=== PATIENT | male | born 1945 | race Caucasian/White ===

== ENCOUNTER 2023-12-24 13:12 | Outpatient (OUT) | payer MEDICARE, OTHER, SELFPAY ==
--- NOTE | 2023-12-24 | XR_ITS ---
The [address] [address] Patient Name: ELIZABETH BOOTH MRN: [id number] date: 1945 Sex: M Assigned Patient Location: [facility] Current Patient Location: Accession/Order Number: [id number] Exam Date: 12/24/2023 13:15 Report Date: 12/26/2023 07:52 At the request of: SUNI GAMBOA Procedure: XR lumbar spine min 4V EXAMINATION: XR lumbar spine min 4V HISTORY: LUMBAR SPINE PAIN COMPARISON: No relevant comparison available. FINDINGS: BONES: Grade 1 retrolisthesis of L3 on 4 and L4 on 5; no change in alignment during flexion and extension. No fracture or bone lesion. Prominent anterior degenerative endplate osteophytes. Moderate marked degenerative facet arthropathy L3-L4 through L5-S1 resulting in bone encroachment on the neural foramen. DISC SPACES: Moderate narrowing L3-L4, L4-L5, L5-S1. Mild narrowing at other levels. PARASPINOUS: Atherosclerotic disease of aorta without appreciable aneurysm. OTHER: Negative. XR/XR lumbar spine min 4V IMPRESSION: 1. Multilevel moderate degenerative disc disease and moderate to marked facet arthropathy with narrowing of the neural foramen at L3-L4 through L5-S1, and likely central canal narrowing. Consider MRI for further evaluation. Electronically authenticated by: BRENDON IRELAND Date: 12/26/2023 07:52
== END 2023-12-24 13:13 | disposition home or self-care (01) ==
LOC: RAD 13:13
PROVIDERS: Visit Provider Orthopaedic Surgery Orthopaedic Surgery of the Spine
DX: M54.50 Low back pain, unspecified (principal); M51.36 Other intervertebral disc degeneration, lumbar region
CPT/HCPCS: 72110

== ENCOUNTER 2024-02-26 09:49 | Outpatient (OUT) | payer MEDICARE, OTHER, SELFPAY ==
--- NOTE | 2024-02-26 | XR_ITS ---
The [address] [address] Patient Name: ELIZABETH BOOTH MRN: [id number] date: 1945 Sex: M Assigned Patient Location: Current Patient Location: Accession/Order Number: [id number] Exam Date: 02/26/2024 09:50 Report Date: 03/01/2024 09:09 At the request of: SUNI GAMBOA Procedure: XR lumbar spine 2-3V EXAMINATION: XR lumbar spine 2-3V HISTORY: LUMBAR SPINE PAIN COMPARISON: XR lumbar spine 12/24/2023 FINDINGS: BONES: Posterior mechanical fusion of L3-4-5 (L3-4-5 on the left via pedicle screws and rods; L4-5 on the right via pedicle screws and rods). Posterior decompression of L3, L4, and L5. Slight left convex curvature lumbar spine. Stable grade 1 retrolisthesis of L3 on 4 and L4 on 5. Multilevel moderate degenerative facet arthropathy. DISC SPACES: Mild/moderate disc space narrowing L3-4 and L4-5. Mild narrowing L5-S1. PARASPINOUS: Negative. No paraspinous abnormality is seen. OTHER: Negative. XR/XR lumbar spine 2-3V IMPRESSION: 1. Posterior mechanical fusion and decompression of lower lumbar spine with grossly stable degenerative changes. Electronically authenticated by: BRENDON IRELAND Date: 03/01/2024 09:09
== END 2024-02-26 09:50 | disposition home or self-care (01) ==
LOC: EC 09:49
PROVIDERS: Visit Provider Orthopaedic Surgery Orthopaedic Surgery of the Spine
DX: M54.50 Low back pain, unspecified (principal); Z98.1 Arthrodesis status
CPT/HCPCS: 72100

== ENCOUNTER 2024-06-17 11:23 | Outpatient (OUT) | payer MEDICARE, OTHER, SELFPAY ==
--- NOTE | 2024-06-17 | XR_ITS ---
[address] [address] Patient Name: ELIZABETH BOOTH MRN: [id number] date: 1945 Sex: M Assigned Patient Location: Current Patient Location: Accession/Order Number: [id number] Exam Date: 06/17/2024 22:07 Report Date: 06/17/2024 22:13 At the request of: SUNI GAMBOA MD Procedure: XR lumbar spine 2-3V 2 views Lumbar Spine HISTORY: Lumbar spine pain. Follow-up lumbar fusion COMPARISON: 02/26/2024 POSTSURGICAL CHANGES: Stable hardware. BONY ALIGNMENT: Stable HYPERMOBILITY:No bending imaging. LISTHESIS:Similar mild degenerative listhesis FRACTURE: None DEGENERATIVE CHANGES: Similar degenerative change SOFT TISSUES: Atherosclerosis of the aorta BONY MINERALIZATION:Adequate XR/XR lumbar spine 2-3V IMPRESSION: Stable degenerative and postsurgical change. Impression dictated by: Jhon Epstein M.D.06/17/2024 10:13 PM Dictation Location: [facility] Electronically authenticated by: [id number] Y Date: 06/17/2024 22:13
--- OUTSIDE RECORDS SUMMARY | 2024-06-17 11:28 | XMS_ITS | CCD ---
Author Organization [facility] Care Team Providers Care Laboratory Inspector Name Role Phone Dario Smith Unavailable Unavailable Dario Smith Unavailable Unavailable Tereso Orozco Primary Care Provider Tereso Orozco Primary Care Provider CHRISTINE, RONNIE H. Referring Unavailable TEREOS OROZCO Primary Care Unavailable CHRISTINE, RONNIE H. Admitting Unavailable CHRISTINE, RONNIE H. Attending Unavailable TERESO OROZCO Primary Care Unavailable CHRISTINE, RONNIE H. Attending Unavailable CHRISTINE, RONNIE H. Referring Unavailable TERESO OROZCO Primary Care Unavailable Tereso Orozco Primary Care Provider [phone] [place] EMERGENCY MEDICINE - PHYSICAL EDUCATION AIDE, Tereso Doll Primary Care Provider Ernesto EMERGENCY MEDICINE - PHYSICAL EDUCATION AIDE, Tereso Doll Primary Care Provider Ernesto EMERGENCY MEDICINE - PHYSICAL EDUCATION AIDE, Tereso Doll Primary Care Provider Unavailable Primary Care Provider Unavailabl e [place] EMERGENCY MEDICINE - PHYSICAL EDUCATION AIDE, Tereso Doll Primary Care Provider Ernesto EMERGENCY MEDICINE - PHYSICAL EDUCATION AIDE, Tereso Doll Primary Care Provider [place] PHYSICAL EDUCATION AIDE, Tereso Doll Primary Care Provider Ernesto MARTE, Tereso Doll Primary Care Provider [phone] CLEOPATRA SOTELO Attending Unavailable CLEOPATRA SOTELO Admitting Unavailable TERESO OROZCO Primary Care Unavailable TERESO OROZCO Primary Care Unavailable TERESO OROZCO Referring Unavailable VIOLET PIÑA Attending Unavailable VIOLET PIÑA Referring Unavailable TERESO OROZCO Primary Care Unavailable TERESO OROZCO Primary Care Unavailable ALANNA BEATTY Referring Unavailable HARLEEN BARBA Referring Unavailable TERESO OROZCO Primary Care Unavailable TERESO OROZCO Referring Unavailable TERESO OROZCO Primary Care Unavailable OYLA, SELVON F Referring Unavailable TERESO OROZCO Primary Care Unavailable TERESO OROZCO Referring Unavailable ERNESTO, TERESO Doll Primary Care Unavailable ERNESTO, TERESO Doll Primary Care Unavailable TERESO OROZCO Referring Unavailable ERNESTO, TERESO Doll Primary Care Unavailable TERESO OROZCO Referring Unavailable AYANA, VIOLET Attending Unavailable AYANA, VIOLET Referring Unavailable ERNESTO, TERESO Doll Primary Care Unavailable ERNESTO, TERESO Doll Primary Care Unavailable ERNESTOTERESO Referring Unavailable YOLA, SELVON F Referring Unavailable ERNESTO, TERESO Doll Primary Care Unavailable YOLA, SELVON F Referring Unavailable ERNESTO, TERESO Doll Primary Care Unavailable YOLA, SELVON F Referring Unavailable ERNESTO, TERESO Doll Primary Care Unavailable ERNESTO, TERESO Doll Primary Care Unavailable ERNESTO, TERESO Doll Referring Unavailable ERNESTO, TERESO Doll Primary Care Unavailable ERNESTO, TERESO Doll Referring Unavailable AYANA, VIOLET Referring Unavailable ERNESTO, TERESO Doll Primary Care Unavailable TERESO OROZCO Primary Care Unavailable TERESO OROZCO Referring Unavailable YOLA, SELVON F Referring Unavailable TERESO OROZCO Primary Care Unavailable SOBIA DIANA Attending Unavailable YOLA, SELVON Referring Unavailable YOLA, SELVON Admitting Unavailable ERNESTO, TERESO Doll Primary Care Unavailable LILLY HAM Attending Unavailable YOLA, SELVON Referring Unavailable TERESO OROZCO Primary Care Unavailable YOLA, SELVON Admitting Unavailable SOBIA DIANA Attending Unavailable YOLA, SELVON Referring Unavailable TERESO OROZCO Primary Care Unavailable YOLA, SELVON Admitting Unavailable SOBIA DIANA Attending Unavailable YOLA, SELVON Referring Unavailable TERESO OROZCO Primary Care Unavailable YOLA, SELVON Admitting Unavailable LISSY JACQUES Attending Unavailable YOLA, SELVON Referring Unavailable TERESO OROZCO Primary Care Unavailable YOLA, SELVON Admitting Unavailable LISSY JACQUES Attending Unavailable YOLA, SELVON Referring Unavailable TERESO OROZCO Primary Care Unavailable YOLA, SELVON Admitting Unavailable ERNESTO, TERESO Doll Primary Care Unavailable DA GASPAR Attending Unavailable YOLA, SELVON Referring Unavailable YOLA, SELVON Admitting Unavailable LISSY JACQUES Attending Unavailable YOLA, SELVON Referring Unavailable YOLA, SELVON Admitting Unavailable TERESO OROZCO Primary Care Unavailable NEWHEBRONSONDRA Attending Unavailable YOLA, SELVON Referring Unavailable YOLA, SELVON Admitting Unavailable TERESO OROZCO Primary Care Unavailable [facility] Attending Unavailable YOLA, SELVON Referring Unavailable YOLA, SELVON Admitting Unavailable TERESO OROZCO Primary Care Unavailable TERESO OROZCO Primary Care Unavailable LISSY JACQUES Attending Unavailable YOLA, SELVON Referring Unavailable YOLA, SELVON Admitting Unavailable GOMPFDA Attending Unavailable YOLA, SELVON Referring Unavailable TERESO OROZCO Primary Care Unavailable YOLA, SELVON Admitting Unavailable GOMPFDA Attending Unavailable YOLA, SELVON Referring Unavailable TERESO OROZCO Primary Care Unavailable YOLA, SELVON Admitting Unavailable DK ANAYA Attending Unavailable YOLA, SELVON Referring Unavailable TERESO OROZCO Primary Care Unavailable YOLA, SELVON Admitting Unavailable GOMPFDA Attending Unavailable YOLA, SELVON Referring Unavailable TERESO OROZCO Primary Care Unavailable YOLA, SELVON Admitting Unavailable DK ANAYA Attending Unavailable YOLA, SELVON Referring Unavailable TERESO OROZCO Primary Care Unavailable YOLA, SELVON Admitting Unavailable LISSY JACQUES Attending Unavailable YOLA, SELVON Referring Unavailable TERESO OROZCO Primary Care Unavailable YOLA, SELVON Admitting Unavailable LISSY JACQUES Attending Unavailable YOLA, SELVON Referring Unavailable TERESO OROZCO Primary Care Unavailable YOLA, SELVON Admitting Unavailable SOBIA DIANA Attending Unavailable YOLA, SELVON Referring Unavailable TERESO OROZCO Primary Care Unavailable YOLA, SELVON Admitting Unavailable SOBIA DIANA Attending Unavailable YOLA, SELVON Referring Unavailable TERESO OROZCO Primary Care Unavailable YOLA, SELVON Admitting Unavailable SOBIA DIANA Attending Unavailable YOLA, SELVON Referring Unavailable YOLA, SELVON Admitting Unavailable TERESO OROZCO Primary Care Unavailable GOADINFDA Attending Unavailable YOLA, SELVON Referring Unavailable TERESO OROZCO Primary Care Unavailable YOLA, SELVON Admitting Unavailable LILLY HAM Attending Unavailable YOLA, SELVON Referring Unavailable TERESO OROZCO Primary Care Unavailable HARLEEN BARBA Admitting Unavailable Unallocated Shai GOFF Provider Primary Care Josafati andreia Violet Piña DO Unavailable CAITIE DEL CID Attending Unavailable Medications Current Medications Medication Drug Class(es) Dates Sig (Normalized) Sig (Original) acetaminophen 325 mg / oxyCODONE hydrochloride 7.5 mg oral tablet (2 sources) Opioid Agonist Start: 12-22-2019 End: 01-05-2020 oxyCODONE-acetaminop hen (PERCOCET) 7.5-325 MG per tablet Indications: Postoperative pain Take 1 tablet by mouth 2 times daily for 14 days. Intended supply: 30 days 40 tablet 0 12/22/2019 01/05/2020 Active albuterol 0.83 mg/ml inhalation solution (17 sources) beta2-Adrenergic Agonist Start: 12-28-2023 albuterol (PROVENTIL) (2.5 MG/3ML) 0.083% nebulizer solution Indications: Centrilobular emphysema (HCC) Take 3 mLs by nebulization every 6 hours as needed for Wheezing 360 mL 1 12/28/2023 Active Start: 06-26-2022 albuterol (PRO VENTIL) (2.5 MG/3ML) 0.083% nebulizer solution Indications: Centrilobular emphysema (HCC) USE 1 VIAL VIA NEBULIZER EVERY 4 HOURS NEEDED FOR WHEEZING or SHORTNESS OF BREATH 360 mL 1 06/26/2022 Active Start: 10-22-2021 albuterol (PRO VENTIL) (2.5 MG/3ML) 0.083% nebulizer solution Indications: Centrilobular emphysema (HCC) Take 3 mLs by nebulization every 4 hours as needed for Wheezing or Shortness of Breath 120 each 1 10/22/2021 Active amLODIPine 5 mg oral tablet (20 sources) Dihydropyridine Calcium Channel Amaris Start: 10-12-2023 take 1 tablet by mouth once daily for hypertension amLODIPine (NORVASC) 5 MG tablet Indications: Essential hypertension TAKE 1 TABLET BY MOUTH DAILY FOR HYPERTENSION AND SINUS TACHYCARDIA 90 tablet 3 10/12/2023 Active Start: 05-17-2023 take 1 tablet by mouth once da ernesto amLODIPine (NORVASC) 5 MG tablet Indications: Essential hypertension Take 1 tablet by mouth daily Hypertension, and sinus tachycardia 90 tablet 1 05/17/2023 Active Start: 10-27-2021 take 1 tablet by norm th in the morning for hypertension amLODIPine (NORVASC) 2.5 MG tablet Indications: Essential hypertension Take 1 tablet by mouth in the morning. For high blood pressure. 90 tablet 2 10/27/2021 Active Start: 09-05-2021 amLODIPine (NO RVASC) 2.5 MG tablet Indications: Essential hypertension TAKE 1 TABLET EVERY DAY 90 tablet 1 09/05/2021 Active Start: 02-19-2021 take 1 tablet by mouth once da ernesto amLODIPine (NORVASC) 2.5 MG tablet Indications: Essential hypertension Take 1 tablet by mouth daily 90 tablet 1 02/19/2021 Active Start: 09-17-2020 amLODIPine (NO RVASC) 2.5 MG tablet Indications: Essential hypertension TAKE 1 TABLET EVERY DAY 90 tablet 1 09/17/2020 Active Start: 06-30-2019 take 1 tablet by mouth once da ernesto amLODIPine (NORVASC) 2.5 MG tablet Indications: Essential hypertension Take 1 tablet by mouth daily 90 tablet 1 02/17/2020 Active Start: 11-10-2018 End: 02-08-2019 take 1 tablet by mouth once daily amLODIPine (NORVASC) 2.5 MG tablet Indications: Essential hypertension Take 1 tablet by mouth daily 90 tablet 1 11/10/2018 02/08/2019 Active 12 hr buPROPion hydrochloride 150 mg extended release oral tablet (1 source) Aminoketone Start: 02-19-2021 take 1 tablet by mouth twice daily buPROPion (WELLBUTRIN SR) 150 MG extended release tablet Take 1 tablet by mouth 2 times daily Smoking cessation 60 tablet 2 02/19/2021 Active calcium chloride 0.0014 meq/ml / potassium chloride 0.004 meq/ml / sodium chloride 0.103 meq/ml / sodium lactate 0.028 meq/ml injectable solution (3 sources) Start: 06-16-2023 lactated ringe rs IV soln infusion Start: 12-22-2019 lactated ringe rs infusion cephalexin 500 mg oral capsule (2 sources) Cephalosporin Antibacterial Start: 12-22-2019 End: 12-29-2019 take 1 capsule by mouth three times daily cephALEXin (KEFLEX) 500 MG capsule Take 1 capsule by mouth 3 times daily for 7 days 21 capsule 0 12/22/2019 12/29/2019 Active clindamycin 300 mg oral capsule (1 source) Lincosamide Antibacterial Start: 03-01-2021 End: 03-08-2021 take 1 capsule by mouth three times daily clindamycin (CLEOCIN) 300 MG capsule Take 1 capsule by mouth 3 times daily for 7 days 21 capsule 0 03/01/2021 03/08/2021 Active CPAP Machine MISC (20 sources) CPAP Machine MIS C by Does not apply route daily Active CPAP Machine MIS C by Does not apply route daily 0 Active diazePAM 5 mg oral tablet (2 sources) Benzodiazepine Start: 12-22-2019 End: 01-05-2020 take 1 tablet by mouth every eight hours as needed for anxiety diazePAM (VALIUM) 5 MG tablet Indications: Postoperative pain Take 1 tablet by mouth every 8 hours as needed for Anxiety or Sleep for up to 14 days. 40 tablet 0 12/22/2019 01/05/2020 Active 1 ml diphenhydrAMINE hydrochloride 50 mg/ml cartridge (1 source) Histamine-1 Receptor Antagonist Start: 12-22-2019 End: 12-22-2019 diphenhydrAMINE (BENADRYL) injection 12.5 mg 2 ml fentaNYL 0.05 mg/ml injection (1 source) Opioid Agonist Start: 12-22-2019 fentaNYL (SUBLIMAZE) injection 25 mcg 30 actuat fluticasone furoate 0.1 mg/actuat / umeclidinium 0.0625 mg/actuat / vilanterol 0.025 mg/actuat dry powder inhaler (2 sources) Anticholinergic, Corticosteroid, beta2-Adrenergic Agonist Start: 10-25-2019 take 1 puff(s) by inhalation once daily fluticasone-umeclid in-vilant (TRELEGY ELLIPTA) 100-62.5-25 MCG/INH AEPB Inhale 1 puff into the lungs daily 1 each 0 10/25/2019 Active gabapentin 300 mg oral capsule (2 sources) Anti-epileptic Agent Start: 03-18-2024 take 1 capsule by mouth three times daily gabapentin (Neurontin) 300 MG capsule 1 cap(s) orally 3 times a day for 30 day(s) 03/18/2024 Active hydrocortisone 25 mg/ml topical cream (1 source) Corticosteroid Start: 12-20-2018 End: 01-04-2019 hydrocortisone (ANUSOL-HC) 2.5 % rectal cream Insert into the rectum 2 (two) times a day Then as needed for hemorrhoid flare up for 15 days . 1 g 1 12/20/2018 01/04/2019 Active ipratropium bromide 0.2 mg/ml inhalation solution (17 sources) Anticholinergic Start: 12-28-2023 ipratropium (ATROVENT) 0.02 % nebulizer solution Indications: Centrilobular emphysema (HCC) Take 2.5 mLs by nebulization 3 times daily 250 mL 1 12/28/2023 Active Start: 10-24-2022 ipratropium (A TROVENT) 0.02 % nebulizer solution Indications: Centrilobular emphysema (HCC) Take 2.5 mLs by nebulization 4 times daily 202 mL 1 10/24/2022 Active Start: 10-22-2021 ipratropium (A TROVENT) 0.02 % nebulizer solution Indications: Centrilobular emphysema (HCC) Take 2.5 mLs by nebulization 4 times daily 67.5 mL 1 10/22/2021 Active 10 ml lidocaine hydrochloride 10 mg/ml injection (1 source) Antiarrhythmic, Amide Local Anesthetic Start: 12-22-2019 End: 12-22-2019 lidocaine PF 1 % injection 1 mL meloxicam 7.5 mg oral tablet (9 sources) Nonsteroidal Anti-inflammatory Drug Start: 11-10-2023 take 1 tablet by mouth once daily as needed for pain meloxicam (MOBIC) 7.5 MG tablet Take 1 tablet by mouth daily as needed for Pain (for right hip pain/osteoarthritis take with food) Use sparingly 30 tablet 11/10/2023 Active 1 ml meperidine hydrochloride 25 mg/ml cartridge (1 source) Opioid Agonist Start: 12-22-2019 meperidine (DEMEROL) injection 12.5 mg 2 ml metoclopramide 5 mg/ml prefilled syringe (1 source) Dopamine-2 Receptor Antagonist Start: 12-22-2019 End: 12-22-2019 metoclopramide (REGLAN) injection 10 mg montelukast 10 mg oral tablet (20 sources) Leukotriene Receptor Antagonist Start: 02-25-2023 take 1 tablet by mouth once daily montelukast (SINGULAIR) 10 MG tablet Indications: Centrilobular emphysema (HCC) Take 1 tablet by mouth nightly 90 tablet 1 02/25/2023 Active Start: 10-27-2021 take 1 tablet by norm th once daily montelukast (SINGULAIR) 10 MG tablet Take 1 tablet by mouth nightly 90 tablet 2 10/27/2021 Active Start: 02-19-2021 take 1 tablet by norm th once daily montelukast (SINGULAIR) 10 MG tablet Take 1 tablet by mouth nightly 90 tablet 2 02/19/2021 Active Start: 08-27-2020 montelukast (S INGULAIR) 10 MG tablet TAKE 1 TABLET EVERY NIGHT 90 tablet 1 08/27/2020 Active Start: 02-17-2020 take 1 tablet by norm th once daily montelukast (SINGULAIR) 10 MG tablet Take 1 tablet by mouth nightly 90 tablet 1 02/17/2020 Active Start: 10-11-2019 End: 12-22-2019 montelukast (SINGULAIR) 10 M G tablet TAKE 1 TABLET EVERY DAY 90 tablet 1 10/11/2019 12/22/2019 Discontinued (Stop Taking at Discharge) Start: 08-27-2018 take 1 tablet by norm th once daily montelukast (SINGULAIR) 10 MG tablet Take 1 tablet by mouth daily 90 tablet 1 08/27/2018 Active omeprazole 20 mg delayed release oral capsule (20 sources) Proton Pump Inhibitor Start: 04-20-2023 omeprazole (PRILOSEC ) 20 MG delayed release capsule Indications: Gastroesophageal reflux disease without esophagitis TAKE 1 CAPSULE EVERY DAY FOR GASTRIC REFLUX 90 capsule 3 09/17/2023 Active Start: 10-27-2021 take 1 capsule by mo uth in the morning for gastroesophageal reflux disease omeprazole (PRILOSEC) 20 MG delayed release capsule Indications: Gastroesophageal reflux disease without esophagitis Take 1 capsule by mouth in the morning. For gastric reflux. 90 capsule 1 10/27/2021 Active Start: 09-05-2021 omeprazole (MD ILOSEC) 20 MG delayed release capsule Indications: Gastroesophageal reflux disease without esophagitis TAKE 1 CAPSULE EVERY DAY 90 capsule 1 09/05/2021 Active Start: 02-19-2021 take 1 capsule by mouth once d aily omeprazole (PRILOSEC) 20 MG delayed release capsule Indications: Gastroesophageal reflux disease without esophagitis Take 1 capsule by mouth Daily 90 capsule 1 02/19/2021 Active Start: 08-27-2020 omeprazole (MD ILOSEC) 20 MG delayed release capsule Indications: Gastroesophageal reflux disease without esophagitis TAKE 1 CAPSULE EVERY DAY 90 capsule 1 08/27/2020 Active Start: 06-30-2019 take 1 capsule by mouth once d aily omeprazole (PRILOSEC) 20 MG delayed release capsule Indications: Gastroesophageal reflux disease without esophagitis Take 1 capsule by mouth Daily 90 capsule 1 02/17/2020 Active Start: 11-10-2018 End: 02-08-2019 take 1 capsule by mouth once daily omeprazole (PRILOSE C) 20 MG delayed release capsule Indications: Gastroesophageal reflux disease without esophagitis Take 1 capsule by mouth Daily 90 capsule 1 11/10/2018 02/08/2019 Active 2 ml ondansetron 2 mg/ml injection (1 source) Serotonin-3 Receptor Antagonist Start: 12-22-2019 End: 12-22-2019 ondansetron (ZOFRAN) injection 4 mg pramipexole dihydrochloride 0.125 mg oral tablet (9 sources) Nonergot Dopamine Agonist Start: 12-04-2023 take 1 tablet by mouth once daily pramipexole (MIRAPEX) 0.125 MG tablet Take 1 tablet by mouth nightly 3 hours before bed for restless leg 90 tablet 1 12/04/2023 Active Start: 11-10-2023 take 1 tablet by norm th once daily pramipexole (MIRAPEX) 0.125 MG tablet Take 1 tablet by mouth nightly 3 hours before bed for restless leg 30 tablet 0 11/10/2023 Active pravastatin sodium 80 mg oral tablet (20 sources) HMG-CoA Reductase Inhibitor Start: 12-01-2022 pravastatin (PRAVACH OL) 80 MG tablet TAKE 1 TABLET EVERY DAY FOR HYPERCHOLESTEROLEMIA 90 tablet 3 09/17/2023 Active Start: 10-11-2021 pravastatin (P RAVACHOL) 80 MG tablet TAKE 1 TABLET EVERY DAY 90 tablet 1 10/11/2021 Active Start: 02-19-2021 take 1 tablet by norm th once daily pravastatin (PRAVACHOL) 80 MG tablet Take 1 tablet by mouth daily 90 tablet 1 02/19/2021 Active Start: 08-27-2020 pravastatin (P RAVACHOL) 80 MG tablet TAKE 1 TABLET EVERY DAY 90 tablet 1 08/27/2020 Active Start: 10-11-2019 take 1 tablet by norm th once daily pravastatin (PRAVACHOL) 80 MG tablet Take 1 tablet by mouth daily 90 tablet 1 02/17/2020 Active Start: 08-27-2018 End: 08-27-2019 take 1 tablet by mouth once daily in the evening pravastatin (PRAVACHOL) 80 MG tablet Take 1 tablet by mouth every evening 90 tablet 1 08/27/2018 08/27/2019 Active predniSONE 20 mg oral tablet (1 source) Start: 11-16-2019 End: 11-26-2019 take 1 tablet by mouth once daily at mealtime predniSONE (DELTASONE) 20 MG tablet Indications: Lumbosacral radiculopathy at L5 , Foot drop, right Take 1 tablet by mouth daily for 10 days Take with food For lumbar radiculopathy and right foot drop 10 tablet 0 11/16/2019 11/26/2019 Active psyllium 3400 mg powder for oral suspension (1 source) Start: 12-20-2018 End: 03-20-2019 take 1 dose by mouth once daily psyllium husk, with sugar, (METAMUCIL, KONSYL) 3.4 gram packet Take 1 packet by mouth daily Mix in a glass of water daily . 90 packet 5 12/20/2018 03/20/2019 Active Respiratory Therapy Supplies (NEBULIZER/TUBING/MOUT HPIECE) KIT (17 sources) Start: 10-22-2021 Respiratory Th erapy Supplies (NEBULIZER/TUBING/MOUTHP IECE) KIT Indications: Centrilobular emphysema (HCC) 1 kit by Does not apply route daily as needed (shortness of breath/copd) 1 kit 10/22/2021 Active Start: 10-22-2021 Respiratory Th erapy Supplies (NEBULIZER/TUBING/MOUTHPIECE) KIT Indications: Centrilobular emphysema (HCC) 1 kit by Does not apply route daily as needed (shortness of breath/copd) 1 kit 0 10/22/2021 Active sennosides, care home 8.6 mg oral tablet (2 sources) Start: 12-22-2019 End: 12-21-2020 take 2 tablets by mouth twice daily senna (SENOKOT) 8.6 MG tablet Take 2 tablets by mouth 2 times daily 60 tablet 11 12/22/2019 12/21/2020 Active 3 ml sodium chloride 9 mg/ml injection (3 sources) Start: 12-22-2019 sodium chlorid e flush 0.9 % injection 10 mL Start: 12-20-2018 End: 12-20-2018 sodium chloride 0.9% (NS) thiamine 50 mg oral tablet (1 source) Start: 02-17-2020 take 1 capsule by mouth once daily Thiamine HCl 50 MG CAPS Take 50 mg by mouth daily Mild alcohol use 14 capsule 0 02/17/2020 Active Completed/Discontinued Medications Medication Drug Class(es) Dates Sig (Normalized) Sig (Original) gadobenate dimeglumine (MULTIHANCE) injection 20 mL (1 source) Start: 06-10-2023 End: 06-10-2023 gadobenate dimeglumine (MULTIHANCE) injection 20 mL technetium sestamibi (CARDIOLITE) injection 10 millicurie (1 source) Start: 02-03-2022 End: 02-03-2022 technetium sestamibi (CARDIOLITE) injection 10 millicurie technetium sestamibi (CARDIOLITE) injection 30 millicurie (1 source) Start: 02-03-2022 End: 02-03-2022 technetium sestamibi (CARDIOLITE) injection 30 millicurie Problems Active Problems Problem Classification Problem Date Documented Date Episodic/Chronic Acquired foot deformities (1 source) Right foot drop; Translations: [Foot drop, right] Alcohol-related disorders (20 sources) Alcohol abuse; Translations: [Alcohol abuse, uncomplicated] Onset: 09-28-2017 09-28-2017 Chronic Chronic obstructive pulmonary disease and bronchiectasis (20 sources) Centriacinar emphysema; Translations: [Centrilobular emphysema] Onset: 10-22-2021 Chronic Coronary atherosclerosis and other heart disease (1 source) Calcification of coronary artery; Translations: [Atherosclerotic heart disease of [place] coronary artery without angina pectoris] Chronic Disorders of lipid metabolism (20 sources) Hyperlipidemia; Translations: [Mixed hyperlipidemia] Onset: 04-20-2023 11-11-2011 Chronic Esophageal disorders (20 sources) Gastroesophageal reflux disease without esophagitis; Translations: [Gastro-esophageal reflux disease without esophagitis] Onset: 10-27-2019 10-27-2019 Chronic Essential hypertension (20 sources) Hypertensive disorder; Translations: [Essential hypertension] 11-11-2011 Chronic Malaise and fatigue (3 sources) Asthenia; Translations: [Weakness] Onset: 03-04-2024 03-04-2024 Episodic Osteoarthritis (4 sources) Osteoarthritis of right hip joint; Translations: [Unilateral primary osteoarthritis, right hip] Onset: 11-11-2023 11-11-2023 Chronic Other aftercare (20 sources) Surgical follow-up; Translations: [Encounter for other orthopedic aftercare] Onset: 02-09-2024 01-25-2024 Episodic Other aftercare (3 sources) Follow-up orthopedic assessment; Translations: [Encounter for other orthopedic aftercare] Onset: 04-18-2024 03-04-2024 Episodic Other aftercare (2 sources) Encounter for other orthopedic aftercare; Translations: [Encounter for other orthopedic aftercare] Onset: 02-09-2024 Episodic Other and unspecified benign neoplasm (4 sources) Melanocytic nevus of trunk; Translations: [Melanocytic nevi of trunk] 05-22-2023 Episodic Other connective tissue disease (1 source) Bursitis of olecranon of left elbow; Translations: [Olecranon bursitis, left elbow] Episodic Other lower respiratory disease (1 source) Dyspnea; Translations: [Shortness of breath] Episodic Other nervous system disorders (1 source) Postoperative pain ; Translations: [Postoperative pain] Episodic Other nervous system disorders (1 source) Impairment of balance; Translations: [Other abnormalities of gait and mobility] 06-10-2023 Episodic Other nervous system disorders (1 source) Abnormal gait; Translations: [Unsteadiness on feet] 06-10-2023 Episodic Other non-epithelial cancer of skin (4 sources) History of squamous cell carcinoma of skin; Translations: [Personal history of other malignant neoplasm of skin] 05-22-2023 Episodic Other non-traumatic joint disorders (1 source) Hip pain; Translations: [Pain in right hip] 11-11-2023 Episodic Other screening for suspected conditions (not mental disorders or infectious disease) (8 sources) Patient encounter status; Translations: [Encounter for screening for other suspected endocrine disorder] Onset: 04-20-2023 Episodic Other skin disorders (4 sources) Actinic keratosis; Translations: [Actinic keratosis] 05-22-2023 Episodic Other skin disorders (4 sources) Seborrheic keratosis; Translations: [Other seborrheic keratosis] 05-22-2023 Episodic Other skin disorders (2 sources) Lentiginosis; Translations: [Other melanin hyperpigmentation] 05-23-2024 Episodic Residual codes; unclassified (2 sources) Preoperative state; Translations: [Pre-operative clearance] Episodic Residual codes; unclassified (1 source) Pain; Translations: [Pain] Episodic Screening and history of mental health and substance abuse codes (1 source) Tobacco use and exposure - finding; Translations: [Personal history of tobacco use] Chronic Screening and history of mental health and substance abuse codes (6 sources) H/O: drug dependency; Translations: [Personal history of nicotine dependence] Onset: 01-06-2024 Episodic Substance-related disorders (20 sources) Nicotine dependence; Translations: [Smoker] Onset: 10-27-2019 10-27-2019 Chronic Unclassified (2 sources) Patient encounter status; Translations: [Preop testing] Unclassified (1 source) Low back pain, unspecified; Translations: [Low back pain, unspecified] Onset: 12-24-2023 Past or Other Problems Problem Classification Problem Date Documented Da te Episodic/Chronic Blindness and vision defects (1 source) Diplopia; Translations: [Diplopia] Onset: 04-20-2023 Episodic Cardiac dysrhythmias (1 source) Tachycardia, unspecified; Translations: [Tachycardia, unspecified] Onset: 04-20-2023 Episodic Conditions associated with dizziness or vertigo (1 source) Dizziness and giddiness; Translations: [Dizziness and giddiness] Onset: 05-06-2023 Episodic Diabetes mellitus without complication (20 sources) Impaired fasting glycaemia; Translations: [Impaired fasting glucose] Resolved: 09-28-2017 09-28-2017 Episodic Other aftercare (2 sources) Other skilled nursing (current) drug therapy; Translations: [Other long term care social worker (current) drug therapy] Onset: 06-02-2023 Episodic Other and unspecified benign neoplasm (20 sources) Adenomatous polyp of colon ; Translations: [Benign neoplasm of colon, unspecified] Onset: 09-28-2017 09-28-2017 Episodic Other gastrointestinal disorders (20 sources) Occult blood in stools; Translations: [Other fecal abnormalities] Onset: 12-26-2015 Resolved: 09-28-2017 09-28-2017 Episodic Other nervous system disorders (1 source) Unsteadiness on feet; Translations: [Unsteadiness on feet] Onset: 06-10-2023 Episodic Other nervous system disorders (3 sources) Other abnormalities of gait and mobility; Translations: [Other abnormalities of gait and mobility] Onset: 04-20-2023 Episodic Other non-traumatic joint disorders (3 sources) Pain in right hip; Translations: [Pain in right hip] Onset: 11-11-2023 Episodic Spondylosis; intervertebral disc disorders; other back problems (20 sources) Lumbosacral radiculopathy; Translations: [Spinal stenosis of lumbar region] Onset: 12-15-2019 12-15-2019 Episodic Unclassified (20 sources) Onset: 04-25-2022 Resolved: 04-25-2022 04-25-2022 Unclassified (1 source) Low back pain, unspecified; Translations: [Low back pain, unspecified] Onset: 12-24-2023 Results Test Name Value Interpretation Reference Range Facility No Panel Informationon 05-23 [facility] CT LUMBAR SPINE WO CONTRASTo n 03-08-2024 CT LUMBAR SPINE WO CONTRAST EXAM: CT LUMBAR SPINE WO CONTRAST CLINICAL INDICATION: Encounter for other orthopedic aftercare COMPARISON: Lumbar spine radiographs 02/26/2024. MRI lumbar spine 03/04/2024. TECHNIQUE: Multiple axial images were obtained of the lumbar spine. Soft tissue and bone windows in coronal and sagittal planes were obtained and reviewed. Dose reduction techniques were achieved by using automated exposure control and/or adjustment of mA and/or kV according to patient size and/or use of iterative reconstruction technique. FINDINGS: Osseous Mineralization: Mild osseous demineralization limits evaluation of fine osseous detail. Trauma: No fracture, traumatic malalignment, facet dislocation, or discrete epidural hemorrhage. Alignment: Mild posterior subluxation of L3 on L4. Vertebral Body Heights: Maintained. Soft Tissues: Normal. Spondylotic Changes: Multilevel spondylotic changes include varying degrees of intervertebral disc height loss, endplate sclerosis, osteophytic ridging, and facet/ligamentum flavum hypertrophy. Postoperative Changes: Intact posterior instrumented fusion from L3 to L5. Screws are well seated. No surrounding lucency. Solid osseous fusion along the posterior elements. Other: No scattered vascular calcifications. IMPRESSION: 1. No acute osseous abnormalities in the lumbar spine. 2. Multilevel spondylotic changes. 3. Intact posterior instrumented fusion from L3 to L5. Screws are well seated. No evidence of hardware complication. Interpreted by: Taina Fang DO Signed by: Taina Fang DO 03/08/24 Final result Normal [facility] MRI LUMBAR SPINE WO CONTRAST on 03-08-2024 MRI LUMBAR SPINE WO CONTRAST EXAM: MRI LUMBAR SPINE WO CONTRAST HISTORY: Encounter for other orthopedic aftercare COMPARISON: MR lumbar spine 11/17/2019. CT lumbar spine 11/16/2022 TECHNIQUE: Multiplanar multisequence MR imaging of the lumbar spine was performed without intravenous contrast. FINDINGS: Alignment: Similar straightening of the normal lumbar lordosis. Unchanged 7 mm retrolisthesis of L3 on L4. Vertebrae: Susceptibility artifact related to posterior spinal fusion hardware at L3-L5. Associated posterior decompressive change spanning L2-L5. Vertebral body heights are maintained. No marrow signal abnormalities to suggest neoplasm. Conus medullaris: Conus terminates in normal position at L2. Normal signal and contour. Degenerative changes: T12-L1: No substantial canal or foraminal stenosis. L1-L2: Moderate facet arthropathy. Disc desiccation with minimal disc height loss. No substantial canal or foraminal stenosis. L2-L3: Disc desiccation with mild disc height loss. Minimal disc bulge. Moderate left and right facet arthropathy. No substantial canal stenosis. Moderate left foraminal stenosis. L3-L4: Moderate disc height loss with uncovering of the disc secondary to retrolisthesis. Small superimposed left central protrusion. Posterior decompressive changes. No substantial canal stenosis. Moderate to advanced right and moderate left foraminal stenosis. L4-L5: Mild disc height loss. Residual marginal osteophytic spurring with small left central protrusion. Posterior decompressive change. No substantial canal stenosis. Advanced right greater than left foraminal stenosis. L5-S1: Moderate left facet arthropathy. Posterior decompressive change. No substantial canal stenosis. Advanced left and moderate right foraminal stenosis. Upper Sacrum: No focal lesion identified. Additional comments: Atrophy of the posterior paraspinal musculature. Bilateral renal cysts are present suboptimally evaluated on the current study, subcentimeter in size predominantly. Slightly larger superior pole left renal cyst measuring 2.5 cm without suspicious features seen on recent noncontrast lumbar spine CT. IMPRESSION: 1. Postsurgical changes of lumbar spine posterior decompression from L2 through L5 with posterior fixation hardware at L3-L5. 2. Improved patency of the spinal canal compared to prior MRI lumbar spine from 2020. 3. Persistent multilevel moderate and more advanced foraminal stenosis as described above. Interpreted by: Lili Raymond DO Signed by: Lili Raymond DO 03/08/24 Final result Normal [facility] CT LUNG SCREENING (INITIAL/A NNUAL)on 01-14-2024 CT LUNG SCREENING (INITIAL/ANNUAL) EXAM: CT LUNG SCREENING (INITIAL/ANNUAL) INDICATION: History of smoking greater than 50 pack years. 53 pack-year smoking history, current smoker. COMPARISON: 12/05/2022. 11/28/2021. 11/27/2020. 11/14/2019. TECHNIQUE: Low-dose axial CT imaging obtained through the chest for the purposes of lung cancer screening. Axial images and multiplanar reformatted images reviewed. Individualized dose optimization technique was used in order to meet ALARA standards for radiation dose reduction. In addition to vendor specific dose reduction algorithms, the dose reduction techniques vary based on the specific scanner utilized but frequently include automated exposure control, adjustment of the mA and/or kV according to patient size, and use of iterative reconstruction technique. FINDINGS: Mild centrilobular emphysema. Calcified mediastinal and left hilar lymph nodes. Pulmonary granulomatous calcifications. Interval development of peripheral peribronchial pulmonary opacities within the right lung base. Stable 3 mm right middle lobe juxta fissural pulmonary nodule. Within the included upper abdomen note is made of hepatic cysts. CORONARY ARTERIES: Coronary calcifications are heavy. FINDINGS: Solid nodule(s): <6 mm or new <4 mm; part solid nodule(s) <6 mm total diameter on baseline screening; nonsolid nodule(s) (GGN): <20 mm or greater than/equal to 20 mm and unchanged or slowly growing; category 3 or 4 nodules unchanged for greater than/equal to 3 months. MANAGEMENT: Continue annual screening with LDCT in 12 months. Lung-RADs S FINDINGS: Peripheral peribronchial pulmonary opacification right lower lobe. MANAGEMENT: Recommend correlation for signs and symptoms of underlying pneumonitis. IMPRESSION: 1. Interval development of peripheral mild peribronchial pulmonary opacities within the right lung base which may be secondary to an underlying infectious or inflammatory pneumonitis. 2. No new or enlarging pulmonary nodules. 3. Severe coronary arterial calcifications. 4. Mild emphysema. 5. Hepatic cysts. Lung-RADS 2 Interpreted by: Ricardo Whitten MD Signed by: Ricardo Whitten MD 01/14/24 Final result Normal [facility] Lipid Panelon 12-30-2023 Cholesterol [Mass/Vol] 130 mg/dL 0 - 1 99 mg/dL [facility] Comment on above: Cholesterol Guidelines: <200 Desirable 200-240 Borderline >240 Undesirable Cholesterol in HDL [Mass/Vol] 56 mg/dL 40 - PINF mg/dL [facility] Comment on above: HDL Guidelines: <40 Undesirable 40-59 Borderline >59 Desirable Cholesterol in LDL [Mass/Vol] 58 mg/dL 0 - 100 mg/dL [facility] Comment on above: LDL Guidelines: <100 Desirable 100-129 Near to/above Desirable 130-159 Borderline >159 Undesirable Direct (measured) LDL and calculated LDL are not interchangeable tests. Cholesterol in VLDL [Mass/Vol] 16 mg/dL [facility] Cholesterol.total/Chol esterol in HDL [Mass ratio] 2.0 {ratio} [facility] Triglyceride [Mass/Vol] 82 mg/dL NINF - 150 mg/dL [facility] Comment on above: Triglyceride Guidelines: <150 Desirable 150-199 Borderline 200-499 High >499 Very high Based on AHA Guidelines for fasting triglyceride, January 2012. [facility] Lipid Profileon 12-30-2023 Cholesterol [Mass/Vol] 130 mg/dL Normal 0-199 [facility] Comment on above: Result Comment: Cholesterol Guidelines: <200 Desirable 200-240 Borderline >240 Undesirable Performed By: #### L CLAUDETTE PSAS ####[address] [place] [address] lab Director: Bryan Rincon MD Cholesterol in HDL [Mass/Vol] 56 mg/dL Normal >40 [facility] Comment on above: Result Comment: HDL Guidelines: <40 Undesirable 40-59 Borderline >59 Desirable Performed By: #### L IPR, PSAS ####[facility] [address] [place] [address] Lab Director: Bryan Rincon MD Cholesterol in LDL [Mass/Vol] 58 mg/dL Normal 0-100 [facility] Comment on above: Result Comment: LDL Guidelines: <100 Desirable 100-129 Near to/above Desirable 130-159 Borderline >159 Undesirable Direct (measured) LDL and calculated LDL are not interchangeable tests. Performed By: #### L IPR, PSAS ####[facility] [address] [place], [place] [phone] Director: Bryan Rincon MD Cholesterol in VLDL [Mass/Vol] 16 mg/dL Normal [facility] Comment on above: Performed By: #### L IPR, PSAS ####[facility] [address] [place] [address] Lab Director: Bryan Rincon MD Cholesterol.total/Chol esterol in HDL [Mass ratio] 2.0 {ratio} Normal [facility] Comment on above: Performed By: #### L IPR, PSAS ####[facility] [address] [place], [place] [phone] Director: Bryan Rincon MD Triglyceride [Mass/Vol] 82 mg/dL Normal <150 [facility] Comment on above: Result Comment: Triglyceride Guidelines: <150 Desirable 150-199 Borderline 200-499 High >499 Very high Based on AHA Guidelines for fasting triglyceride, January 2012. Performed By: #### L IPR, PSAS ####[facility] [address] [place], [place] [phone] Director: Bryan Rincon MD PSA Screeningon 12-30-2023 Prostate specific Ag [Mass/Vol] 0.60 ng/mL 0.00 - 4.00 ng/mL [facility] Comment on above: The David ECLIA as say is used. Results obtained with different assay methods cannot be used interchangeably. [facility] PSA, Screeningon 12-30-2023 Prostatic Spec. Ag 0.60 ng/mL Normal 0.00-4.00 [facility] Comment on above: Result Comment: The David ECLIA assay is used. Results obtained with different assay methods cannot be used interchangeably. Performed By: #### L IPR, PSAS ####[facility] [place] [address] lab Director: Bryan Rincon MD FL ARTHR/ASP/INJ MAJOR JT/BU RSA RT WO USon 12-29-2023 FL ARTHR/ASP/INJ MAJOR JT/BURSA RT WO US EXAM: FL ARTHROGRAM RIGHT HIP S AND I, FL GUIDED NEEDLE PLACEMENT, FL ARTHR/ASP/INJ MAJOR JT/BURSA RT WO US HISTORY: Primary osteoarthritis of right hip. COMPARISON: None. TECHNIQUE: Right hip pain injection. FINDINGS: 10 mL 1% lidocaine local anesthesia through a 25-gauge needle. Through a 22-gauge 3.5 needle a combination of 4 mL 0.5% bupivacaine and 1 mL (80 mg) methylprednisolone instilled after verification of intra-articular needle placement with 2 mL Isovue-300. IMPRESSION: Pain injection right hip. I gave the home-going instructions. Patient tolerated the procedure well. Interpreted by: Tony Awad Jr., MD Signed by: Tony Awad Jr., MD 12/29/23 Final result Normal [facility] FL ARTHROGRAM RIGHT HIP S AN D Ion 12-29-2023 FL ARTHROGRAM RIGHT HIP S AND I EXAM: FL ARTHROGRAM RIGHT HIP S AND I, FL GUIDED NEEDLE PLACEMENT, FL ARTHR/ASP/INJ MAJOR JT/BURSA RT WO US HISTORY: Primary osteoarthritis of right hip. COMPARISON: None. TECHNIQUE: Right hip pain injection. FINDINGS: 10 mL 1% lidocaine local anesthesia through a 25-gauge needle. Through a 22-gauge 3.5 needle a combination of 4 mL 0.5% bupivacaine and 1 mL (80 mg) methylprednisolone instilled after verification of intra-articular needle placement with 2 mL Isovue-300. IMPRESSION: Pain injection right hip. I gave the home-going instructions. Patient tolerated the procedure well. Interpreted by: Tony Awad Jr., MD Signed by: Tony Awad Jr., MD 12/29/23 Final result Normal [facility] FL GUIDED NEEDLE PLACEMENTon 12-29-2023 FL GUIDED NEEDLE PLACEMENT EXAM: FL ARTHROGRAM RIGHT HIP S AND I, FL GUIDED NEEDLE PLACEMENT, FL ARTHR/ASP/INJ MAJOR JT/BURSA RT WO US HISTORY: Primary osteoarthritis of right hip. COMPARISON: None. TECHNIQUE: Right hip pain injection. FINDINGS: 10 mL 1% lidocaine local anesthesia through a 25-gauge needle. Through a 22-gauge 3.5 needle a combination of 4 mL 0.5% bupivacaine and 1 mL (80 mg) methylprednisolone instilled after verification of intra-articular needle placement with 2 mL Isovue-300. IMPRESSION: Pain injection right hip. I gave the home-going instructions. Patient tolerated the procedure well. Interpreted by: Tony Awad Jr., MD Signed by: Tony Awad Jr., MD 12/29/23 Final result Normal [facility] MRSA, DNA, Nasalon MRSA, DNA, Nasal Negative Normal [facility] Comment on above: Result Comment: NEGA TIVE: MRSA DNA not detected by nucleic acid amplification. Results should be used as an adjunct to nosocomial control efforts to identify patients needing enhanced precautions. The test is not intended to identify patients with staphylococcal infections. Results should not be used to guide or monitor treatment for MRSA infections. Performed By: #### P TT, PT, BMP, CDP ####[facility] [address] [place] [address] Lab Director: Declan Jacome MD#### MRSANO ####[id number] Lab Director: Bryan Rincon [facility] [address] [place] [address] lab Director: Declan Jacome MD XR CHEST (2 VW)on 12-25-2023 XR CHEST (2 VW) EXAM: XR CHEST (2 VW ) HISTORY: Pre-op chest exam COMPARISON: None. IMPRESSION: FINDINGS/IMPRESSION: 1. Heart size normal. 2. Likely emphysematous overaeration, moderate. 3. No failure or pneumonia. 4. Benign calcified granulomas left lung hilum. Interpreted by: Tony Awad Jr., MD Signed by: Tony Awad Jr., MD 12/25/23 Final result Normal [facility] XR Chest 2 Viewson FINDINGS/IMPRESSION: 1. Heart size normal. 2. Likely emphysematous overaeration, moderate. 3. No failure or pneumonia. 4. Benign calcified granulomas left lung hilum. [facility]PN RIS CONSOLIDATED EXAM: XR CHEST (2 VW ) HISTORY: Pre-op chest exam COMPARISON: None. [facility] RIS CONSOLIDATED Tony Awad Jr., MD - 12/25/2023 EXAM: XR CHEST (2 VW) HISTORY: Pre-op chest exam COMPARISON: None. IMPRESSION: FINDINGS/IMPRESSION: 1. Heart size normal. 2. Likely emphysematous overaeration, moderate. 3. No failure or pneumonia. 4. Benign calcified granulomas left lung hilum. [facility] XR Chest 2 ViewsOrdered By: Tony Awad on 12-25-2023 [facility] Work Phone: APTTon 12-24-2023 aPTT Coag (Bld) [Time] 31.9 s Normal 23.9-33.8 [facility] Comment on above: Result Comment: IV Heparin Therapy Range: 62.0-94.0 Performed By: #### P TT, PT, BMP, CDP ####[facility] [address] [place] [address] Lab Director: Declan Jacome MD#### MRSANO ####[facility] [place] [address] Lab Director: Bryan Rincon [facility] [address] [place], [place] [id number] lab Director: Declan Jacome MD Basic Metabolic Profon 12-23 Anion gap [Moles/Vol] 12 mmol/L Normal 9-17 [facility] Comment on above: Performed By: #### P TT, PT, BMP, CDP ####[facility] [address] [place] [address] Lab Director: Declan Jacome MD#### MRSANO ####[facility] [place] [address] Lab Director: [facility] [address]0436 [place] [address] Lab Director: Declan Jacome MD BUN/CRE Ratio 15 Normal 9-20 [facility] Comment on above: Performed By: #### P TT, PT, BMP, CDP ####[facility] [address] [place] [address] Lab Director: Declan Jacome MD#### MRSANO ####[address] [place] [address] Lab Director: [facility] [address] [place] [address] Lab Director: Declan Jacome MD Calcium [Mass/Vol] 9.8 mg/dL Normal 8.6-10.4 [facility] Comment on above: Performed By: #### P TT, PT, BMP, CDP ####[facility] [address] [place] [address] Lab Director: Declan Jacome MD#### MRSANO ####[facility] [place] [address] Lab Director: Bryan Rincon, [facility] [address] [place] [address] Lab Director: Declan Jacome MD Chloride [Moles/Vol] 102 mmol/L Normal 98-107 [facility] Comment on above: Performed By: #### P TT, PT, BMP, CDP ####[facility] [address] [place] [phone] Director: Declan Jacome MD#### MRSANO ####[facility] [address] [place] [address] Lab Director: Bryan Rincon, [facility] [address] [place], [place] [phone] Director: Declan Jacome MD CO2 [Moles/Vol] 24 mmol/L Normal 20-31 [facility] Comment on above: Performed By: #### P TT, PT, BMP, CDP ####[facility] [address] [place] [address] Lab Director: Declan Jacome MD#### MRSANO ####[facility] [place] [address] Lab Director: [facility] [address] [place], [place] [phone])[phone] Director: Declan Jacome MD Creatinine [Mass/Vol] 1.1 mg/dL Normal 0.7-1.2 [facility] Comment on above: Performed By: #### P TT, PT, BMP, CDP ####[facility] [address] [place] [address] Lab Director: Declan Jacome MD#### MRSANO ####[facility] [place] [address] Lab Director: Bryan Rincon, [facility] [address] [place], [place] [phone] Director: Declan Jacome MD GFR/1.73 sq M.predicted among non-blacks MDRD (S/P/Bld) [Vol rate/Area] 70 mL/min/{1.73_m2} Normal >60 [facility] Comment on above: Result Comment: These results are not intended for use in patients <18 years of age. eGFR results are calculated without a race factor using the 2020 CKD-EPI equation. Careful clinical correlation is recommended, particularly when comparing to results calculated using previous equations. The CKD-EPI equation is less accurate in patients with extremes of muscle mass, extra-renal metabolism of creatine, excessive creatine ingestion, or following therapy that affects renal tubular secretion. Performed By: #### P TT, PT, BMP, CDP ####[facility] [address] [place] [address] Lab Director: Declan Jacome MD#### MRSANO ####[facility] [address] [place] [address] Lab Director: [facility] [address] [place] [address] Lab Director: Declan Jacome MD Glucose [Mass/Vol] 97 mg/dL Normal 70-99 [facility] Comment on above: Performed By: #### P TT, PT, BMP, CDP ####[facility] [address] [place] [address] Lab Director: Declan Jacome MD#### MRSANO ####[facility] [place] [address] Lab Director: Bryan Rincon, [facility] [address] [place] [address] Lab Director: Declan Jacome MD Potassium [Moles/Vol] 4.5 mmol/L Normal 3.7-5.3 [facility] Comment on above: Performed By: #### P TT, PT, BMP, CDP ####[facility] [address] [place] [address] Lab Director: Declan Jacome MD#### MRSANO ####[facility] [place] [address] Lab Director: [facility] [address] [place] [address] Lab Director: Declan Jacome MD Sodium [Moles/Vol] 138 mmol/L Normal 135-144 [facility] Comment on above: Performed By: #### P TT, PT, BMP, CDP ####[facility] [address] [place] [address] Lab Director: Declan Jacome MD#### MRSANO ####[facility] [address] [place] [address] Lab Director: [facility] [address]ps3615 [place] [address] Lab Director: Declan Jacome MD Urea nitrogen [Mass/Vol] 16 mg/dL Normal 8-23 [facility] Comment on above: Performed By: #### P TT, PT, BMP, CDP ####[facility] [address] [place] [address] Lab Director: Declan Jacome MD#### MRSANO ####[facility] [address] [place] [address] Lab Director: [facility] [address]6020 [place] [address] Lab Director: Declan Jacome MD CBC with Diffon 12-24-2023 Abs. Basophil 0.04 k/uL Normal 0.00-0.20 [facility] Comment on above: Performed By: #### P TT, PT, BMP, CDP ####[facility] [address] [place] [address] Lab Director: Declan Jacome MD#### MRSANO ####[facility] [address] [place], [place] [phone] Director: [facility]conMcC[facility] [address] [place], [place] [phone] Director: Declan Jacome MD Abs.Imm.Granulocyte 0.04 k/uL Normal 0.00-0.30 [facility] Comment on above: Performed By: #### P TT, PT, BMP, CDP ####[facility] [address] [place], [place] [phone])[phone] Director: Declan Jacome MD#### MRSANO ####[address] [phone])[phone] Director: [facility]conMcC[facility] [address] [place], [place] [phone])[phone] Director: Declan Jacome MD Abs.Neutrophil (Seg) 8.29 k/uL High 2.1-6.5 [facility] Comment on above: Performed By: #### P TT, PT, BMP, CDP ####[facility] [address] [place] [address] Lab Director: Declan Jacome MD#### MRSANO ####[address] [id number])[phone] Director: Bryan [facility]conMcC[facility] [address] [place], [place] [address])[phone] Director: Declan Jacome MD Basophils/100 WBC (Bld) 0 % Normal 0-2 [facility] Comment on above: Performed By: #### P TT, PT, BMP, CDP ####[facility] [address] [place], [place] [phone] Director: Declan Jacome MD#### MRSANO ####[address] [place], [place] [phone])[phone] Director: Bryan Rincon, [facility] [address] [place], [place] [phone] Director: Declan Jacome MD Eosinophils (Bld) [#/Vol] 0.06 10*3/uL Normal 0.00-0.40 [facility] Comment on above: Performed By: #### P TT, PT, BMP, CDP ####[facility] Bjy2663 [place] [address] Lab Director: Declan Jacome MD#### MRSANO ####[facility] [place] [address] Lab Director: Bryan [facility] Vwh3200 [place] [address] Lab Director: Declan Jacome MD Eosinophils/100 WBC (Bld) 1 % Normal 0-5 [facility] Comment on above: Performed By: #### P TT, PT, BMP, CDP ####[facility] Dnj7475 [place] [address] Lab Director: Declan Jacome MD#### MRSANO ####[address] [place] [address] Lab Director: Bryan [facility] Exu4230 [place] [address] Lab Director: Declan Jacome MD Erythrocyte distribution width (RBC) [Ratio] 12.8 % Normal 12.1-15.2 [facility] Comment on above: Performed By: #### P TT, PT, BMP, CDP ####[facility] Pzl1877 [place], [place] [id number])[phone] Director: Declan Jacome MD#### MRSANO ####[facility] [place] [address] Lab Director: Bryan Rincon, [facility] Zou0709 [place], [place] [id number])[phone] Director: Declan Jacome MD Hematocrit (Bld) [Volume fraction] 43.1 % Normal 41.0-53.0 [facility] Comment on above: Performed By: #### P TT, PT, BMP, CDP ####[facility] Sfy5808 [place], [place] [id number])[phone] Director: Declan Jacome MD#### MRSANO ####[address] [place], [place] [id number])[phone] Director: Bryan [facility] [address] [place], [place] [address])[phone] Director: Declan Jacome MD Hemoglobin (Bld) [Mass/Vol] 14.9 g/dL Normal 13.5-17.5 [facility] Comment on above: Performed By: #### P TT, PT, BMP, CDP ####[facility] [address] [place], [place] [address])[phone] Director: Declan Jacome MD#### MRSANO ####[address] [place], [place] [id number])[phone] Director: Bryan [facility] Qvo5331 [place], [place] [address])[phone] Director: Declan Jacome MD Immature granulocytes/100 WBC (Bld) 0 % Normal 0-5 [facility] Comment on above: Performed By: #### P TT, PT, BMP, CDP ####[facility] Uck0757 [place], [place] [id number])[phone] Director: Declan Jacome MD#### MRSANO ####[facility] [place], [place] [id number])[phone] Director: Bryan Rincon, [facility] [address] [place], [place] [address])[phone] Director: Declan Jacome MD Lymphocytes (Bld) [#/Vol] 1.70 10*3/uL Normal 1.00-4.80 [facility] Comment on above: Performed By: #### P TT, PT, BMP, CDP ####[facility] Pcj4003 [place], [place] [id number])[phone] Director: Declan Jacome MD#### MRSANO ####[address] [place] [address] Lab Director: Bryan [facility] Mvi5358 [place], [place] [address])[phone] Director: Declan Jacome MD Lymphocytes/100 WBC (Bld) 15 % Normal 13-44 [facility] Comment on above: Performed By: #### P TT, PT, BMP, CDP ####[facility] Kcs6214 [place], [place] [id number])[phone] Director: Declan Jacome MD#### MRSANO ####[address] [place] [address] Lab Director: Bryan [facility] Mot1363 [place], [place] [address])[phone] Director: Declan Jacome MD MCH (RBC) [Entitic mass] 33.3 pg Normal 26.0-34.0 [facility] Comment on above: Performed By: #### P TT, PT, BMP, CDP ####[facility] Ere8629 [place], [place] [id number])[phone] Director: Declan Jacome MD#### MRSANO ####[facility] [place] [address] Lab Director: Bryan Rincon, [facility] Fms4968 [place], [place] [phone] Director: Declan Jacome MD MCHC (RBC) [Mass/Vol] 34.6 g/dL Normal 31.0-37.0 [facility] Comment on above: Performed By: #### P TT, PT, BMP, CDP ####[facility] Oyo1627 [place] [address] Lab Director: Declan Jacome MD#### MRSANO ####[address] [place] [address] Lab Director: Bryan [facility] Xwx1371 [place], [place] [id number])[phone] Director: Declan Jacome MD MCV (RBC) [Entitic vol] 96.4 fL Normal 80.0-100.0 [facility] Comment on above: Performed By: #### P TT, PT, BMP, CDP ####[facility] Zmi9827 [place] [address] Lab Director: Declan Jacome MD#### MRSANO ####[address] [place] [address] Lab Director: Bryan [facility] Cxt6366 [place], [place] [id number])[phone] Director: Declan Jacome MD Monocytes (Bld) [#/Vol] 0.96 10*3/uL Normal 0.00-1.00 [facility] Comment on above: Performed By: #### P TT, PT, BMP, CDP ####[facility] Bap2916 [place], [place] [id number])[phone] Director: Declan Jacome MD#### MRSANO ####[facility] F[address]axqvxofay8304 [place] [address] Lab Director: Bryan [facility] Crk0602 [place], [place] [id number])[phone] Director: Declan Jacome MD Monocytes/100 WBC (Bld) 9 % Normal 5-9 [facility] Comment on above: Performed By: #### P TT, PT, BMP, CDP ####[facility] Fza2047 [facility], [place] [id number])[phone] Director: Declan Jacome MD#### MRSANO ####[facility] [place], [place] 32790419)[phone] Director: Bryan [facility]ce[facility] Vqs6343 [place], [place] [id number])[phone] Director: Declan Jacome MD Neutrophil (Seg) 75 % Normal 39-75 [facility] Comment on above: Performed By: #### P TT, PT, BMP, CDP ####[facility] Zan7144 [facility], [place] 87547419)[phone] Director: Declan Jacome MD#### MRSANO ####[address] [place], [place] [id number])[phone] Director: Bryan Rincon, [facility] Aav1720 [facility], [place] [id number])[phone] Director: Declan Jacome MD Platelet mean volume (Bld) [Entitic vol] 8.6 fL Normal 6.0-12.0 [facility] Comment on above: Performed By: #### P TT, PT, BMP, CDP ####[facility] Zur[address]247 [place], [place] [phone] Director: Declan Jacome MD#### MRSANO ####[facility] [address]pj17[address] [place], [place] 84471419)[phone] Director: Bryan [facility] Vta6029 [place], [place] 57856419)[phone] Director: Declan Jacome MD Platelets (Bld) [#/Vol] 243 10*3/uL Normal 140-450 [facility] Comment on above: Performed By: #### P TT, PT, BMP, CDP ####[facility] Nfb[address]33 [address] [place], [place] [phone] Director: Declan Jacome MD#### MRSANO ####[facility] Zrej[address]pyfm9110 [place] [address] Lab Director: Bryan [facility] [address], [place] [phone] Director: Declan Jacome MD RBC (Bld) [#/Vol] 4.47 10*6/uL Low 4.50-5.90 [facility] Comment on above: Performed By: #### P TT, PT, BMP, CDP ####[facility] Kmz9225 [place] [address] Lab Director: Declan Jacome MD#### MRSANO ####[facility] Rpm[address]ueacrnq4685 [place], [place] 77843419)[phone] Director: Bryan Rincon, [facility] Wyu0872 [facility] [place] [phone] Director: Declan Jacome MD WBC (Bld) [#/Vol] 11.1 10*3/uL High 3.5-11.0 [facility] Comment on above: Performed By: #### P TT, PT, BMP, CDP ####[facility] Ybf3725 [place] [address] Lab Director: Declan Jacome MD#### MRSANO ####[facility] H[address]idcas3698 [place], [place] 19006419)[phone] Director: Bryan Rincon, [facility] Rwh2917 [place] [address] Lab Director: Declan Jacome MD MRSA, DNA, Nasalon 4 Specimen Description .NASAL SWAB Normal [facility] Comment on above: Performed By: #### P TT, PT, BMP, CDP ####[facility] Tla[address] [place] [address] Lab Director: Declan Jacome MD#### MRSANO ####[address] [place] [address] Lab Director: Bryan Rincon, [facility] Ilv3899 [place] [address] Lab Director: Declan Jacome MD PTon 12-24-2023 INR Coag (PPP) [Relative time] 1.0 {INR} Normal [facility] Comment on above: Result Comment: Therapeutic Range: Moderate Anticoagulant Intensity: INR = 2.0-3.0 High Anticoagulant Intensity: INR = 2.5-3.5 Performed By: #### P TT, PT, BMP, CDP ####[facility] Vpz4381 [place] [address] Lab Director: Declan Jacome MD#### MRSANO ####[address] [place] [address] Lab Director: Bryan [facility] [address]ow[address] [place] [place], [place] [phone])[phone] Director: Declan Jacome MD PT Coag (PPP) [Time] 12.8 s Normal 11.5-14.2 [facility] Comment on above: Performed By: #### P TT, PT, BMP, CDP ####[facility] Hhv5[address] [place], [place] [id number])[phone] Director: Declan Jacome MD#### MRSANO ####[address] [place] [address] Lab Director: Bryan Rincon, [facility] Zqx1293 [place] [address] Lab Director: Declan Jacome MD XR Chest 2 Viewson Radiology Study observation (narrative) [facility] XR HIP RIGHT (2-3 VIEWS)on 0 11-11-2023 XR HIP RIGHT (2-3 VIEWS) EXAM: XR HIP RIGHT (2-3 VIEWS) HISTORY: Acute right hip pain COMPARISON: None. IMPRESSION: FINDINGS/IMPRESSION: 1. Mild osteoarthritic change of both hips. 2. Femoral heads remain rounded. 3. No acute change or fracture. Interpreted by: Tony Awad Jr., MD Signed by: Tony Awad Jr., MD 11/11/23 Final result Normal [facility] XR Hip - right 2 Viewson FINDINGS/IMPRESSION: 1. Mild osteoarthritic change of both hips. 2. Femoral heads remain rounded. 3. No acute change or fracture. [facility] RIS CONSOLIDATED EXAM: XR HIP RIGHT (2-3 VIEWS) HISTORY: Acute right hip pain COMPARISON: None. [facility] RIS CONSOLIDATED Tony Awad Jr., MD - 11/11/2023 EXAM: XR HIP RIGHT (2-3 VIEWS) HISTORY: Acute right hip pain COMPARISON: None. IMPRESSION: FINDINGS/IMPRESSION: 1. Mild osteoarthritic change of both hips. 2. Femoral heads remain rounded. 3. No acute change or fracture. [facility] Radiology Study observation (narrative) [facility] XR Hip - right 2 ViewsOrdere d By: Tony Awad on 11-11-2023 [facility] Work Phone: Surgical Pathology Reporton 06-16-2023 Surgical Pathology Report (NOTE) Path Number: [id number] -- Diagnosis -- A. Colon, ascending, colonoscopic polypectomy: Fragments of adenomatous polyp. B. Colon, hepatic flexure, colonoscopic polypectomy: Fragments of adenomatous polyp. C. Colon, transverse, colonoscopic polypectomy: Fragments of adenomatous polyp. D. Colon, sigmoid, colonoscopic polypectomy: Fragments of adenomatous polyp. Elisha Angel. Electronically Signed Out 06/17/2023 Clinical Information Pre-op Diagnosis: COLON CANCER SCREENING Operative Findings: ASCENDING COLON POLYP; HEPATIC FLEXURE POLYP; TRANSVERSE COLON POLYP; SIGMOID POLYP Operation Performed: COLONOSCOPY tm Source of Specimen A: ASCENDING COLON POLYP 1 B: HEPATIC FLEXURE POLYP 1 C: TRANSVERSE COLON POLYP 1 D: SIGMOID POLYP 1 Gross Description A. ELIZABETH REIS ASCENDING COLON POLYP Received in formalin are multiple valentino-white tissue fragments, 1.8 x 1.5 x 0.3 cm in aggregate. Entirely 1cs. B. ELIZABETH REIS HEPATIC FLEXURE POLYP Received in formalin are two valentino-white tissue fragments from 0.2 to 0.3 cm and are 0.5 x 0.2 x 0.1 cm in aggregate. Entirely 1cs. C. ELIZABETH REIS TRANSVERSE COLON POLYP Received in formalin are multiple valentino-white tissue fragments, 2.5 x 2.0 x 0.4 cm in aggregate. Entirely 1cs. D. ELIZABETH REIS SIGMOID POLYP Received in formalin are two valentino-white tissue fragments each 0.6 cm and are 1.2 x 0.4 x 0.3 cm in aggregate. Entirely 1cs. ds tm Mg Archibald M.D./tb1:06/17/2023 Microscopic Description A-D. 2 ALEXY reviewed for each. Microscopic examination performed. Processing Lab: [address] [address] Interpretation Performed at [address] [id number] SURGICAL PATHOLOGY CONSULTATION Patient Name: ELIZABETH REIS [facility] Rec: [id number] [facility] ANATOMIC PATHOLOGY [address] [place] [address]. [place] [address] Normal [facility] BUN & Creatinineon 4 Creatinine [Mass/Vol] 1.1 mg/dL 0.7 - 1.2 mg/dL [facility] KTM Advance GFR/1.73 sq M.predicted MDRD (S/P/Bld) [Vol rate/Area] - PINF [facility] Comment on above: These results are not intended for use in patients <18 years of age. eGFR results are calculated without a race factor using the 2020 CKD-EPI equation. Careful clinical correlation is recommended, particularly when comparing to results calculated using previous equations. The CKD-EPI equation is less accurate in patients with extremes of muscle mass, extra-renal metabolism of creatine, excessive creatine ingestion, or following therapy that affects renal tubular secretion. Urea nitrogen [Mass/Vol] 16 mg/dL 8 - 23 mg/dL [facility] BUN + Creatinineon Creatinine [Mass/Vol] 1.1 mg/dL Normal 0.7-1.2 [facility] Comment on above: Performed By: #### B UNCRT ####[facility] Dat[address] [place] [address] lab Director: Declan Jacome MD GFR/1.73 sq M.predicted among non-blacks MDRD (S/P/Bld) [Vol rate/Area] mL/min/{1.73_m2} Normal >60 [facility] Comment on above: Result Comment: These results are not intended for use in patients <18 years of age. eGFR results are calculated without a race factor using the 2020 CKD-EPI equation. Careful clinical correlation is recommended, particularly when comparing to results calculated using previous equations. The CKD-EPI equation is less accurate in patients with extremes of muscle mass, extra-renal metabolism of creatine, excessive creatine ingestion, or following therapy that affects renal tubular secretion. Performed By: #### B UNCRT ####[facility] Yat0895 [place] [address] lab Director: Declan Jacome MD Urea nitrogen [Mass/Vol] 16 mg/dL Normal 8-23 [facility] Comment on above: Performed By: #### B UNCRT ####[facility] Etk0595 [place] [address] lab Director: Declan Jacome MD MR Lumbar spine WO and W con trast Gwendolyn 06-10-2023 1. Interval improvement in previously noted spinal canal stenosis at L4-L5. 2. Moderate spinal canal stenosis at L1-L2 and L2-L3. 3. Moderate foraminal stenosis at L3-L4 and L5-S1 with moderate left and severe right foraminal stenosis at L4-L5. 4. Mild spinal canal stenosis with severe left subarticular recess stenosis at L3-L4. [facility] RIS CONSOLIDATED EXAM: MRI LUMBAR SPINE W WO CONTRAST HISTORY: Balance disorder COMPARISON: MRI of the lumbar spine from 11/17/2019 TECHNIQUE: Multiplanar multisequence MRI was obtained through the lumbar spine without and following administration of IV contrast FINDINGS: For discussion purposes the cephalad most axial T2 weighted image defines the T12 vertebral level. Osseous: The vertebral body heights are maintained. No fracture. Previous laminectomy at L4. Conus medullaris/cauda equina: The conus medullaris terminates at the L1-L2 disc level. No abnormal signal is demonstrated within the distal aspect of the spinal cord. No abnormal enhancement. Soft tissues: The abdominal aorta is normal in caliber. No retroperitoneal lymphadenopathy. Several renal cysts largest at the left upper pole measuring 2.5 cm. Disc levels: T12-L1: No disc protrusion, spinal canal stenosis, or neural foraminal stenosis. Mild facet arthrosis. L1-L2: Moderate bilateral facet arthrosis with ligamentous thickening. Mild circumferential disc bulge. Moderate spinal canal stenosis. Neural foramina are patent. L2-L3: Moderate bilateral facet arthrosis. Ligamentous thickening. Circumferential disc bulge. Moderate spinal canal stenosis. Mild left greater than right foraminal stenosis inferiorly. L3-L4: Severe left and moderate right facet arthrosis. Ligamentous thickening. Circumferential disc bulge. Left facet arthrosis contributes to mild overall spinal canal stenosis and severe left subarticular recess stenosis. Moderate right and moderate left foraminal stenosis. L4-L5: Circumferential disc bulge. Moderate bilateral facet arthrosis. Moderate left and severe right foraminal stenosis. Dorsal decompression of the spinal canal. L5-S1: Severe left and moderate right facet arthrosis. Moderate bilateral foraminal stenosis. [facility] RIS CONSOLIDATED Dewey Ervin MD - 06/10/2023 EXAM: MRI LUMBAR SPINE W WO CONTRAST HISTORY: Balance disorder COMPARISON: MRI of the lumbar spine from 11/17/2019 TECHNIQUE: Multiplanar multisequence MRI was obtained through the lumbar spine without and following administration of IV contrast FINDINGS: For discussion purposes the cephalad most axial T2 weighted image defines the T12 vertebral level. Osseous: The vertebral body heights are maintained. No fracture. Previous laminectomy at L4. Conus medullaris/cauda equina: The conus medullaris terminates at the L1-L2 disc level. No abnormal signal is demonstrated within the distal aspect of the spinal cord. No abnormal enhancement. Soft tissues: The abdominal aorta is normal in caliber. No retroperitoneal lymphadenopathy. Several renal cysts largest at the left upper pole measuring 2.5 cm. Disc levels: T12-L1: No disc protrusion, spinal canal stenosis, or neural foraminal stenosis. Mild facet arthrosis. L1-L2: Moderate bilateral facet arthrosis with ligamentous thickening. Mild circumferential disc bulge. Moderate spinal canal stenosis. Neural foramina are patent. L2-L3: Moderate bilateral facet arthrosis. Ligamentous thickening. Circumferential disc bulge. Moderate spinal canal stenosis. Mild left greater than right foraminal stenosis inferiorly. L3-L4: Severe left and moderate right facet arthrosis. Ligamentous thickening. Circumferential disc bulge. Left facet arthrosis contributes to mild overall spinal canal stenosis and severe left subarticular recess stenosis. Moderate right and moderate left foraminal stenosis. L4-L5: Circumferential disc bulge. Moderate bilateral facet arthrosis. Moderate left and severe right foraminal stenosis. Dorsal decompression of the spinal canal. L5-S1: Severe left and moderate right facet arthrosis. Moderate bilateral foraminal stenosis. IMPRESSION: 1. Interval improvement in previously noted spinal canal stenosis at L4-L5. 2. Moderate spinal canal stenosis at L1-L2 and L2-L3. 3. Moderate foraminal stenosis at L3-L4 and L5-S1 with moderate left and severe right foraminal stenosis at L4-L5. 4. Mild spinal canal stenosis with severe left subarticular recess stenosis at L3-L4. [facility] Radiology Study observation (narrative) [facility] MR Lumbar spine WO and W con trast IVOrdered By: Dewey Ervin on 06-10-2023 [facility] Work Phone: [facility] MRI CERVICAL SPINE W WO CONTRAST EXAM: MRI CERVICAL SPINE W WO CONTRAST HISTORY: Balance disorder COMPARISON: CT cervical spine from 11/20/2013. MRI of the cervical spine from 11/21/2013 TECHNIQUE: Multiplanar multisequence MRI was obtained through the cervical spine without contrast. FINDINGS: Examination is degraded by motion artifact. Osseous: The vertebral body heights are maintained. No fracture. No bone marrow edema. Degenerative changes about the dens and C1. Large osteophytes throughout the cervical spine. Cervical spinal cord: There is increased signal within the substance of the cervical spinal cord at the C4-C5 level without associated enhancement. This correlates to the site of abnormal increased signal within the spinal cord on the comparison 2014 MRI. Soft tissues/ligaments: The ligaments appear intact. The prevertebral soft tissues and posterior paraspinal musculature are normal in signal intensity. 0.8 cm nodule at the left thyroid lobe. Disc levels: C2-C3: Broad-based posterior disc bulge with associated annular fissure. Mild spinal canal stenosis. Neural foramina are patent. C3-C4: Broad-based posterior disc bulge/osteophyte complex. Mild spinal canal stenosis. Mild bilateral foraminal stenosis. C4-C5: Broad-based posterior disc bulge/osteophyte complex. There is contact and contouring of the ventral aspect of spinal cord. Moderate spinal canal stenosis. Increased signal within the substance of the spinal cord at this level. Moderate right and mild left neural foraminal stenosis. Left facet arthrosis. C5-C6: Broad-based posterior disc bulge. Mild spinal canal stenosis. Right facet arthrosis. Moderate bilateral foraminal stenosis. C6-C7: Disc height loss. Broad-based posterior disc bulge. Mild spinal canal stenosis. Mild bilateral foraminal stenosis. C7-T1: No disc protrusion, spinal canal stenosis, or neural foraminal stenosis. IMPRESSION: 1. 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 2. Degenerative changes of the cervical spine most notably at C4-C5 there is moderate spinal canal and foraminal stenosis. 3. Mild spinal canal stenosis and moderate foraminal stenosis C5-C6. Interpreted by: Dewey Ervin MD Signed by: Dewey Ervin MD 06/10/23 Final result Normal [facility] MRI LUMBAR SPINE W WO CONTRA STon 06-10-2023 MRI LUMBAR SPINE W WO CONTRAST EXAM: MRI LUMBAR SPINE W WO CONTRAST HISTORY: Balance disorder COMPARISON: MRI of the lumbar spine from 11/17/2019 TECHNIQUE: Multiplanar multisequence MRI was obtained through the lumbar spine without and following administration of IV contrast FINDINGS: For discussion purposes the cephalad most axial T2 weighted image defines the T12 vertebral level. Osseous: The vertebral body heights are maintained. No fracture. Previous laminectomy at L4. Conus medullaris/cauda equina: The conus medullaris terminates at the L1-L2 disc level. No abnormal signal is demonstrated within the distal aspect of the spinal cord. No abnormal enhancement. Soft tissues: The abdominal aorta is normal in caliber. No retroperitoneal lymphadenopathy. Several renal cysts largest at the left upper pole measuring 2.5 cm. Disc levels: T12-L1: No disc protrusion, spinal canal stenosis, or neural foraminal stenosis. Mild facet arthrosis. L1-L2: Moderate bilateral facet arthrosis with ligamentous thickening. Mild circumferential disc bulge. Moderate spinal canal stenosis. Neural foramina are patent. L2-L3: Moderate bilateral facet arthrosis. Ligamentous thickening. Circumferential disc bulge. Moderate spinal canal stenosis. Mild left greater than right foraminal stenosis inferiorly. L3-L4: Severe left and moderate right facet arthrosis. Ligamentous thickening. Circumferential disc bulge. Left facet arthrosis contributes to mild overall spinal canal stenosis and severe left subarticular recess stenosis. Moderate right and moderate left foraminal stenosis. L4-L5: Circumferential disc bulge. Moderate bilateral facet arthrosis. Moderate left and severe right foraminal stenosis. Dorsal decompression of the spinal canal. L5-S1: Severe left and moderate right facet arthrosis. Moderate bilateral foraminal stenosis. IMPRESSION: 1. Interval improvement in previously noted spinal canal stenosis at L4-L5. 2. Moderate spinal canal stenosis at L1-L2 and L2-L3. 3. Moderate foraminal stenosis at L3-L4 and L5-S1 with moderate left and severe right foraminal stenosis at L4-L5. 4. Mild spinal canal stenosis with severe left subarticular recess stenosis at L3-L4. Interpreted by: Dewey Ervin MD Signed by: Dewey Ervin MD 06/10/23 Final result Normal [facility] Prot. Electroph, Blon 2023 Pathologist Review: Reviewed by pathologist: Lynda Spears M.D. Normal [facility] Comment on above: Performed By: #### T SH, CK #### [facility] [address] [place] [address] Estate Manager: Declan Jacome MD #### [id number], PE #### [facility] [place] [address] Estate Manager: Bryan Rincon MD Prot. Elect-Interp NORMAL ELECTROPHORETIC PATTERN Normal [facility] Comment on above: Performed By: #### T SH, CK #### [facility] [address] [place], [place] [phone] Estate Manager: Declan Jacome MD #### B12FOL, PE #### [facility] [address] [place], [place] [phone] Estate Manager: Bryan Rincon MD B12/Folate Panelon Cobalamin (Vitamin B12) [Mass/Vol] 736 pg/mL Normal 232-1245 [facility] Comment on above: Performed By: #### T SH, CK #### [facility] [address] [place], [place] [phone] Estate Manager: Declan Jacome MD #### B12FOL, PE #### [address] [phone] Estate Manager: Bryan Rincon MD Folic Acid 13.8 ng/mL Normal 4.8-24.2 [facility] Comment on above: Performed By: #### T SH, CK #### [facility] [address] [place] [address] Estate Manager: Declan Jacome MD #### B12FOL, PE #### [address] [phone] Estate Manager: Bryan Rincon MD Prot. Electroph, Blon 1549 Albumin [Mass/Vol] 4.6 g/dL Normal 3.2-5.2 [facility] Comment on above: Performed By: #### T SH, CK #### [facility] [address] [place] [address] Estate Manager: Declan Jacome MD #### B12FOL, PE #### [place] [address] [place], [place] [phone] Estate Manager: Bryan Rincon MD Albumin, % 69 % High 45-65 [facility] Comment on above: Performed By: #### T SH, CK #### [facility] [address] [place], [place] [phone] Estate Manager: Declan Jacome MD #### B12FOL, PE #### [facility] [address] [place], [place] [phone] Estate Manager: Bryan Rincon MD Obeyl-3-fbwxxqbtr 0.2 g/dL Normal 0.1-0.4 [facility] Comment on above: Performed By: #### T SH, CK #### [facility] [address] [place], [place] [phone] Estate Manager: Declan Jacome MD #### B12FOL, PE #### [address] [phone] Estate Manager: Bryan Rincon MD Ipoel-1-ofjqtezme,% 2 % Low 3-6 [facility] Comment on above: Performed By: #### T SH, CK #### [facility] [address] [place], [place] [phone] Estate Manager: Declan Jacome MD #### B12FOL, PE #### [facility] [address] [place] [address] Estate Manager: Bryan Rincon MD Vucvm-9-boayigjzu 0.7 g/dL Normal 0.5-0.9 [facility] Comment on above: Performed By: #### T SH, CK #### [facility] [address] [place], [place] [phone] Estate Manager: Declan Jacome MD #### B12FOL, PE #### [facility] [address] [place] [address] Estate Manager: Bryan Rincon MD Pzvav-2-lqsecydlx,% 11 % Normal 6-13 [facility] Comment on above: Performed By: #### T SH, CK #### [facility] [address] [place], [place] [phone] Estate Manager: Declan Jacome MD #### B12FOL, PE #### [facility] [address] [place] [address] Estate Manager: Bryan Rincon MD Beta-globulins 0.6 g/dL Normal 0.5-1.1 [facility] Comment on above: Performed By: #### T SH, CK #### [facility] [address] [place], [place] [phone] Estate Manager: Declan Jacome MD #### B12FOL, PE #### [facility] [address] [place] [phone] Estate Manager: Bryan Rincon MD Beta-globulins,% 10 % Low 11-19 [facility] Comment on above: Performed By: #### T SH, CK #### [facility] [address] [place] [address] Estate Manager: Declan Jacome MD #### B12FOL, PE #### [facility] [address] [place] [address] Estate Manager: Bryan Rincon MD Gamma-globulins 0.6 g/dL Normal 0.5-1.5 [facility] Comment on above: Performed By: #### T SH, CK #### [facility] [address] [place] [address] Estate Manager: Declan Jacome MD #### B12FOL, PE #### [facility] [address] [place] [address] Estate Manager: Bryan Rincon MD Gamma-globulins,% 8 % Low 9-20 [facility] Comment on above: Performed By: #### T SH, CK #### [facility] [address] [place], [place] [phone] Estate Manager: Declan Jacome MD #### B12FOL, PE #### [place] [address] [place], [place] [phone] Estate Manager: Bryan Rincon MD Total Prot. Sum 6.7 g/dL Normal 6.3-8.2 [facility] Comment on above: Performed By: #### T SH, CK #### [facility] [address] [place], [place] [phone] Estate Manager: Declan Jacome MD #### B12FOL, PE #### [address] [phone] Estate Manager: Bryan Rincon MD Total Prot. Sum,% 100 % Normal 98-102 [facility] Comment on above: Performed By: #### T SH, CK #### [facility] [address] [place], [place] [phone] Estate Manager: Declan Jacome MD #### B12FOL, PE #### [address] [phone] Estate Manager: Bryan Rincon MD Protein [Mass/Vol] 6.6 g/dL Normal 6.6-8.7 [facility] Comment on above: Performed By: #### T SH, CK #### [facility] [address] [place], [place] [phone] Estate Manager: Declan Jacome MD #### B12FOL, PE #### [address] [address] Estate Manager: Bryan Rincon MD Creatine Kinaseon 06-02-2023 CK [Catalytic activity/Vol] 80 U/L Normal 39-308 [facility] Comment on above: Performed By: #### T SH, CK #### [facility] [address] [place] [address] Estate Manager: Declan Jacome MD #### B12YEHUDA, PE #### [facility] [employer] [address] [place], [place] [phone] Estate Manager: Bryan Rincon MD Thyroid Stim. Horm.on 2023 Thyroid Stim. Horm. 1.20 uIU/mL Normal 0.30-5.00 [facility] Comment on above: Performed By: #### T MARCELLA CK #### [facility] [address] [place] [address] Estate Manager: Declan Jacome MD #### B12FOTia, PE #### [facility] [employer] [address] [place] [address] Estate Manager: Bryan Rincon MD No Panel Informationon 05-22 [facility] MRI BRAIN WO CONTRASTon 04-13 MRI BRAIN WO CONTRAST EXAM: MRI BRAIN WO CONTRAST HISTORY: Balance problem COMPARISON: None. TECHNIQUE: Multiplanar, multisequence imaging of the brain without contrast FINDINGS: No acute ischemia. No acute intracranial hemorrhage. Midline structures and the craniocervical junction is within limits of normal. The ventricles and sulci are of normal size, shape and position. There is an arachnoid cyst within the right middle cranial fossa measuring 4.1 x 2 cm. There is underlying age-related change/small vessel ischemic disease. IMPRESSION: No acute intracranial abnormality. Indeterminate Interpreted by: Renee Lomeli DO Signed by: Renee Lomeli DO 04/28/23 Final result Normal [facility] CBC with Diffon 04-20-2023 Abs. Basophil 0.05 k/uL Normal 0.00-0.20 [facility] Comment on above: Performed By: #### T ZOË LINDSEY, CP ####[facility] [address] [place] [address] Lab Director: Declan Jacome MD Abs.Imm.Granulocyte 0.02 k/uL Normal 0.00-0.30 [facility] Comment on above: Performed By: #### T ZOË LINDSEY, CP ####[facility] [address] [place] [address] Lab Director: Declan Jacome MD Abs.Neutrophil (Seg) 6.62 k/uL High 2.1-6.5 [facility] Comment on above: Performed By: #### ZOË ELIZALDE, CP ####[facility] Tcq[address] [facility], [place] [address] Lab Director: Declan Jacome MD Basophils/100 WBC (Bld) 1 % Normal 0-2 [facility] Comment on above: Performed By: #### ZOË ELIZALDE, CP ####[facility] Spv8428 [place] [address] Lab Director: Declan Jacome MD Eosinophils (Bld) [#/Vol] 0.05 10*3/uL Normal 0.00-0.40 [facility] Comment on above: Performed By: #### ZOË ELIZALDE, CP ####[facility] Tlu26[address] [facility], [facility] Lab Director: Declan Jacome MD Eosinophils/100 WBC (Bld) 1 % Normal 0-5 [facility] Comment on above: Performed By: #### ZOË ELIZALDE, CP ####[facility] Det[address] [place], [place] [address])[phone] Director: Declan Jacome MD Erythrocyte distribution width (RBC) [Ratio] 12.3 % Normal 12.1-15.2 [facility] Comment on above: Performed By: #### ZOË ELIZALDE, CP ####[facility] Wji9811 [place] [address] Lab Director: Declan Jacome MD Hematocrit (Bld) [Volume fraction] 45.3 % Normal 41.0-53.0 [facility] Comment on above: Performed By: #### ZOË ELIZALDE, CP ####[facility] [address] [place] [address] Lab Director: Declan Jacome MD Hemoglobin (Bld) [Mass/Vol] 15.6 g/dL Normal 13.5-17.5 [facility] Comment on above: Performed By: #### ZOË ELIZALDE, CP ####[facility] [address] [place] [address] Lab Director: Declan Jacome MD Immature granulocytes/100 WBC (Bld) 0 % Normal 0-5 [facility] Comment on above: Performed By: #### ZOË ELIZALDE, CP ####[facility] Sqf1220 [facility] [place] [address] Lab Director: Declan Jacome MD Lymphocytes (Bld) [#/Vol] 1.57 10*3/uL Normal 1.00-4.80 [facility] Comment on above: Performed By: #### ZOË ELIZALDE, CP ####[facility] Bcy[address] [place] [address] Lab Director: Declan Jacome MD Lymphocytes/100 WBC (Bld) 17 % Normal 13-44 [facility] Comment on above: Performed By: #### ZOË ELIZALDE, CP ####[facility] [address] [place] [address] Lab Director: Declan Jacome MD MCH (RBC) [Entitic mass] 32.2 pg Normal 26.0-34.0 [facility] Comment on above: Performed By: #### ZOË ELIZALDE, CP ####[facility] [address] [place] [address] Lab Director: Declan Jacome MD MCHC (RBC) [Mass/Vol] 34.4 g/dL Normal 31.0-37.0 [facility] Comment on above: Performed By: #### T ZOË LINDSEY, CP ####[facility] Cvf[address] [place] [address] Lab Director: Declan Jacome MD MCV (RBC) [Entitic vol] 93.6 fL Normal 80.0-100.0 [facility] Comment on above: Performed By: #### T ZOË LINDSEY, CP ####[facility] P[address] [place] [address] Lab Director: Declan Jacome MD Monocytes (Bld) [#/Vol] 0.88 10*3/uL Normal 0.00-1.00 [facility] Comment on above: Performed By: #### ZOË ELIZALDE, CP ####[facility] Qsf1970 [facility] [place] [address] Lab Director: Declan Jacome MD Monocytes/100 WBC (Bld) 10 % High 5-9 [facility] Comment on above: Performed By: #### T ZOË LINDSEY, CP ####[facility] Hru9011 [place] [address] Lab Director: Declan Jacome MD Neutrophil (Seg) 71 % Normal 39-75 [facility] Comment on above: Performed By: #### ZOË ELIZALDE, CP ####[facility] Anw8344 [facility] [place] [address] Lab Director: Declan Jacome MD Platelet mean volume (Bld) [Entitic vol] 8.7 fL Normal 6.0-12.0 [facility] Comment on above: Performed By: #### ZOË ELIZALDE, CP ####[facility] Qjo[address] [place] [address] Lab Director: Declan Jacome MD Platelets (Bld) [#/Vol] 251 10*3/uL Normal 140-450 [facility] Comment on above: Performed By: #### T ZOË LINDSEY, CP ####[facility] [address] [place], [place] [id number] Director: Declan Jacome MD RBC (Bld) [#/Vol] 4.84 10*6/uL Normal 4.50-5.90 [facility] Comment on above: Performed By: #### T ZOË LINDSEY, CP ####[facility] Txz[address] [place], [place] [id number] Director: Declan Jacome MD WBC (Bld) [#/Vol] 9.2 10*3/uL Normal 3.5-11.0 [facility] Comment on above: Performed By: #### T ZOË LINDSEY, CP ####[facility] Vpb[address] [place] [address] Lab Director: Declan Jacome MD Comp Metabolic Profon 2023 Albumin [Mass/Vol] 4.4 g/dL Normal 3.5-5.2 [facility] Comment on above: Performed By: #### ZOË ELIZALDE, CP ####[facility] [address] [place], [place] [phone] Director: Declan Jacome MD Alkaline Phos 75 U/L Normal 40-129 [facility] Comment on above: Performed By: #### T ZOË LINDSEY, CP ####[facility] [address] [place], [place] [phone] Director: Declan Jacome MD ALT [Catalytic activity/Vol] 11 U/L Normal 5-41 [facility] Comment on above: Performed By: #### T ZOË LINDSEY, CP ####[facility] F[address] [place], [place] [phone] Director: Declan Jacome MD Anion gap [Moles/Vol] 11 mmol/L Normal 9-17 [facility] Comment on above: Performed By: #### T ZOË LINDSEY, CP ####[facility] [address] [place] [address] lab Director: Declan Jacome MD AST [Catalytic activity/Vol] 12 U/L Normal <40 [facility] Comment on above: Performed By: #### T ZOË LINDSEY, CP ####[facility] Zie[address] [place] [address] lab Director: Declan Jacome MD Bilirubin [Mass/Vol] 0.4 mg/dL Normal 0.3-1.2 [facility] Comment on above: Performed By: #### T ZOË LINDSEY, CP ####[facility] Iem[address] [place] [address] lab Director: Declan Jacome MD BUN/CRE Ratio 16 Normal 9-20 [facility] Comment on above: Performed By: #### T ZOË LINDSEY, CP ####[facility] Tlu[address] [place] [address] lab Director: Declan Jacome MD Calcium [Mass/Vol] 9.7 mg/dL Normal 8.6-10.4 [facility] Comment on above: Performed By: #### T ZOË LINDSEY, CP ####[facility] Tny[address]361 [place] [address] lab Director: Declan Jacome MD Chloride [Moles/Vol] 102 mmol/L Normal 98-107 [facility] Comment on above: Performed By: #### T ZOË LINDSEY, CP ####[facility] Fbj4592 [place] [address] lab Director: Declan Jacome MD CO2 [Moles/Vol] 22 mmol/L Normal 20-31 [facility] Comment on above: Performed By: #### T ZOË LINDSEY, CP ####[facility] Phn[address] [place] [address] lab Director: Declan Jacome MD Creatinine [Mass/Vol] 1.1 mg/dL Normal 0.7-1.2 [facility] Comment on above: Performed By: #### T ZOË LINDSEY, CP ####[facility] Zif[address] [place] [address] lab Director: Declan Jacome MD GFR/1.73 sq M.predicted among non-blacks MDRD (S/P/Bld) [Vol rate/Area] mL/min/{1.73_m2} Normal >60 [facility] Comment on above: Result Comment: These results are not intended for use in patients <18 years of age. eGFR results are calculated without a race factor using the 2020 CKD-EPI equation. Careful clinical correlation is recommended, particularly when comparing to results calculated using previous equations. The CKD-EPI equation is less accurate in patients with extremes of muscle mass, extra-renal metabolism of creatine, excessive creatine ingestion, or following therapy that affects renal tubular secretion. Performed By: #### T ZOË LINDSEY, CP ####[facility] Xbx[address] [place] [address] lab Director: Declan Jacome MD Glucose [Mass/Vol] 102 mg/dL High 70-99 [facility] Comment on above: Performed By: #### T ZOË LINDSEY, CP ####[facility] Ibe[address] [place] [address] lab Director: Declan Jacome MD Potassium [Moles/Vol] 4.4 mmol/L Normal 3.7-5.3 [facility] Comment on above: Performed By: #### T ZOË LINDSEY, CP ####[facility] Sfq16[address] [place] [address] lab Director: Declan Jacome MD Protein [Mass/Vol] 7.1 g/dL Normal 6.4-8.3 [facility] Comment on above: Performed By: #### ZOË ELIZALDE, CP ####[facility] Fok[address] [place], [place] 9953490 lab Director: Declan Jacome MD Sodium [Moles/Vol] 135 mmol/L Normal 135-144 [facility] Comment on above: Performed By: #### ZOË ELIZALDE, CP ####[facility] Art[address] [place], [place] 0809[address] lab Director: Declan Jacome MD Urea nitrogen [Mass/Vol] 18 mg/dL Normal 8-23 [facility] Comment on above: Performed By: #### ZOË ELIZALDE, CP ####[facility] Epf7172 [place], [place] [phone] lab Director: Declan Jacome MD TSH w/reflex to FT4on 2023 Thyroid Stim. Horm. 1.04 uIU/mL Normal 0.30-5.00 [facility] Comment on above: Performed By: #### ZOË ELIZALDE, CP ####[facility] Zkr3242 [place], [place] [phone] lab Director: Dcelan Jacome MD NM Cardiac Stress Test Nucle in Imagingon 02-03-2022 Radiology exam is complete. No Radiologist dictation. Please follow up with ordering provider. MHPN RIS CONSOLIDATED Comprehensive Metabolic Pane jose 10-25-2021 Albumin [Mass/Vol] 4.6 g/dL 3.5 - 5.2 g/dL [facility] ALP (Bld) [Catalytic activity/Vol] 65 U/L 40 - 129 U/L [facility] ALT [Catalytic activity/Vol] 19 U/L 5 - 41 U/L [facility] Anion gap [Moles/Vol] 10 mmol/L 9 - 17 mmol/L [facility] AST [Catalytic activity/Vol] 16 U/L NINF - 40 U/L [facility] Bilirubin [Mass/Vol] 0.46 mg/dL 0.3 - 1 .2 mg/dL [facility] Calcium [Mass/Vol] 10.0 mg/dL 8.6 - 10. 4 mg/dL [facility] Chloride [Moles/Vol] 97 mmol/L Low 98 - 10 7 mmol/L [facility] CO2 [Moles/Vol] 28 mmol/L 20 - 31 mmol/L [facility] Creatinine [Mass/Vol] 1.15 mg/dL 0.7 - 1.2 mg/dL [facility] Free PSA/Total PSA [Mass fraction] 7.2 g/dL 6.4 - 8.3 g/dL [facility] GFR >60 60 - PI NF mL/min [facility] GFR Non- >60 60 - PINF mL/min [facility] [employer] GFR/1.73 sq M.predicted MDRD (S/P/Bld) [Vol rate/Area] [facility] Comment on above: Average GFR for 70 o r more years old: 75 mL/min/1.73sq m Chronic Kidney Disease: <60 mL/min/1.73sq m Kidney failure: <15 mL/min/1.73sq m eGFR calculated using average adult body mass. Additional eGFR calculator available at: http://www.Zmqnw.com.cn/multiple_crcl_2012.htm Glucose [Mass/Vol] 104 mg/dL High 70 - 99 mg/dL [facility] Interpretation and review of laboratory results Abnormal [facility] Potassium [Moles/Vol] 4.8 mmol/L 3.7 - 5.3 mmol/L [facility] Sodium [Moles/Vol] 135 mmol/L 135 - 144 mmol/L [facility] Urea nitrogen (BldV) [Mass/Vol] 19 mg/dL 8 - 23 mg/dL [facility] Urea nitrogen/Creatinine (Bld) [Mass ratio] 17 9 - 20 [facility] Lipid Panelon 10-25-2021 Cholesterol [Mass/Vol] 145 mg/dL NINF - 200 mg/dL [facility] [employer] Comment on above: Cholesterol Guidelines: <200 Desirable 200-240 Borderline >240 Undesirable Cholesterol in HDL [Mass/Vol] 54 mg/dL 40 - PINF mg/dL [facility] Comment on above: HDL Guidelines: <40 Undesirable 40-59 Borderline >59 Desirable Cholesterol in LDL [Mass/Vol] 74 mg/dL 0 - 130 mg/dL [facility] Comment on above: LDL Guidelines: <100 Desirable 100-129 Near to/above Desirable 130-159 Borderline >159 Undesirable Direct (measured) LDL and calculated LDL are not interchangeable tests. Cholesterol.total/Chol esterol in HDL [Mass ratio] 2.7 {ratio} NINF - 5 [facility] Triglyceride [Mass/Vol] 86 mg/dL NINF - 150 mg/dL [facility] Comment on above: Triglyceride Guidelines: <150 Desirable 150-199 Borderline 200-499 High >499 Very high Based on AHA Guidelines for fasting triglyceride, January 2012. [facility] No Panel Informationon 10-25 [facility] Patient Fasting?on Patient Fasting? YES [facility] [employer] TSH with Reflexon 10-25-2021 TSH Qn 0.98 m[IU]/L [facility] Lipid PanelOrdered By: Tereso Orozco on 02-14-2021 Cholesterol [Mass/Vol] 128 mg/dL <200 [facility] Phone: Comment on above: Cholesterol Guidelines: <200 Desirable 200-240 Borderline >240 Undesirable Cholesterol in HDL [Mass/Vol] 51 mg/dL >40 [email or web address] Phone: Comment on above: HDL Guidelines: <40 Undesirable 40-59 Borderline >59 Desirable Cholesterol in LDL [Mass/Vol] 63 mg/dL 0 - 130 mg/dL [email or web address] Phone: Comment on above: LDL Guidelines: <100 Desirable 100-129 Near to/above Desirable 130-159 Borderline >159 Undesirable Direct (measured) LDL and calculated LDL are not interchangeable tests. Cholesterol in VLDL [Mass/Vol] NOT REPORTED 1 - 30 mg/dL [email or web address] Phone: Cholesterol.total/Chol esterol in HDL [Mass ratio] 2.5 {ratio} <5 [facility] Work Phone: Triglyceride [Mass/Vol] 71 mg/dL <150 [facility] Work Phone: Comment on above: Triglyceride Guidelines: <150 Desirable 150-199 Borderline 200-499 High >499 Very high Based on AHA Guidelines for fasting triglyceride, January 2012. [email or web address] Phone: PSA screeningOrdered By: Melissa Orozco on 02-14-2021 [facility] Work Phone: CBC Auto DifferentialOrdered By: Tereso Orozco on 02-13-2021 [facility] # 0.10 [facility] Work Phone: Absolute Immature Granulocyte NOT REPORTED [facility] Work Phone: Absolute Lymph # 1.[address] [facility] Work Phone: [facility] Cocke # 0.90 [facility] Work Phone: Basophils (Bld) [#/Vol] 0.00 10*3/uL [facility] Work Phone: Basophils/100 WBC (Bld) 1 % 0 - 2 % [email or web address] Phone: Differential Type YES [facility] Work Phone: Eosinophils/100 WBC (Bld) 1 % 0 - 5 % [facility] Work Phone: Hematocrit (Bld) [Volume fraction] 43.7 % 41 - 53 % [facility] Work Phone: Hemoglobin.gastrointes tinal spec 1 Ql (Stl) 14.8 g/dL 13.5 - 17.5 g/dL [facility] Work Phone: Immature Granulocytes NOT REPORTED 0 % [facility] Work Phone: Interpretation and review of laboratory results Abnormal [email or web address] Phone: Lymphocytes/100 WBC (Bld) 19 % 13 - 44 % [facility] Work Phone: MCH (RBC) [Entitic mass] 32.8 pg 26 - 34 pg [email or web address] Phone: MCHC (RBC) [Mass/Vol] 33.9 g/dL 31 - 37 g/dL [facility] Work Phone: MCV (RBC) [Entitic vol] 96.7 fL 80 - 100 fL [facility] Work Phone: Monocytes/100 WBC (Bld) 10 % High 5 - 9 % [facility] Work Phone: NRBC Automated NOT REPORTED per 100 WBC [facility] Work Phone: Platelet distribution width (Bld) [Ratio] 13.4 % 12.1 - 15.2 % [email or web address] Phone: Platelet Estimate NOT REPORTED [facility] Phone: Platelet mean volume (Bld) [Entitic vol] NOT REPORTED 6.0 - 12.0 fL [email or web address] Phone: Platelets (Bld) [#/Vol] 260 10*3/uL [email or web address] Phone: RBC (Bld) [#/Vol] 4.52 10*6/uL 4.5 - 5.9 m/uL [email or web address] Phone: RBC (Bld) [#/Vol] NOT REPORTED [facility] Phone: Segmented neutrophils/100 WBC (Bld) 69 % 39 - 75 % [facility] Work Phone: Segs Absolute 6.30 [facility] Work Phone: WBC (Bld) [#/Vol] 9.1 10*3/uL [email or web address] Phone: WBC (Bld) [#/Vol] NOT REPORTED [email or web address] Phone: [facility] Phone: Comprehensive Metabolic Pane lOrdered By: Tereso Orozco on 02-13-2021 Albumin [Mass/Vol] 4.3 g/dL 3.5 - 5.2 g/dL [email or web address] Phone: Albumin/Globulin Ratio NOT REPORTED [email or web address] Phone: ALP (Bld) [Catalytic activity/Vol] 69 U/L 40 - 129 U/L [email or web address] Phone: ALT [Catalytic activity/Vol] 14 U/L 5 - 41 U/L [email or web address] Phone: Anion gap [Moles/Vol] 11 mmol/L 9 - 17 mmol/L [email or web address] Phone: AST [Catalytic activity/Vol] 13 U/L <40 [email or web address] Phone: Bilirubin [Mass/Vol] 0.49 mg/dL 0.30 - 1.20 mg/dL [email or web address] Phone: Calcium [Mass/Vol] 9.4 mg/dL 8.6 - 10. 4 mg/dL [email or web address] Phone: Chloride [Moles/Vol] 103 mmol/L 98 - 10 7 mmol/L [email or web address] Phone: CO2 [Moles/Vol] 23 mmol/L 20 - 31 mmol/L [email or web address] Phone: Creatinine [Mass/Vol] 0.92 mg/dL 0.70 - 1.20 mg/dL [email or web address] Phone: Free PSA/Total PSA [Mass fraction] 6.7 g/dL 6.4 - 8.3 g/dL [email or web address] Phone: GFR >60 >60 mL/min [facility] Phone: GFR Non- >60 >60 mL/min [email or web address] Phone: GFR/1.73 sq M.predicted MDRD (S/P/Bld) [Vol rate/Area] [email or web address] Phone: Comment on above: Average GFR for 70 o r more years old: 75 mL/min/1.73sq m Chronic Kidney Disease: <60 mL/min/1.73sq m Kidney failure: <15 mL/min/1.73sq m eGFR calculated using average adult body mass. Additional eGFR calculator available at: http://[email or web address].com.cn/multiple_crcl_2012.htm GFR/1.73 sq M.predicted MDRD (S/P/Bld) [Vol rate/Area] NOT REPORTED [email or web address] Phone: Glucose [Mass/Vol] 82 mg/dL 70 - 99 mg/dL [email or web address] Phone: Potassium [Moles/Vol] 4.7 mmol/L 3.7 - 5.3 mmol/L [email or web address] Phone: Sodium [Moles/Vol] 137 mmol/L 135 - 144 mmol/L [email or web address] Phone: Urea nitrogen (BldV) [Mass/Vol] 16 mg/dL 8 - 23 mg/dL [email or web address] Phone: Urea nitrogen/Creatinine (Bld) [Mass ratio] 17 [email or web address] Phone: [email or web address] Phone: Patient Fasting?Ordered By: Tereso Orozco on 02-13-2021 Patient Fasting? yes [employer] Phone: [email or web address] Phone: TSH with ReflexOrdered By: Trisha Orozco on 02-13-2021 TSH Qn 0.94 m[IU]/L [email or web address] Phone: [email or web address] Phone: Comprehensive Metabolic Pane lOrdered By: Tereso Orozco on 08-07-2020 Albumin [Mass/Vol] 4.2 g/dL 3.5 - 5.2 g/dL [email or web address] Phone: Albumin/Globulin Ratio NOT REPORTED [email or web address] Phone: ALP (Bld) [Catalytic activity/Vol] 67 U/L 40 - 129 U/L [email or web address] Phone: ALT [Catalytic activity/Vol] 14 U/L 5 - 41 U/L [email or web address] Phone: Anion gap [Moles/Vol] 9 mmol/L 9 - 17 mmol/L [email or web address] Phone: AST [Catalytic activity/Vol] 14 U/L <40 [email or web address] Phone: Bilirubin [Mass/Vol] 0.48 mg/dL 0.30 - 1.20 mg/dL [email or web address] Phone: Calcium [Mass/Vol] 9.4 mg/dL 8.6 - 10. 4 mg/dL [email or web address] Phone: Chloride [Moles/Vol] 103 mmol/L 98 - 10 7 mmol/L [email or web address] Phone: CO2 [Moles/Vol] 25 mmol/L 20 - 31 mmol/L [email or web address] Phone: Creatinine [Mass/Vol] 0.98 mg/dL 0.70 - 1.20 mg/dL [email or web address] Phone: Free PSA/Total PSA [Mass fraction] 6.7 g/dL 6.4 - 8.3 g/dL [email or web address] Phone: GFR >60 >60 mL/min [employer] Phone: GFR Non- >60 >60 mL/min [email or web address] Phone: GFR/1.73 sq M.predicted MDRD (S/P/Bld) [Vol rate/Area] [email or web address] Phone: Comment on above: Average GFR for 70 o r more years old: 75 mL/min/1.73sq m Chronic Kidney Disease: <60 mL/min/1.73sq m Kidney failure: <15 mL/min/1.73sq m eGFR calculated using average adult body mass. Additional eGFR calculator available at: http://www.Zmqnw.com.cn/multiple_crcl_2012.htm GFR/1.73 sq M.predicted MDRD (S/P/Bld) [Vol rate/Area] NOT REPORTED [email or web address] Phone: Glucose [Mass/Vol] 100 mg/dL High 70 - 99 mg/dL [email or web address] Phone: Interpretation and review of laboratory results Abnormal [email or web address] Phone: Potassium [Moles/Vol] 4.3 mmol/L 3.7 - 5.3 mmol/L [email or web address] Phone: Sodium [Moles/Vol] 137 mmol/L 135 - 144 mmol/L [email or web address] Phone: Urea nitrogen (BldV) [Mass/Vol] 21 mg/dL 8 - 23 mg/dL [email or web address] Phone: Urea nitrogen/Creatinine (Bld) [Mass ratio] 21 High [email or web address] Phone: Lipid PanelOrdered By: Tereso Orozco on 08-07-2020 Cholesterol [Mass/Vol] 126 mg/dL <200 [facility] [employer] Phone: Comment on above: Cholesterol Guidelines: <200 Desirable 200-240 Borderline >240 Undesirable Cholesterol in HDL [Mass/Vol] 53 mg/dL >40 [email or web address] Phone: Comment on above: HDL Guidelines: <40 Undesirable 40-59 Borderline >59 Desirable Cholesterol in LDL [Mass/Vol] 48 mg/dL 0 - 130 mg/dL [email or web address] Phone: Comment on above: LDL Guidelines: <100 Desirable 100-129 Near to/above Desirable 130-159 Borderline >159 Undesirable Direct (measured) LDL and calculated LDL are not interchangeable tests. Cholesterol in VLDL [Mass/Vol] NOT REPORTED 1 - 30 mg/dL [email or web address] Phone: Cholesterol.total/Chol esterol in HDL [Mass ratio] 2.4 {ratio} <5 [email or web address] Phone: Triglyceride [Mass/Vol] 124 mg/dL <150 [email or web address] Phone: Comment on above: Triglyceride Guidelines: <150 Desirable 150-199 Borderline 200-499 High >499 Very high Based on AHA Guidelines for fasting triglyceride, January 2012. Patient Fasting?Ordered By: Tereso Orozco on 08-07-2020 Patient Fasting? yes [employer] Phone: FLUORO FOR SURGICAL PROCEDUR ESon 12-23-2019 Impression: Fluoroscopic assistance provided for operative guidance. [employer] Exam: FLUORO FOR SURGICAL PROCEDURES History: R52 Pain ICD10 Findings: Fluoroscopy time was 0.1 minutes. A total of 2 fluoroscopic images were obtained by Dr. King during the operative procedure. Hemostat seen localized on the lateral view at the level of the L5 spinous process and on the frontal view at the level of the L3 and L5 vertebra. [email or web address] [place], [place] Incoming Radiant Results From [employer] - 12/23/2019 1:37 PM EDT Exam: FLUORO FOR SURGICAL PROCEDURES History: R52 Pain ICD10 Findings: Fluoroscopy time was 0.1 minutes. A total of 2 fluoroscopic images were obtained by Dr. King during the operative procedure. Hemostat seen localized on the lateral view at the level of the L5 spinous process and on the frontal view at the level of the L3 and L5 vertebra. IMPRESSION: Impression: Fluoroscopic assistance provided for operative guidance. [employer] FLUORO FOR SURGICAL PROCEDUR ESon 12-22-2019 FLUORO FOR SURGICAL PROCEDURES Exam: FLUORO FOR SURGICAL PROCEDURES History: R52 Pain ICD10 Findings: Fluoroscopy time was 0.1 minutes. A total of 2 fluoroscopic images were obtained by Dr. King during the operative procedure. Hemostat seen localized on the lateral view at the level of the L5 spinous process and on the frontal view at the level of the L3 and L5 vertebra. IMPRESSION: Impression: Fluoroscopic assistance provided for operative guidance. Interpreted by: Brian Mcmahon MD Signed by: Brian Mcmahon MD 12/23/19 Final result Normal [facility] Surgical Specimenon 12-22-19 20 Surgical Specimen [facility] [address] [place] [address] [id number] FINAL SURGICAL PATHOLOGY REPORT Patient Name: ELIZABETH REIS Accession No: [id number] Age Sex: 1945 Location: [facility] Account No: [id number] Collected: 12/22/2019 Med Rec No: [id number] Received: 12/23/2019 Attend Phys: RONNIE KING Completed: 12/26/2019 Perform Phys: RONNIE KING FINAL DIAGNOSIS: DISC, L3 RE-EXPLORATION AND DECOMPRESSION, L4 DECOMPRESSION, L5 FORAMINOTOMY: NUCLEUS PULPOSIS WITH DEGENERATIVE CHANGES JACMO/JACMO CLINICAL INFORMATION: Stenosis, radiculopathy, weakness. SPECIMEN: Disc GROSS DESCRIPTION: The specimen is received in formalin in a container labeled with the patient's name and designated as spine . The specimen consists of multiple grayish-valentino soft tissue fragments measuring in aggregate 0.9 x 0.5 x 0.2 cm. The specimen is submitted in toto in one cassette after a brief decalcification. REAGAN/MONO CPT: 91690 X1 Omar DAWKINS M.D. 12/26/2019 Electronically signed out by Page 1 of 1 [facility] Comment on above: Performed By: #### S UR #### [address] [address] COVID-19, NAAon 12-18-2019 COVID-19, SNEHAL Not Detected Normal Not Detect [facility] Comment on above: Result Comment: This nucleic acid amplification test was developed and its performance characteristics determined by [employer]. Nucleic acid amplification tests include PCR and TMA. This test has not been FDA cleared or approved. This test has been authorized by FDA under an Emergency Use Authorization (EUA). This test is only authorized for the duration of time the declaration that circumstances exist justifying the authorization of the emergency use of in vitro diagnostic tests for detection of SARS-CoV-2 virus and/or diagnosis of COVID-19 infection under section 564(b)(1) of the Act, 21 U.S.C. 360bbb-3(b) (1), unless the authorization is terminated or revoked sooner. When diagnostic testing is negative, the possibility of a false negative result should be considered in the context of a patient's recent exposures and the presence of clinical signs and symptoms consistent with COVID-19. An individual without symptoms of COVID-19 and who is not shedding SARS-CoV-2 virus would expect to have a negative (not detected) result in this assay. Performed at: [facility] [address], [facility], [place] [id number] Estate Manager: Ross Diop [facility], Phone: [phone] Performed By: #### I RCOV #### [facility] [address] [facility] [address] Covid-19 Ambulatoryon 2019 SARS-CoV-2 Not Detected Not Detected [facility], [place] Comment on above: This nucleic acid am plification test was developed and its performance characteristics determined by [employer]. Nucleic acid amplification tests include PCR and TMA. This test has not been FDA cleared or approved. This test has been authorized by FDA under an Emergency Use Authorization (EUA). This test is only authorized for the duration of time the declaration that circumstances exist justifying the authorization of the emergency use of in vitro diagnostic tests for detection of SARS-CoV-2 virus and/or diagnosis of COVID-19 infection under section 564(b)(1) of the Act, 21 U.S.C. 360bbb-3(b) (1), unless the authorization is terminated or revoked sooner. When diagnostic testing is negative, the possibility of a false negative result should be considered in the context of a patient's recent exposures and the presence of clinical signs and symptoms consistent with COVID-19. An individual without symptoms of COVID-19 and who is not shedding SARS-CoV-2 virus would expect to have a negative (not detected) result in this assay. Performed at: [email or web address] [place] [address], [place], [place] [id number] Estate Manager: Ross Diop [facility], Phone: [phone] Source RETAIL SALES REPRESENTATIVE swab [facility] [place], [place] Basic Metabolic Panelon 09-0 Anion gap [Moles/Vol] 10 mmol/L Normal 9-15 [facility] Comment on above: Performed By: #### B MP #### [facility] [address] [place] [address] Calcium [Mass/Vol] 9.3 mg/dL Normal 8.5-9.9 [facility] Comment on above: Performed By: #### B MP #### [facility] [address] [place] [address] Chloride [Moles/Vol] 103 mmol/L Normal 95-107 [facility] Comment on above: Performed By: #### B MP #### [facility] [address] [place] [address] CO2 [Moles/Vol] 25 mmol/L Normal 20-31 [facility] Comment on above: Performed By: #### B MP #### [facility] [address] [place] [address] Creatinine [Mass/Vol] 1.17 mg/dL Normal 0.70-1.20 [facility] Comment on above: Performed By: #### B MP #### [facility] [address] [place] [address] GFR/1.73 sq M predicted among blacks MDRD (S/P/Bld) [Vol rate/Area] mL/min/{1.73_m2} Normal >60 [facility] Comment on above: Result Comment: >60 mL/min/1.73m2 EGFR, calc. for ages 18 and older using the MDRD formula (not corrected for weight), is valid for stable renal function. Performed By: #### B MP #### [facility] [address] [place] [address] GFR/1.73 sq M.predicted MDRD (S/P/Bld) [Vol rate/Area] mL/min/{1.73_m2} Normal >60 [facility] Comment on above: Result Comment: >60 mL/min/1.73m2 EGFR, calc. for ages 18 and older using the MDRD formula (not corrected for weight), is valid for stable renal function. Performed By: #### B MP #### [facility] [address] [place] [address] Glucose [Mass/Vol] 105 mg/dL Critically high 70-99 M [facility] Comment on above: Performed By: #### B MP #### [facility] [address] [place] [address] Potassium [Moles/Vol] 4.5 mmol/L Normal 3.4-4.9 [facility] Comment on above: Performed By: #### B MP #### [facility] [address] [place] [address] Sodium [Moles/Vol] 138 mmol/L Normal 135-144 [facility] Comment on above: Performed By: #### B MP #### [facility] [address] [place] [address] Urea nitrogen [Mass/Vol] 23 mg/dL Normal 8-23 [facility] Comment on above: Performed By: #### B MP #### [facility] [address] [place] [address] Anion gap [Moles/Vol] 10 mmol/L [facility] [place], [place] Calcium [Mass/Vol] 9.3 mg/dL 8.5 - 9.9 mg/dL [facility], [place] Chloride [Moles/Vol] 103 mmol/L [facility] [place], [place] CO2 [Moles/Vol] 25 mmol/L [facility] [place], [place] Creatinine [Mass/Vol] 1.17 mg/dL 0.7 - 1.2 mg/dL [facility] [place] GFR >60.0 >60 [facility] [place], [place] Comment on above: >60 mL/min/1.73m2 EG FR, calc. for ages 18 and older using the MDRD formula (not corrected for weight), is valid for stable renal function. GFR Non- >60.0 >60 [place], [place] Comment on above: >60 mL/min/1.73m2 EG FR, calc. for ages 18 and older using the MDRD formula (not corrected for weight), is valid for stable renal function. Glucose [Mass/Vol] 105 mg/dL High 70 - 99 mg/dL [place] Interpretation and review of laboratory results Abnormal [place] Potassium [Moles/Vol] 4.5 mmol/L [place], [place] Sodium [Moles/Vol] 138 mmol/L [place] Urea nitrogen [Mass/Vol] 23 mg/dL 8 - 23 mg/dL [place] COVID-19, NAAon 12-15-2019 Source Swab RETAIL SALES REPRESENTATIVE swab Normal [facility] Comment on above: Performed By: #### I RCOV #### [facility] [address] [facility] [address] Prothrombin Timeon 0 INR Coag (PPP) [Relative time] 0.9 {INR} Normal [facility] Comment on above: Performed By: #### P T #### [facility] [address] [facility] [address] PT Coag (PPP) [Time] 12.6 s Normal 12.3-14.9 [facility] Comment on above: Performed By: #### P T #### [facility] [address] [facility] [address] Protime-INRon 12-15-2019 INR Coag (PPP) [Relative time] 0.9 {INR} [place], [place] PT Coag (PPP) [Time] 12.6 s [place] TYPE AND SCREENon 12-15-2019 ABO/Rh Negative [place], [place] Type and Screen Capture 3 sc rn cellon 12-15-2019 Type and Screen Capture 3 scrn cell PATIENT: SMILEY Solano LOC: [facility] BILL# : [id number] : 1945 SEX: M ORDERED BY: STEW Gibbs ORDERED : 12/15/2019 14:24 COLLECTED: 12/15/2019 14:54 ORDER : [id number] RECEIVED : 12/15/2019 14:54 TEST NAME RESULT UNITS RANGES ABN FL ST ABORH Capture O NEG F Antibody 3 Cell Scrn Captu NEG F Normal [facility] Comment on above: Performed By: #### T S3C #### [facility] [address] [place] [address] CBC Auto Differentialon 11-11 Basophils (Bld) [#/Vol] 0.00 10*3/uL [place] Basophils/100 WBC (Bld) 0 % 0 - 2 % [place] Differential Type YES [place] Eosinophils (Bld) [#/Vol] 0.10 10*3/uL [place] Eosinophils/100 WBC (Bld) 0 % 0 - 5 % [place] Erythrocyte distribution width (RBC) [Ratio] 13.9 % 12.1 - 15.2 % [place] Hematocrit (Bld) [Volume fraction] 46.7 % 41 - 53 % [place] Hemoglobin (Bld) [Mass/Vol] 15.8 g/dL 13.5 - 17.5 g/dL [place] Interpretation and review of laboratory results Abnormal [place] Lymphocytes (Bld) [#/Vol] 2.00 10*3/uL [place] Lymphocytes/100 WBC (Bld) 16 % 13 - 44 % [place] MCH (RBC) [Entitic mass] 32.6 pg 26 - 34 pg [place] MCHC (RBC) [Mass/Vol] 33.8 g/dL 31 - 37 g/dL [place] MCV (RBC) [Entitic vol] 96.6 fL 80 - 100 fL [place] Monocytes (Bld) [#/Vol] 1.00 10*3/uL [place] Monocytes/100 WBC (Bld) 8 % 5 - 9 % [place] Platelet mean volume (Bld) [Entitic vol] NOT REPORTED 6 - 12 fL [place], [place] Platelets (Bld) [#/Vol] NOT REPORTED [place] Platelets (Bld) [#/Vol] 256 10*3/uL [place] RBC (Bld) [#/Vol] 4.84 10*6/uL 4.5 - 5.9 m/uL [place] RBC morphology finding Nom (Bld) NOT REPORTED [place] Segmented neutrophils/100 WBC (Bld) 76 % High 39 - 75 % [place] Segs Absolute 9.80 High [place] WBC (Bld) [#/Vol] 12.9 10*3/uL [place] WBC (Bld) [#/Vol] NOT REPORTED per 100 WBC [place] WBC Morphology NOT REPORTED [place] Otheron 11-30-2019 Immature granulocytes (Bld) [#/Vol] NOT REPORTED [place] TSH with Reflexon 11-30-2019 TSH Qn 0.99 m[IU]/L [place] MRI LUMBAR SPINE WO CONTRAST on 11-17-2019 Severe spinal canal stenosis at L4-L5 secondary to facet arthropathy and degenerative discogenic change. There is additional moderate spinal canal stenosis at L1-L2 and L2-L3 secondary to facet arthropathy and congenitally shortened pedicles. Moderate neural foraminal narrowing at the right L3-L4 and left L5-S1 levels with mild to moderate neural foraminal narrowing bilaterally at L4-L5 and the right L5-S1 level. [place], [place] EXAM: MRI LUMBAR SPINE WO CONTRAST INDICATION: Reason for exam:->foot drop right, L5 radiculopathy. Right foot drop and numbness for the past month. COMPARISON: None TECHNIQUE/PROTOCOL: Noncontrast lumbar spine MR protocol (Sagittal T1, T2, STIR and axial T1, T2 sequences). FINDINGS: Segmentation: Normal. Conus: The conus terminates at approximately the L1-L2 interspace level. Spinal Cord and Cauda Equina: The visualized cord is normal in morphology and signal. Normal appearance of the cauda equina. Epidural Hematoma: None. Alignment: Normal. Marrow Signal: Multilevel type II Modic endplate signal change. No abnormal marrow edema. Vertebral Body Heights: Normal. Sacroiliac Joints: Mild arthrosis bilaterally. Paraspinal Soft Tissues: Unremarkable. Retroperitoneal Soft Tissues: Incompletely characterized simple appearing cystic bilateral renal lesions. Degenerative change: T12-L1: Unremarkable. L1-L2: Moderate facet arthropathy. Minimal disc bulge. Congenitally shortened pedicles. Moderate spinal canal stenosis. No substantial neural foraminal narrowing. L2-L3: Moderate to severe facet arthropathy. Minimal disc bulge. Congenitally shortened pedicles. Moderate spinal canal stenosis. Mild bilateral neural foraminal narrowing. L3-L4: Moderate to severe facet arthropathy. Mild disc bulge with hypertrophic endplate spurring. Lateral recess narrowing with no additional spinal canal stenosis. Mild left and moderate right neural foraminal narrowing. L4-L5: Moderate left and mild right facet arthropathy with ligamentum flavum thickening. Moderate disc bulge with hypertrophic endplate spurring. Severe spinal canal stenosis with lateral recess stenosis. Mild to moderate bilateral neural foraminal narrowing. L5-S1: Severe left and moderate right facet arthropathy. Mild disc bulge with hypertrophic endplate spurring. No spinal canal stenosis. Mild to moderate right and moderate left neural foraminal narrowing. [place], [place], [employer] Incoming Radiant Results From [employer] - 11/17/2019 2:19 PM EDT EXAM: MRI LUMBAR SPINE WO CONTRAST INDICATION: Reason for exam:->foot drop right, L5 radiculopathy. Right foot drop and numbness for the past month. COMPARISON: None TECHNIQUE/PROTOCOL: Noncontrast lumbar spine MR protocol (Sagittal T1, T2, STIR and axial T1, T2 sequences). FINDINGS: Segmentation: Normal. Conus: The conus terminates at approximately the L1-L2 interspace level. Spinal Cord and Cauda Equina: The visualized cord is normal in morphology and signal. Normal appearance of the cauda equina. Epidural Hematoma: None. Alignment: Normal. Marrow Signal: Multilevel type II Modic endplate signal change. No abnormal marrow edema. Vertebral Body Heights: Normal. Sacroiliac Joints: Mild arthrosis bilaterally. Paraspinal Soft Tissues: Unremarkable. Retroperitoneal Soft Tissues: Incompletely characterized simple appearing cystic bilateral renal lesions. Degenerative change: T12-L1: Unremarkable. L1-L2: Moderate facet arthropathy. Minimal disc bulge. Congenitally shortened pedicles. Moderate spinal canal stenosis. No substantial neural foraminal narrowing. L2-L3: Moderate to severe facet arthropathy. Minimal disc bulge. Congenitally shortened pedicles. Moderate spinal canal stenosis. Mild bilateral neural foraminal narrowing. L3-L4: Moderate to severe facet arthropathy. Mild disc bulge with hypertrophic endplate spurring. Lateral recess narrowing with no additional spinal canal stenosis. Mild left and moderate right neural foraminal narrowing. L4-L5: Moderate left and mild right facet arthropathy with ligamentum flavum thickening. Moderate disc bulge with hypertrophic endplate spurring. Severe spinal canal stenosis with lateral recess stenosis. Mild to moderate bilateral neural foraminal narrowing. L5-S1: Severe left and moderate right facet arthropathy. Mild disc bulge with hypertrophic endplate spurring. No spinal canal stenosis. Mild to moderate right and moderate left neural foraminal narrowing. IMPRESSION: Severe spinal canal stenosis at L4-L5 secondary to facet arthropathy and degenerative discogenic change. There is additional moderate spinal canal stenosis at L1-L2 and L2-L3 secondary to facet arthropathy and congenitally shortened pedicles. Moderate neural foraminal narrowing at the right L3-L4 and left L5-S1 levels with mild to moderate neural foraminal narrowing bilaterally at L4-L5 and the right L5-S1 level. [place], [place] Lung Screen (Annual)on 1. No evidence of pulmonary malignancy. 2. Stable nodular thickening of the minor fissure. Calcified sequela of prior granulomatous infection. Mild centrilobular emphysema. 3. Moderately severe diffuse coronary arterial calcifications. 4. Stable cyst noted within the included aspect of the liver. Lung-RADS: Lung-RADS 2 [facility] L 1 1 [id number] Lung Lung Lung [id number] EXAM: CT LUNG SCREENING (INITIAL/ANNUAL). INDICATION: Age: Patient is 73 y.o., greater than 50 pack year smoking history. COMPARISON: 10/11/2018. 10/06/2017. TECHNIQUE: Low-dose axial CT imaging obtained through the chest for the purposes of lung cancer screening. Axial images and multiplanar reformatted images reviewed. Individualized dose optimization technique was used in order to meet ALARA standards for radiation dose reduction. In addition to vendor specific dose reduction algorithms, the dose reduction techniques vary based on the specific scanner utilized but frequently include automated exposure control, adjustment of the mA and/or kV according to patient size, and use of iterative reconstruction technique. FINDINGS: Stable nodular thickening of the minor fissure is again identified. Pulmonary granulomatous calcifications are present. Mild centrilobular emphysema is present. There are a few nonenlarged stable mediastinal lymph nodes, likely reactive. Moderately severe diffuse coronary arterial calcifications are present. Cysts are noted within the visualized liver, unchanged. FINDINGS: Solid nodule(s): <6 mm or new <4 mm; part solid nodule(s) <6 mm total diameter on baseline screening; nonsolid nodule(s) (GGN): <20 mm or greater than/equal to 20 mm and unchanged or slowly growing; category 3 or 4 nodules unchanged for greater than/equal to 3 months. MANAGEMENT: Continue annual screening with LDCT in 12 months. [place], [place], [employer] Incoming Radiant Results From [employer] - 11/15/2019 1:15 PM EDT L 1 1 [id number] Lung Lung Lung [id number] EXAM: CT LUNG SCREENING (INITIAL/ANNUAL). INDICATION: Age: Patient is 73 y.o., greater than 50 pack year smoking history. COMPARISON: 10/11/2018. 10/06/2017. TECHNIQUE: Low-dose axial CT imaging obtained through the chest for the purposes of lung cancer screening. Axial images and multiplanar reformatted images reviewed. Individualized dose optimization technique was used in order to meet ALARA standards for radiation dose reduction. In addition to vendor specific dose reduction algorithms, the dose reduction techniques vary based on the specific scanner utilized but frequently include automated exposure control, adjustment of the mA and/or kV according to patient size, and use of iterative reconstruction technique. FINDINGS: Stable nodular thickening of the minor fissure is again identified. Pulmonary granulomatous calcifications are present. Mild centrilobular emphysema is present. There are a few nonenlarged stable mediastinal lymph nodes, likely reactive. Moderately severe diffuse coronary arterial calcifications are present. Cysts are noted within the visualized liver, unchanged. FINDINGS: Solid nodule(s): <6 mm or new <4 mm; part solid nodule(s) <6 mm total diameter on baseline screening; nonsolid nodule(s) (GGN): <20 mm or greater than/equal to 20 mm and unchanged or slowly growing; category 3 or 4 nodules unchanged for greater than/equal to 3 months. MANAGEMENT: Continue annual screening with LDCT in 12 months. IMPRESSION: 1. No evidence of pulmonary malignancy. 2. Stable nodular thickening of the minor fissure. Calcified sequela of prior granulomatous infection. Mild centrilobular emphysema. 3. Moderately severe diffuse coronary arterial calcifications. 4. Stable cyst noted within the included aspect of the liver. Lung-RADS: Lung-RADS 2 [place], [place] Basic Metabolic Panelon 09-0 Anion gap [Moles/Vol] 11 mmol/L 10 - 2 0 mmol/L [facility] Calcium [Mass/Vol] 9.3 mg/dL 8.4 - 10. 2 mg/dL [facility] Chloride [Moles/Vol] 104 mmol/L 98 - 10 8 mmol/L [facility] Creatinine [Mass/Vol] 1.20 mg/dL 0.8 - 1.3 mg/dL [facility] GFR/1.73 sq M predicted among non-blacks MDRD (S/P/Bld) [Vol rate/Area] The eGFR should be used for monitoring renal function only and not for medication dosing. [facility] GFR/1.73 sq M.predicted CKD-EPI (S/P/Bld) [Vol rate/Area] 60 >=60 mL/min/1.73 m2 [facility] Glucose [Mass/Vol] 96 mg/dL 65 - 99 mg/dL [facility] HCO3 [Moles/Vol] 28 mmol/L 21 - 32 mmol/L [facility] Interpretation and review of laboratory results Normal [facility] Potassium [Moles/Vol] 4.7 mmol/L 3.5 - 5.1 mmol/L [facility] Sodium [Moles/Vol] 138 mmol/L 135 - 145 mmol/L [facility] Urea nitrogen [Mass/Vol] 15 mg/dL 8 - 25 mg/dL [facility] Urea nitrogen/Creatinine [Mass ratio] 12.5 mg/mg [facility] SCAN OTHER ORDERSon 12-18-19 19 Ordered by an unspecified provider. [facility] US SCREENING FOR AAAon 11-25 No abdominal aortic aneurysm. [place], [place] EXAM: US SCREENING FOR AAA HISTORY: Reason for exam:->screening AAA, age 73, male, smoker, HTN. COMPARISON: None. TECHNIQUE: Limited abdominal aorta ultrasound for aneurysm. FINDINGS: No abdominal aortic aneurysm. The proximal aorta measures 2.3 cm, the mid aorta 1.8 cm, and the distal aorta 1.7 cm in greatest transverse diameter. The iliac arteries measure 1 cm bilaterally. [place], [place], [facility] Incoming Radiant Results From [employer] - 11/25/2018 11:05 AM EDT EXAM: US SCREENING FOR AAA HISTORY: Reason for exam:->screening AAA, age 73, male, smoker, HTN. COMPARISON: None. TECHNIQUE: Limited abdominal aorta ultrasound for aneurysm. FINDINGS: No abdominal aortic aneurysm. The proximal aorta measures 2.3 cm, the mid aorta 1.8 cm, and the distal aorta 1.7 cm in greatest transverse diameter. The iliac arteries measure 1 cm bilaterally. IMPRESSION: No abdominal aortic aneurysm. [place], [place] SURGon 11-27-2016 SURG Name: ELIZABETH REIS Resubmission due to incomplete transmission of the original reportSource A. Colon, biopsy, Ileocecal Valve B. Colon, Ascending, polyp C. Colon, Ascending, polyp, Mid D. Colon, Transverse, polyp, Mid E. Colon, Transverse, polyp, Proximal (B) F. Colon, Transverse, polyp, Distal G. Colon, polyp, 60 cm H. Colon, Ascending, polyp, Proximal I. Colon, Transverse, polyp, Proximal (A) J. Colon, polyp, 48 cm K. Colon, polyp, 45 cm L. Colon, polyp, 38 cm M. Colon, polyp, 35 cm N. Colon, polyp, 33 cm O. Colon, polyp, 32 cm P. Colon, polyp, 31 cm Q. Colon, polyp, 25 cm R. Colon, Rectum, polyp Clinical History Personal Hx Of Colon Polyps Adenomatous, High Risk For Colon Cancer, Diverticulosis, Hemorhoids Diagnosis A. 1. Colonic-type mucosa with no significant pathologic changes. 2. No evidence of dysplasia or malignancy. B. Tubular adenoma. C. Tubulovillous adenoma. D. Tubular adenoma. E. 1. Colonic mucosa with mild hyperplastic changes. 2. No evidence of dysplasia. F. Tubular adenoma. G. Tubular adenoma. H. Tubulovillous adenoma. I. Tubular adenoma. J. 1. Cauterized colonic mucosa with a reactive-appearing lymphoid aggregate. 2. No evidence of dysplasia. K. Tubulovillous adenoma. L. Tubular adenoma. M. Tubulovillous adenoma. N. Tubulovillous adenoma. O. Tubulovillous adenoma. P. Tubulovillous adenoma. Q. Tubular adenoma. R. Tubular adenoma. HW Gross Description A. Received in formalin are two fragments measuring in aggregate of 0.5 x 0.3 x 0.2 cm. ET 1 block. B. The specimen received in formalin is a fragment measuring 0.8 x 0.5 x 0.3 cm. Totally submitted in one cassette. C. Received in formalin are multiple fragments measuring in aggregate of 0.6 x 0.5 x 0.3 cm. ET 1 block. D. The specimen received in formalin is a fragment measuring 0.2 x 0.2 x 0.2 cm. Totally submitted in one cassette. E. The specimen received in formalin is a fragment measuring 0.2 x 0.2 x 0.2 cm. Totally submitted in one cassette. F. The specimen received in formalin is a fragment measuring 0.6 x 0.5 x 0.4 cm. Totally submitted in one cassette. G. The specimen received in formalin is a fragment measuring 0.5 x 0.4 x 0.3 cm. Totally submitted in one cassette. H. Received in formalin are two fragments measuring in aggregate of 1.3 x 0.8 x 0.4 cm. Each piece is bisected and totally submitted into 1 block. I. The specimen received in formalin is a fragment measuring 0.6 x 0.5 x 0.4 cm. Bisected and totally submitted in one cassette. J. The specimen received in formalin is a fragment measuring 0.3 x 0.2 x 0.2 cm. Totally submitted in one cassette. K. Received in formalin are three fragments measuring in aggregate of 1.6 x 1.2 x 0.5 cm. The larger pieces are bisected. ET 1 block. L. Received in formalin are two fragments measuring in aggregate of 0.9 x 0.9 x 0.3 cm. ET 1 block. M. The specimen received in formalin is a fragment measuring 1.5 x 1 x 0.6 cm. Serially sectioned. Totally submitted in one cassette. N. Received in formalin are three fragments measuring in aggregate 1.2 x 0.6 x 0.5 cm. The larger piece is bisected, and all totally submitted into 1 block. O. The specimen received in formalin is a fragment measuring 1 x 0.8 x 0.5 cm. Serially sectioned. Totally submitted in one cassette. P. The specimen received in formalin is a fragment measuring 1.3 x 0.9 x 0.9 cm. Serially sectioned. Totally submitted in one cassette. Q. Received in formalin are multiple fragments measuring in aggregate of 0.6 x 0.5 x 0.3 cm. ET 1 block. R. The specimen received in formalin is a fragment measuring 0.3 x 0.3 x 0.2 cm. Totally submitted in one cassette. DS/arj (ICT/arj) Electronically Signed By Eduardo Ramos MD , Pathologist (Case signed 12/01/2016) [facility] Vital Signs Date Time Vital Sign Value Performing Clinician Facility 06-16-2023 10:30-0500 Diastolic blood pressure 79 mm[Hg] Cleopatra Sotelo MD Work Phone: [facility] 06-16-2023 10:30-0500 Heart rate 75 /min Cleopatra Sotelo MD Work Phone: [facility] 06-16-2023 10:30-0500 Respiratory rate 20 /min Cleopatra Sotelo MD Work Phone: [facility] 06-16-2023 10:30-0500 SaO2% (BldA) [Mass fraction] 100 % Cleopatra Sotelo MD Work Phone: [facility] 06-16-2023 10:30-0500 Systolic blood pressure 145 mm[Hg] [facility] 06-16-2023 10:00-0500 Body temperature 97.3 [degF] Cleopatra Sotelo MD Work Phone: [facility] [employer] 06-16-2023 07:39-0500 Body height 182.9 cm Cleopatra Sotelo [facility] 06-16-2023 07:39-0500 Body mass index (BMI) [Ratio] 29.35 kg/m2 [facility]elo [facility] 06-16-2023 07:39-0500 Body weight 98.16 kg Cleopatra Sotelo MD [facility] 03-01-2021 14:13-0500 Body mass index (BMI) [Ratio] 29.79 kg/m2 Jadon Byrnes MD Work Phone: [facility] 03-01-2021 14:13-0500 Body temperature 98.91 [degF] Jadon Byrnes MD Work Phone: [facility] 03-01-2021 14:13-0500 Body weight 105.23 kg Jadon Byrnes MD Work Phone: [facility] 03-01-2021 14:13-0500 Diastolic blood pressure 85 mm[Hg] Jadon Byrnes MD Work Phone: [facility] 03-01-2021 14:13-0500 Heart rate 85 /min Jadon Byrnes MD Work Phone: [facility] 03-01-2021 14:13-0500 Respiratory rate 18 /min Jadon Byrnes MD Work Phone: [facility] 03-01-2021 14:13-0500 SaO2% (BldA) [Mass fraction] 92 % Jadon Byrnes MD Work Phone: [facility] 03-01-2021 14:13-0500 Systolic blood pressure 168 mm[Hg] Jadon Byrnes MD Work Phone: [facility] 12-22-2019 15:26-0400 Body Temperature 97 [degF] Ronnie Christine [facility] [place] 12-22-2019 15:26-0400 BP Diastolic 72 mm[Hg] Ronnie Christine [facility] [place] [facility] [place] 12-22-2019 15:26-0400 BP Systolic 142 mm[Hg] Ronnie Christine [facility] [place] [facility] [place] 12-22-2019 15:26-0400 Pulse (Heart Rate) 88 /min Ronnie Christine [facility] [place] 12-22-2019 15:26-0400 Pulse Oximetry 97 % Ronnie Christine [facility] [place] [facility] [place] 12-22-2019 15:05-0400 Respiratory Rate 15 /min [facility] [place] [place] 12-22-2019 08:50-0400 BMI (Body Mass Index) 30.74 kg/m2 Ronnie Christine [facility] [place] 12-22-2019 08:50-0400 Body weight 105.69 kg Ronnie Christine [facility] [place] [facility] [place] 12-22-2019 08:50-0400 Height 185.4 cm Ronnie Christine [facility] [place] [facility] [place] 12-15-2019 14:42-0400 BMI (Body Mass Index) 30.74 kg/m2 [facility] [place] [place] 12-15-2019 14:42-0400 Body Temperature 97.81 [degF] [facility] [place] [place] 12-15-2019 14:42-0400 Body weight 105.69 kg [facility] [place] [facility] [place] 12-15-2019 14:42-0400 BP Diastolic 84 mm[Hg] [facility] [place] [facility] [place] 12-15-2019 14:42-0400 BP Systolic 181 mm[Hg] oz 1 [facility] [place] [facility] [place] 12-15-2019 14:42-0400 Height 185.4 cm [facility] [place] [facility] [place] 12-15-2019 14:42-0400 Pulse (Heart Rate) 81 /min [facility] [place] [place] 12-15-2019 14:42-0400 Pulse Oximetry 97 % [facility] 1 [facility] [place] , [place] 12-15-2019 14:42-0400 Respiratory Rate 20 /min [facility] 1 [facility] [place] [place] 12-20-2018 10:20-0400 Body Temperature 98.6 [degF] [facility] 12-20-2018 10:20-0400 BP Diastolic 84 mm[Hg] [facility] 12-20-2018 10:20-0400 BP Systolic 143 mm[Hg] [facility] 12-20-2018 10:20-0400 Pulse (Heart Rate) 76 /min [facility] 12-20-2018 10:20-0400 Pulse Oximetry 97 % [facility] 12-20-2018 10:20-0400 Respiratory Rate 16 /min [facility] 12-17-2018 08:12-0400 BMI (Body Mass Index) 28.89 kg/m2 [place] [facility] 12-17-2018 08:12-0400 Body weight 102.06 kg [place] [facility] 12-17-2018 08:12-0400 Height 188 cm [place] [facility] Encounters Encounter Date Encounter Type Care Provider Facility Start: 05-23-2024 End: 05-23-2024 Office outpatient visit 15 minutes Caitie VILLA Work Phone: [facility] Comment on above: Seborrheic keratosis (Primary Dx); Actinic keratosis; History of squamous cell carcinoma of skin; Melanocytic nevus of trunk; Lentigines Start: 05-23-2024 End: 05-23-2024 ambulatory CAITIE DEL CID Not Available Start: 05-04-2024 End: 05-04-2024 Admission to same day surgery center Harleen Barba MD Work Phone: [facility] Comment on above: Aftercare following surgery of the musculoskeletal system (Primary Dx) Start: 05-04-2024 End: 05-08-2024 ambulatory Lissy Jacques [facility] Start: 05-02-2024 End: 05-02-2024 Admission to same day surgery center Harleen Barba MD Work Phone: [facility] Comment on above: Aftercare following surgery of the musculoskeletal system (Primary Dx) Start: 05-02-2024 End: 05-06-2024 [facility] Start: 04-25-2024 End: 04-25-2024 Admission to same day surgery center Harleen Barba MD Work Phone: [facility] Comment on above: Aftercare following surgery of the musculoskeletal system (Primary Dx) Start: 04-25-2024 End: 04-29-2024 ambulatory Sobiaholly Saldanaett [facility] Start: 04-20-2024 End: 04-20-2024 Admission to same day surgery center Harleen Barba MD Work Phone: [facility] Comment on above: Aftercare following surgery of the musculoskeletal system (Primary Dx) Start: 04-20-2024 End: 04-24-2024 [facility] Start: 04-18-2024 End: 04-18-2024 Admission to same day surgery center Harleen Barba MD Work Phone: [facility] Comment on above: Aftercare following surgery of the musculoskeletal system (Primary Dx) Start: 04-18-2024 End: 04-22-2024 [facility] Start: 04-15-2024 End: 04-15-2024 Admission to same day surgery center Harleen Barba MD Work Phone: [facility] Comment on above: Aftercare following surgery of the musculoskeletal system (Primary Dx) Start: 04-15-2024 End: 04-19-2024 ambulatory Sondra Tavarez [facility] Start: 04-12-2024 End: 04-12-2024 Admission to same day surgery center Harleen Barba MD Work Phone: [facility] Comment on above: Aftercare following surgery of the musculoskeletal system (Primary Dx) Start: 04-12-2024 End: 04-16-2024 ambulatory Sondraawilda Tavarez [facility] Start: 04-08-2024 End: 04-08-2024 Admission to same day surgery center Harleen Barba MD Work Phone: [facility] Comment on above: Aftercare following surgery of the musculoskeletal system (Primary Dx) Start: 04-08-2024 End: 04-12-2024 ambulatory Lissy Jacques [facility] Start: 04-04-2024 End: 04-04-2024 Admission to same day surgery center Harleen Barba MD Work Phone: [facility] Comment on above: Aftercare following surgery of the musculoskeletal system (Primary Dx) Start: 04-04-2024 End: 04-08-2024 ambulatory Da Gaspar [facility] Start: 03-31-2024 End: 03-31-2024 Admission to same day surgery center Harleen Barba MD Work Phone: [facility] Comment on above: Aftercare following surgery of the musculoskeletal system (Primary Dx) Start: 03-31-2024 End: 04-04-2024 ambulatory Lissy Jacques [facility] Start: 03-29-2024 End: 03-29-2024 Admission to same day surgery center Harleen Barba MD Work Phone: [facility] Comment on above: Aftercare following surgery of the musculoskeletal system (Primary Dx) Start: 03-29-2024 End: 04-02-2024 ambulatory Lilly Ham [facility] Start: 03-25-2024 End: 03-25-2024 Admission to same day surgery center Harleen Barba MD Work Phone: [facility] Comment on above: Aftercare following surgery of the musculoskeletal system (Primary Dx) Start: 03-25-2024 End: 03-29-2024 ambulatory Sobia Diana [facility] Start: 03-21-2024 End: 03-21-2024 Admission to same day surgery center Harleen Barba MD Work Phone: [facility] Comment on above: Aftercare following surgery of the musculoskeletal system (Primary Dx) Start: 03-21-2024 End: 03-25-2024 ambulatory Sobia Diana [facility] Start: 03-18-2024 End: 03-18-2024 Admission to same day surgery center Harleen Barba MD Work Phone: [facility] Comment on above: Aftercare following surgery of the musculoskeletal system (Primary Dx) Start: 03-18-2024 End: 03-22-2024 ambulatory Da Gaspar [facility] Start: 03-14-2024 End: 03-14-2024 Admission to same day surgery center Harleen Barba MD Work Phone: [facility] Comment on above: Aftercare following surgery of the musculoskeletal system (Primary Dx) Start: 03-14-2024 End: 03-18-2024 ambulatory Da Gaspar [facility] Start: 03-11-2024 End: 03-11-2024 Admission to same day surgery center Harleen Barba MD Work Phone: [facility] Comment on above: Aftercare following surgery of the musculoskeletal system (Primary Dx) Start: 03-11-2024 End: 03-15-2024 ambulatory Dk Anaya [facility] Start: 03-04-2024 End: 03-06-2024 ambulatory HARLEEN BARBA [facility] Start: 03-04-2024 End: 03-06-2024 Subsequent hospital visit by physician [facility] Cat Scan Room [facility] CT Scan Comment on above: Encounter for other orthopedic aftercare; Weakness Start: 03-03-2024 End: 03-03-2024 Admission to same day surgery center Harleen Barba MD Work Phone: [facility] Comment on above: Aftercare following surgery of the musculoskeletal system (Primary Dx) Start: 03-03-2024 End: 03-07-2024 ambulatory Da Gaspar [facility] Start: 02-29-2024 End: 02-29-2024 Admission to same day surgery center Harleen Barba MD Work Phone: [facility] Comment on above: Aftercare following surgery of the musculoskeletal system (Primary Dx) Start: 02-29-2024 End: 03-04-2024 ambulatory Dk Jaclyn [facility] Start: 02-25-2024 End: 02-25-2024 Admission to same day surgery center Harleen Barba MD Work Phone: [facility] Comment on above: Aftercare following surgery of the musculoskeletal system (Primary Dx) Start: 02-25-2024 End: 02-29-2024 ambulatory Lissy Jacques [facility] Start: 02-22-2024 End: 02-22-2024 Admission to same day surgery center Harleen Barba MD Work Phone: [facility] Comment on above: Aftercare following surgery of the musculoskeletal system (Primary Dx) Start: 02-22-2024 End: 02-26-2024 ambulatory Da Gaspar [facility] Start: 02-19-2024 End: 02-19-2024 Admission to same day surgery center Harleen Barba MD Work Phone: [facility] Comment on above: Aftercare following surgery of the musculoskeletal system (Primary Dx) Start: 02-19-2024 End: 02-23-2024 ambulatory Lilly Ham [facility] Start: 02-18-2024 End: 02-18-2024 Admission to same day surgery center Harleen Barba MD Work Phone: [facility] Comment on above: Aftercare following surgery of the musculoskeletal system (Primary Dx) Start: 02-18-2024 End: 02-22-2024 ambulatory Lissy Jacques [facility] Start: 02-09-2024 End: 02-09-2024 Admission to same day surgery center Harleen Barba MD Work Phone: [facility] Comment on above: Aftercare following surgery of the musculoskeletal system Start: 02-09-2024 End: 02-13-2024 ambulatory Lissy Jacques PT [facility] Start: 01-25-2024 End: 01-25-2024 Transcribe Orders Harleen Barba MD Work Phone: [facility] Comment on above: Aftercare following surgery of the musculoskeletal system (Primary Dx) Start: 01-06-2024 End: 01-08-2024 amb[facility] Start: 01-06-2024 End: 01-08-2024 Subsequent hospital visit by physician [facility] Cat Scan Room [facility] CT Scan Comment on above: History of smoking g reater than 50 pack years; Personal history of tobacco use Start: 12-29-2023 End: 12-29-2023 Subsequent hospital visit by physician Tereso Fairchild CNP Work Phone: [facility] Comment on above: Hypercholesterolemia ; Screening for prostate cancer Start: 12-29-2023 End: 12-31-2023 ambulatory TERESO Lavon OROZCO [facility] Start: 12-24-2023 Encounter for preprocedural respiratory examination [facility] Start: 12-24-2023 End: 12-26-2023 Patient encounter status [facility] Work Phone: Start: 12-24-2023 End: 12-26-2023 ambulatory HARLEEN Salazar [facility] Start: 12-24-2023 End: 12-24-2023 Encounter for preprocedural laboratory examination [facility] Start: 12-24-2023 End: 12-26-2023 Subsequent hospital visit by physician [facility] Additional Xray At [facility] RESPIRATORY THERAPY Comment on above: Pre-op chest exam Start: 11-11-2023 End: 11-13-2023 ambulatory TERESO Lavon OROZCO [facility] Start: 11-11-2023 End: 11-13-2023 Subsequent hospital visit by physician [facility] Additional Xray At [facility] Radiology Comment on above: Acute right hip pain ; Primary osteoarthritis of right hip Start: 06-16-2023 End: 06-16-2023 ambulatory [facility] Start: 06-16-2023 End: 06-16-2023 Subsequent hospital visit by physician Cleopatra Sotelo MD Work Phone: [facility] Comment on above: Colon cancer screeni ng Start: 06-10-2023 End: 06-12-2023 Subsequent hospital visit by physician Violet Piña DO Work Phone: [facility] MRI Comment on above: Balance disorder; Unsteady gait Start: 06-10-2023 End: 06-12-2023 ambulatory VIOLET [facility] Start: 06-02-2023 End: 06-02-2023 ambulatory VIOLET PI[facility]A [facility] Start: 05-22-2023 Bamboo flowsheet Caitie baptiste PA Work Phone: [facility] Start: 05-22-2023 Bamboo flowsheet Caitie baptiste PA Work Phone: [facility] Start: 05-22-2023 End: 05-22-2023 Office outpatient visit 15 minutes Caitie Del Cid PA Work Phone: [facility] Comment on above: Melanocytic nevus of trunk (Primary Dx); Personal history of squamous cell carcinoma of skin; Actinic keratosis; Seborrheic keratosis Start: 05-06-2023 End: 05-08-2023 ambulatory TERESO Doll [facility] Start: 04-28-2023 End: 04-30-2023 ambulatory TERESO Doll [facility] Start: 04-20-2023 End: 04-20-2023 ambulatory [facility] Doll [facility] Start: 02-03-2022 End: 02-05-2022 Subsequent hospital visit by physician [facility] Nuclear Room [facility] Nuclear Medicine Comment on above: SOB (shortness of br eath) Arrived Start: 12-12-2021 End: 12-12-2021 Subsequent hospital visit by physician [facility] Echo Room [facility] ECHO Comment on above: Coronary artery calc ification seen on CT scan; Essential hypertension; Centrilobular emphysema (HCC); Smoker; History of smoking greater than 50 pack years Start: 11-28-2021 End: 11-30-2021 Subsequent hospital visit by physician [facility] Cat Scan Room [facility] CT Scan Comment on above: Personal history of nicotine dependence Start: 10-25-2021 End: 10-25-2021 Subsequent hospital visit by physician Tereso Orozco APRN - PHYSICAL EDUCATION AIDE Work Phone: [facility] Comment on above: Mixed hyperlipidemia ; Screening for thyroid disorder; Centrilobular emphysema (HCC); Essential hypertension Start: 03-01-2021 End: 03-01-2021 Emergency department patient visit Jadon Byrnes MD Work Phone: [facility] ED Comment on above: Olecranon bursitis o f left elbow (Primary Dx) Start: 02-13-2021 End: 02-13-2021 Subsequent hospital visit by physician Tereso Orozco APRN - PHYSICAL EDUCATION AIDE Work Phone: [facility] Comment on above: Essential hypertensi on; Centrilobular emphysema (HCC); Screening for thyroid disorder; Mixed hyperlipidemia; Prostate cancer screening Start: 11-22-2020 End: 2020 Subsequent hospital visit by physician [facility] Cat Scan Room [facility] CT Scan Comment on above: Personal history of nicotine dependence Start: 08-07-2020 End: 08-07-2020 Subsequent hospital visit by physician Tereso Orozco APRN - PHYSICAL EDUCATION AIDE Work Phone: [facility] Comment on above: Mixed hyperlipidemia ; Essential hypertension Start: 05-19-2020 End: 05-19-2020 Orders Only Lola Bejarano Work Phone: [facility] Start: 12-22-2019 End: 12-22-2019 Patient encounter procedure RONNIE KING [facility] Start: 12-22-2019 End: 12-22-2019 Subsequent hospital visit by physician Ronnie King Work Phone: [facility] Comment on above: Postoperative pain ( Primary Dx) Start: 12-22-2019 End: 12-25-2019 Patient encounter procedure RONNIE KING [facility] Start: 12-22-2019 End: 12-24-2019 Subsequent hospital visit by physician Ronnie ShirleyCezar Christine Work Phone: [facility] Radiology Comment on above: Pain Start: 12-15-2019 End: 12-20-2019 Patient encounter procedure RONNIE KING [facility] Start: 12-15-2019 End: 12-19-2019 Subsequent hospital visit by physician Lenard Lai [address] Pre-Admission Testing Start: 11-30-2019 End: 11-30-2019 Subsequent hospital visit by physician Tereso [facility] Comment on above: Essential hypertensi on; Hyperlipidemia, unspecified hyperlipidemia type; Pre-operative clearance Start: 11-17-2019 End: 11-19-2019 Subsequent hospital visit by physician [facility] Mri Scanner [facility] Comment on above: Lumbosacral radiculo moncho at L5; Foot drop, right Start: 11-14-2019 End: 11-16-2019 Subsequent hospital visit by physician [facility] Cat Scan Room [facility] CT Scan Comment on above: Personal history of tobacco use; Cigarette nicotine dependence, uncomplicated Start: 12-20-2018 End: 12-20-2018 Subsequent hospital visit by physician Dario Smith Work Phone: [facility] Periop Start: 12-17-2018 End: 12-17-2018 Patient encounter procedure Dariohenri Smith Work Phone: [facility] Preadmission Testing Comment on above: Preop testing (Prima ry Dx) Start: 11-25-2018 End: 11-27-2018 Subsequent hospital visit by physician [facility] Ultrasound Room [facility] Ultrasound Comment on above: Essential hypertensi on; Encounter for abdominal aortic aneurysm (AAA) screening; Smoker Start: 11-27-2016 End: 11-27-2016 Ambulatory Dario Smith Facility:[facility] Procedures Date Procedure Procedure Detail Performing Clinician Start: 05-23-2024 CRYOTHERAPY SKIN LESION Caitie VILLA Work Phone: Start: 12-29-2023 Lipid panel Tereso balderas EMERGENCY MEDICINE - PHYSICAL EDUCATION AIDE Work Phone: Start: 12-29-2023 PSA screening Tereso de la fuente EMERGENCY MEDICINE - PHYSICAL EDUCATION AIDE Work Phone: Start: 12-24-2023 Ecg routine ecg w/le ast 12 lds w/i&r Harleen Barba MD Work Phone: Start: 12-24-2023 Radiologic exam ches t 2 views Harleen Barba MD Work Phone: Start: 11-11-2023 Radex hip unilateral with pelvis 2-3 views Tereso Orozco EMERGENCY MEDICINE - PHYSICAL EDUCATION AIDE Work Phone: Start: 06-16-2023 Colonoscopy Cleopatra stephenson MD Work Phone: Start: 06-10-2023 Mri spinal canal lum bar w/o & w/contr matrl Violet Ayana DO Work Phone: Start: 06-10-2023 Assay of urea nitrog en quantitative Tony Ritchie Awad MD Work Phone: Start: 05-22-2023 CRYOTHERAPY SKIN LESION Caitie VILLA Work Phone: Start: 02-03-2022 Myocardial spect mul tiple studies Gunner Pena MD Work Phone: Start: 10-25-2021 Comprehensive metabo lic panel Tereso Orozco EMERGENCY MEDICINE - PHYSICAL EDUCATION AIDE Work Phone: Start: 10-25-2021 Lipid panel Tereso balderas EMERGENCY MEDICINE - PHYSICAL EDUCATION AIDE Work Phone: Start: 10-25-2021 PATIENT FASTING? Tereso Orozco EMERGENCY MEDICINE - PHYSICAL EDUCATION AIDE Work Phone: Start: 02-14-2021 PSA screening Tereso samuels EMERGENCY MEDICINE - PHYSICAL EDUCATION AIDE Work Phone: Comment on above: The David ECLIA as say is used. Results obtained with different assay methods cannot be used interchangeably. Start: 02-13-2021 Comprehensive metabo lic panel Tereso Orozco EMERGENCY MEDICINE - PHYSICAL EDUCATION AIDE Work Phone: Start: 02-13-2021 Lipid panel Tereso Eubanks ebs EMERGENCY MEDICINE - PHYSICAL EDUCATION AIDE Work Phone: Start: 02-13-2021 PATIENT FASTING? Tereso Orozco EMERGENCY MEDICINE - PHYSICAL EDUCATION AIDE Work Phone: Start: 08-07-2020 Comprehensive metabo lic panel Tereso Orozco EMERGENCY MEDICINE - PHYSICAL EDUCATION AIDE Work Phone: Start: 08-07-2020 Lipid panel Tereso Eubanks [employer] EMERGENCY MEDICINE - PHYSICAL EDUCATION AIDE Work Phone: Start: 08-07-2020 PATIENT FASTING? Tereso Orozco EMERGENCY MEDICINE - PHYSICAL EDUCATION AIDE Work Phone: Start: 12-22-2019 INCENTIVE SPIROMETRY RT RONNIE CHRISTINE Start: 12-22-2019 INCENTIVE SPIROMETRY RT RONNIE CHRISTINE Start: 12-22-2019 DISCHARGE PATIENT RONNIE YO O Start: 12-22-2019 Level iv surg pathol ogy gross&microscopic exam RONNIE CHRISTINE Start: 12-22-2019 INCENTIVE SPIROMETRY RT RONNIE CHRISTINE Start: 12-22-2019 FLUORO FOR SURGICAL PROCEDURES RONNIE CHRISTINE Start: 12-22-2019 Continuous pulse oximetry RONNIE CHRISTINE Start: 12-22-2019 INITIATE OXYGEN THER APY PROTOCOL RONNIE CHRISTINE Start: 12-22-2019 ASSESS RONNIE CHRISTINE Start: 12-22-2019 BEDREST RONNIE CHRISTINE Start: 12-22-2019 ENCOURAGE DEEP BREAT NORMA AND COUGHING RONNIE CHRISTINE Start: 12-22-2019 INCENTIVE SPIROMETRY RT RONNIE CHRISTINE Start: 12-22-2019 NEURO/VASCULAR CHECKS B O CHRISTINE Start: 12-22-2019 NOTIFY PHYSICIAN (SPECIFY) RONNIE CHRISTINE Start: 12-22-2019 NURSING COMMUNICATION B O CHRISTINE Start: 12-22-2019 VITAL SIGNS RONNIE CHRISTINE Start: 12-22-2019 Fluoroscopy during operation Ronnie H. Christine Work Phone: Start: 12-22-2019 DIET NPO, NOW RNONIE CHRISTINE Start: 12-22-2019 GRADUAL COMPRESSION STOCKINGS (GLENN) RONNIE CHRISTINE Start: 12-22-2019 PLACE INTERMITTENT PNEUMATIC COMPRESSION DEVICE RONNIE CHRISTINE Start: 12-22-2019 PULSE OXIMETRY SPOT CHECK RONNIE CHRISTINE Start: 12-22-2019 VITAL SIGNS RONNIE CHRISTINE Start: 12-22-2019 INITIATE OXYGEN THER APY PROTOCOL RONNIE CHRISTINE Start: 12-22-2019 NOTIFY PHYSICIAN (SPECIFY) RONNIE CHRISTINE Start: 12-15-2019 COVID-19 AMBULATORY RONNIE CHRISTINE Start: 12-15-2019 COVID-19 AMBULATORY Pat keny Gibbs Mathias Start: 12-15-2019 Basic metabolic pane l calcium total RONNIE CHRISTINE Start: 12-15-2019 Prothrombin time RONNIE CHRISTINE Start: 12-15-2019 TYPE AND SCREEN RONNIE CHRISTINE Start: 12-15-2019 COVID-19 RONNIE CHRISTINE Start: 12-15-2019 Antibody screen [facility] Start: 12-15-2019 Basic metabolic pane l calcium total Annetta K Stew Start: 12-15-2019 Blood typing serologic abo Annetta Gibbs Stew Start: 12-15-2019 Prothrombin time Sanju ia Bernie Stew Start: 11-30-2019 Assay of thyroid stimulating hormone tsh Gunner Pena Work Phone: Start: 11-30-2019 Blood count complete auto&auto difrntl wbc Gunner Pena Work Phone: Start: 11-17-2019 Mri spinal canal lum bar w/o contrast material Tereso Orozco Work Phone: Start: 11-14-2019 Ldct for lung ca screen Tereso Orozco Work Phone: Start: 12-20-2018 End: 12-20-2018 Colonoscopy Dario Smith Work Phone: Start: 12-17-2018 SCAN OTHER ORDERS Provi andreia Not In System Start: 11-25-2018 Us abdominal aorta r eal time screen study aaa Tereso Orozco Work Phone: Plan of Treatment Date Care Activity Detail Author Start: 01-14-2031 DTaP/Tdap/Td vaccine (4 - Td or Tdap) DTaP/Tdap/Td vaccine (4 - Td or Tdap) [facility] Start: 01-14-2031 Tetanus vaccination Tetanus: Every 1 0yrs [facility] Start: 10-31-2030 DTaP/Tdap/Td vaccine (3 - Td or Tdap) DTaP/Tdap/Td vaccine (3 - Td or Tdap) [facility] [employer] Work Phone: Start: 12-20-2028 Screening for malign ant neoplasm of colon [facility] Start: 06-15-2026 Screening for malign ant neoplasm of colon [facility] Start: 05-29-2025 End: 05-29-2025 Patient encounter procedure 05/29/2025 11:00 AM EST Office Visit [facility] [address] [place] [address] Caitie Del Cid PA [address] [place] [address] [facility] Start: 03-24-2025 Medicare Annual Well ness (AWV) Medicare Annual Wellness (AWV) [facility] Start: 03-24-2025 Medicare Wellness Visit Medicare Wel lness Visit [facility] Start: 01-05-2025 Screening for malign ant neoplasm of lung Lung Cancer Screening &/or Counseling [facility] Start: 12-28-2024 Lipid panel Lipids [facility] Start: 05-23-2024 End: 05-23-2024 Patient encounter procedure 05/23/2024 11:30 AM EST Office Visit [facility] [address] [place] [address] Caitie Del Cid PA [address] [place] [address] [facility] Start: 05-04-2024 End: 05-04-2024 Patient encounter procedure 05/04/2024 10:15 AM EST Treatment [facility] Outpatient Physical Therapy [address] [place] [address] Harleen Barba MD [address] [place] [address] [place] [address] [facility] Start: 05-02-2024 End: 05-02-2024 Patient encounter procedure 05/02/2024 10:15 AM [facility] Outpatient Physical Therapy [address] [place] [id number] Harleen Barba MD [address] [place] [address] [place] [address] Sobia Diana [facility] Outpatient Physical Therapy Start: 04-27-2024 End: 04-27-2024 Patient encounter procedure 04/27/2024 10:15 AM EST Treatment [facility] Therapy [address] [place] [address] Harleen Barba MD [address] [place] [address] [place] [address] Sobia Diana [facility] Outpatient Physical Therapy Start: 04-25-2024 End: 04-25-2024 Patient encounter procedure [facility] Start: 04-20-2024 Depression Screen Depression Screen [facility] Start: 04-20-2024 End: 04-20-2024 Patient encounter procedure 04/20/2024 12:30 PM EST [facility] Outpatient Physical Therapy [address] [place] [address] Harleen Barba MD [facility] [place] [address] [place] [address] Sobia Diana [facility] Outpatient Physical Therapy Start: 04-18-2024 End: 04-18-2024 Patient encounter procedure 04/18/2024 12:30 PM EST [facility] Outpatient Physical Therapy [address] [place] [address] Harleen Barba MD [address] [place] [address] [place] [address] Da Gaspar, [facility] Outpatient Physical Therapy Start: 04-15-2024 End: 04-15-2024 Patient encounter procedure 04/15/2024 10:15 AM EST [facility] Outpatient Physical Therapy [address] [place] [address] Harleen Barba MD [address] [place] [address] [place] [address] Dk Anaya, [facility] Outpatient Physical Therapy Start: 04-12-2024 End: 04-12-2024 Patient encounter procedure 04/12/2024 1:15 PM EST Treatment [facility] Physical Therapy [address] [place] [address] Harleen Barba MD [address] [place] [address] [place] [address] Dk Anaya PTA Discharge Disposition: Home [facility]patient Physical Therapy Start: 04-08-2024 End: 04-08-2024 Patient encounter procedure 04/08/2024 1:15 PM EST Treatment [facility] Therapy [address] [place] [address] Harleen Barba MD [address] [place] [address] [place] [address] [facility] Start: 04-04-2024 End: 04-04-2024 Patient encounter procedure 04/04/2024 3:30 PM EST Treatment [facility] Therapy [address] [place] [address] Harleen Barba MD [address] [place] [address] [place] [address] Da Gaspar, MARITA [facility] Out[facility] Therapy Start: 03-31-2024 End: 03-31-2024 Patient encounter procedure 03/31/2024 11:00 AM EST Treatment [facility] Physical Therapy [address] [place] [address] Harleen Barba MD [address] [place] [address] [place] [address] [facility] Start: 03-29-2024 End: 03-29-2024 Patient encounter procedure 03/29/2024 4:15 PM EST Treatment [facility] Physical Therapy [address] [place] [address] Harelen Barba MD [address] [place] [address] [place] [address] Sobia Diana PTA Discharge Disposition: Home [facility] Start: 03-25-2024 End: 03-25-2024 Patient encounter procedure 03/25/2024 12:30 PM EST Treatment [facility] Outpatient Physical Therapy [address] [place] [address] Harleen Barba MD [address] [place] [address] [place] [address] Sobia Diana PTA [facility] Start: 03-21-2024 End: 03-21-2024 Patient encounter procedure 03/21/2024 12:30 PM EST Treatment [facility] Outpatient Physical Therapy [address] [place] [address] Harleen Barba MD [address] [place] [address] [place] [address] Sobia Diana PTA [facility] Start: 03-18-2024 End: 03-18-2024 Patient encounter procedure 03/18/2024 12:30 PM EST Treatment [facility] Physical Therapy [address] [place] [address] Harleen Barba MD [address] [place] [address] [place] [address] Da Gaspar [facility] Outpatient Physical Therapy Start: 03-14-2024 End: 03-14-2024 Patient encounter procedure 03/14/2024 12:30 PM EST Treatment [facility] Physical Therapy [address] [place] [address] Harleen Barba MD [address] [place] [address] [place] [address] Da Gaspar [facility] Outpatient Physical Therapy Start: 03-14-2024 End: 03-14-2024 Patient encounter procedure 03/14/2024 10:20 AM EST Office Visit [facility] [address] [place] [address] Tereso Orozco, EMERGENCY MEDICINE - [place] [address] Yearly AWV [facility] Comment on above: Yearly AWV Start: 03-11-2024 End: 03-11-2024 Patient encounter procedure [facility] Therapy Start: 03-07-2024 End: 03-07-2024 Patient encounter procedure 03/07/2024 12:30 PM EST Treatment [facility] Therapy [address] [place] [phone] Harleen Barba MD [address] [place] [address] [place] [address] Da Gaspar [facility] Outpatient Physical Therapy Start: 03-03-2024 End: 03-03-2024 Patient encounter procedure 03/03/2024 12:30 PM EST Treatment [facility] Therapy [address] [place] [phone] Harleen Barba MD [address] [place] [address] [place] [address] Da Gaspar [facility] Outpatient Physical Therapy Start: 02-29-2024 End: 02-29-2024 Patient encounter procedure 02/29/2024 12:30 PM EST Treatment [facility] Therapy [address] [place] [address] Harleen Barba MD [address] [place] [address] [place] [address] Da Gaspar [facility] Outpatient Physical Therapy Start: 02-25-2024 End: 02-25-2024 Patient encounter procedure 02/25/2024 12:30 PM EST Treatment [facility] Physical Therapy [address] [place] [phone] Harleen Barba MD [address] [place] [address] [place] [address] [facility] Start: 02-22-2024 End: 02-22-2024 Patient encounter procedure 02/22/2024 12:30 PM EST Treatment [facility] Physical Therapy [address] [place] [address] Harleen Barba MD [address] [place] [address] [place] [address] Da Gaspar, [facility] Outpatient Physical Therapy Start: 02-19-2024 End: 02-19-2024 Patient encounter procedure 02/19/2024 12:30 PM EST [facility] Outpatient Physical Therapy [address] [place] [address] Harleen Barba MD [address] [place] [address] [place] [address] Da Gaspar, [facility] Outpatient Physical Therapy Start: 12-29-2023 End: 12-29-2023 Patient encounter procedure 12/29/2023 11:00 AM EDT Appointment [facility]iology [address] [place] [address] Radiologist, [facility] MEDIA/11am time ok with Shaina [facility] Radiology Comment on above: MEDIA/11am time ok w [facility] Shaina Start: 12-28-2023 End: 12-28-2023 Patient encounter procedure 12/28/2023 2:00 PM EDT [facility] [address] [place] [address] Tereso Orozco, EMERGENCY MEDICINE - PHYSICAL EDUCATION AIDE [place] [id number] january 11, 2024 / [employer] [facility] Comment on above: january 11, 2024 / [employer] Start: 12-13-2023 COVID-19 Vaccine ( season) COVID-19 Vaccine ( season) [facility] Start: 12-13-2023 COVID-19 Vaccine ( season) COVID-19 Vaccine ( season) [facility] Start: 12-13-2023 COVID-19 Vaccine ( season) COVID-19 Vaccine ( season) [facility] Start: 12-13-2023 Influenza vaccination Influenza Vacc ine (#1) [facility] Start: 12-06-2023 Screening for malign ant neoplasm of lung [facility] Start: 11-12-2023 Influenza vaccination Flu vaccine (# 1) [facility] Start: 10-29-2023 Lipid screen Lipid screen [facility] [place] Start: 10-23-2023 Lipid panel Lipids [facility] Start: 06-16-2023 End: 06-16-2023 Colonoscopy flx dx w/collj spec when pfrmd COLORECTAL CANCER SCREENING, NOT HIGH RISK Colon cancer screening 06/16/2023 9:29 AM EST [facility] Start: 06-16-2023 End: 06-16-2023 Admission to same day surgery center 06/16/2023 8:28 AM EST - 06/16/2023 8:58 AM EST Surgery [facility] [address] [place] [address] Cleopatra Sotelo MD [address] [place] [address] COLONOSCOPY [facility] Comment on above: COLONOSCOPY Start: 06-16-2023 End: 06-16-2023 Anesthesia consultation 06/16/2023 8:28 AM EST Anesthesia Event [facility] [address] [place] [address] Abhishek Bennett, EMERGENCY MEDICINE - DIE POLISHER [address] [place] [address] [facility] Start: 06-16-2023 End: 06-16-2023 Colonoscopy flx dx w/collj spec when pfrmd COLORECTAL CANCER SCREENING, NOT HIGH RISK Colon cancer screening 06/16/2023 8:28 AM EST [facility] Start: 06-16-2023 Subsequent hospital visit by physician 06/16/2023 8:28 AM EST Hospital Encounter [facility] [address] [place] [address] Cleopatra Sotelo MD [address] [place] [address] [facility] Start: 04-26-2023 Annual Wellness Visi t (Medicare) Annual Wellness Visit (Medicare) [facility] [employer] Start: 04-25-2023 Medicare Wellness Visit Medicare Wel lness Visit [facility] Start: 12-12-2022 COVID-19 Vaccine ( season) COVID-19 Vaccine ( season) [facility] [employer] Start: 12-12-2022 Influenza vaccination Influenza Vacc ine (#1) [facility] Start: 11-28-2022 Screening for malign ant neoplasm of lung Low dose CT lung screening [facility] [employer] Start: 11-23-2022 Respiratory Syncytia l Virus (RSV) or age 60 yrs+ (1 - 1-dose 75+ series) Respiratory Syncytial Virus (RSV) or age 60 yrs+ (1 - 1-dose 75+ series) [facility] [employer] Start: 11-23-2022 Respiratory Syncytia l Virus Immunization: Risk, 60-74 Risk, or 75+ (1 - 1-dose 75+ series) Respiratory Syncytial Virus Immunization: Risk, 60-74 Risk, or 75+ (1 - 1-dose 75+ series) [facility] Start: 11-11-2022 Influenza vaccination Flu vaccine (# 1) [facility] [employer] Start: 10-25-2022 Lipid panel Lipids [facility] [employer] Start: 10-22-2022 Depression Screen Depression Screen [facility] [employer] Start: 04-25-2022 End: 04-25-2022 Patient encounter procedure 04/25/2022 Office Visit Primary Care Tereso Orozco, EMERGENCY MEDICINE - PHYSICAL EDUCATION AIDE [address] [place] [address] [facility] Start: 02-20-2022 Annual Wellness Visi t (AWV) Annual Wellness Visit (AWV) [facility] Start: 02-13-2022 Lipid panel Lipid screen [facility] Start: 12-20-2021 Screening for malign ant neoplasm of colon [facility] Start: 12-12-2021 Influenza vaccination Flu vaccine (# 1) [facility] Start: 11-27-2021 Screening for malign ant neoplasm of lung Low dose CT lung screening [facility] Start: 11-11-2021 Influenza vaccination Flu vaccine (# 1) [facility] Start: 08-20-2021 End: 08-20-2021 Patient encounter procedure 08/20/2021 Office Visit Primary Care Tereso Orozco, EMERGENCY MEDICINE - PHYSICAL EDUCATION AIDE [address] [place] [address] [facility] Start: 08-07-2021 Lipid panel Lipid screen [facility] Work Phone: Start: 03-01-2021 End: 03-01-2021 Patient encounter procedure 03/01/2021 Office Visit Family Medicine Dk Sanabria, EMERGENCY MEDICINE - PHYSICAL EDUCATION AIDE [address] [place] [address] [facility] Start: 02-19-2021 End: 02-19-2021 Patient encounter procedure 02/19/2021 Office Visit Primary Care Tereso Orozco, EMERGENCY MEDICINE - PHYSICAL EDUCATION AIDE [address] [place] [address] [phone] [facility] Start: 02-17-2021 Annual Wellness Visi t (AWV) Annual Wellness Visit (AWV) [place] Phone: Start: 12-24-2020 COVID-19 Vaccine (3 - Booster for Pfizer series) COVID-19 Vaccine (3 - Booster for Pfizer series) [facility] Start: 12-24-2020 COVID-19 Vaccine (3 - Pfizer booster) COVID-19 Vaccine (3 - Pfizer booster) [facility] Work Phone: Start: 12-12-2020 Influenza vaccination [facility] Work Phone: Start: 11-23-2020 COVID-19 Vaccine (3 - Booster for Pfizer series) COVID-19 Vaccine (3 - Booster for Pfizer series) [facility] Start: 11-13-2020 Lipid panel Lipid screen [place] Start: 11-13-2020 Screening for malign ant neoplasm of lung Low dose CT lung screening [place], [place] Start: 10-05-2020 End: 10-05-2020 Patient encounter procedure 10/05/2020 Office Visit Neurosurgery Ronnie King MD [address], [address] [place] [address] [employer] Start: 08-18-2020 COVID-19 Vaccine (3 - Booster for Pfizer series) COVID-19 Vaccine (3 - Booster for Pfizer series) [facility] Start: 08-17-2020 End: 08-17-2020 Patient encounter procedure 08/17/2020 Office Visit Primary Care Tereso Orozco, EMERGENCY MEDICINE - PHYSICAL EDUCATION AIDE [address] [place] [address] [phone] [facility] Start: 02-17-2020 End: 02-17-2020 Office Visit 02/17/2020 Office Visit Primary Care Tereso Orozco, EMERGENCY MEDICINE - PHYSICAL EDUCATION AIDE [address] [place] [address] [phone] [facility] Start: 01-06-2020 End: 01-06-2020 Office Visit 01/06/2020 Office Visit Neurosurgery Ronnie King MD [address], [address] [place], [place] [id number] [employer] Start: 12-22-2019 End: 12-22-2019 Hospital Encounter [facility] Comment on above: L 3-4, L 4-5, L5-S1 DECOMPRESSON FORAMINOTOMIES 1 1/2 HOURS/ 1 C-ARM 2ND CASE Start: 12-13-2019 Influenza vaccination Flu vaccine (# 1) [place] Start: 12-13-2019 Influenza vaccinatio n given Sequential Influenza Vaccine (#1) [facility] Start: 12-02-2019 End: 12-02-2019 Office Visit 12/02/2019 Office Visit Neurosurgery Ronnie King MD [address], [address] [place] [address] [phone] [employer] Start: 11-21-2019 End: 11-21-2019 Office Visit 11/21/2019 Office Visit Neurosurgery Ronnie King MD [address], [address] [place] [address] [phone] [employer] Start: 11-17-2019 End: 11-17-2019 Appointment 11/17/2019 Appointment Radiology [facility] Start: 10-12-[address] lung screening Low dose CT lung screening [place], [place] Start: 05-02-2019 DTaP/Tdap/Td vaccine (2 - Tdap) DTaP/Tdap/Td vaccine (2 - Tdap) [place] Start: 12-20-2018 End: 12-20-2018 Hospital Encounter [facility] Comment on above: COLONOSCOPY Start: 12-12-2018 Influenza vaccination Flu vaccine (# 1) [place] Start: 12-12-2018 Influenza vaccinatio n given SEQUENTIAL INFLUENZA VACCINE (#1) [facility] Start: 11-27-2018 Colon cancer screen colonoscopy Colon cancer screen colonoscopy [place] Start: 09-29-2018 Annual Wellness Visi t (AWV) Annual Wellness Visit (AWV) [place] Start: 12-20-2016 Screening for malign ant neoplasm of colon FIT/FOBT: Average risk [facility] Start: 02-15-2014 A1C test (Diabetic o r Prediabetic) A1C test (Diabetic or Prediabetic) [place] Start: 02-15-2014 HbA1c (Bld) [Mass fraction] A1C test (Diabetic or Prediabetic) [place] Start: 02-15-2014 Hemoglobin A1c measurement A1C test (Diabetic or Prediabetic) [facility] Start: 11-23-2012 Fall risk assessment Falls Risk Asse ssment [facility] Start: 11-23-2012 Pneumococcal vaccination PNEUM OCOCCAL VACCINE AGE 65+ (1 of 2 - PCV13) [facility] Start: 11-23-2010 Annual Wellness Visi t (AWV) Annual Wellness Visit (AWV) [place] Start: 2007 Respiratory Syncytia l Virus (RSV) or age 60 yrs+ (1 - 1-dose 60+ series) Respiratory Syncytial Virus (RSV) or age 60 yrs+ (1 - 1-dose 60+ series) [facility] Start: 11-23-1997 Administration of he rpes zoster vaccine Zoster Vaccines (1 of 2) [facility] Start: 11-23-1997 Screening for malign ant neoplasm of colon [facility] Start: 11-23-1997 Shingles Vaccine (1 of 2) Shingles Vaccine (1 of 2) [facility] Start: 11-23-1992 Screening for malign ant neoplasm of colon [facility] Start: 11-23-1965 Hepatitis C antibody , confirmatory test Hepatitis C Screening [facility] Start: 11-23-1965 Hepatitis C screening Hepatitis C Sc reening [facility] Start: 1963 COVID-19 Vaccine (1 of 2) COVID-19 Vaccine (1 of 2) [facility] Start: 1963 COVID-19 Vaccine (1) COVID-19 Vaccin e (1) [facility] Work Phone: Start: 1959 Adolescent depressio n screening assessment Depression Screening (PHQ9) [facility] Start: 1959 Depression screening using PHQ-9 (Patient Health Questionnaire 9) score Depression Screening/Follow-Up (PHQ-2/9) [facility] Start: 11-23-1950 History and physical examination, annual for health maintenance Wellness Visit [facility] Start: 1947 Fall risk assessment Falls Risk Asse ssment [facility] Start: 1945 Hepatitis C antibody , confirmatory test HEPATITIS C SCREENING [facility] Start: 1947 Physical therapy management PT Plan of Care [facility] Start: 1945 Prostate specific antigen measurement PSA Level [facility] Start: 1945 Screening for malign ant neoplasm of colon [facility] Start: 1945 Screening for malign ant neoplasm of lung Low-dose CT Lung Cancer Screen [facility] Start: 1945 Tetanus vaccination [facility] Start: 1945 US scan of abdominal aorta Abdominal Aortic Ultrasound [facility] End: 12-18-2019 12 lead ECG ECG 12 Lead ECG Routine Preop testing 1 Occurrences starting 12/17/2018 until 12/18/2019 [facility] Comment on above: 1 Occurrences starti ng 12/17/2018 until 12/18/2019 End: 03-01-2021 Body fluid cell count with differential [email or web address] Phone: Comment on above: One Time for 1 Occur rences starting 03/01/2021 until 03/01/2021 End: 12-15-2019 COVID-19 COVID-19 Lab Routine One Time for 1 Occurrences starting 12/15/2019 until 12/15/2019 [facility] [place] Comment on above: One Time for 1 Occur rences starting 12/15/2019 until 12/15/2019 End: 01-06-2024 CT Chest for screening [facility] Comment on above: 1 Occurrences starti ng 01/06/2024 until 01/06/2024 End: 03-04-2024 CT Lumbar spine WO contrast [facility] [employer] Phone: Comment on above: 1 Occurrences starti ng 03/04/2024 until 03/04/2024 End: 11-22-2020 CT lung screen [Initial/Annual] CT lung screen [Initial/Annual] Imaging Routine Personal history of nicotine dependence 1 Occurrences starting 11/22/2020 until 11/22/2020 [email or web address] Phone: Comment on above: 1 Occurrences starti ng 11/22/2020 until 11/22/2020 End: 11-28-2021 CT lung screen [Initial/Annual] [employer] Phone: Comment on above: 1 Occurrences starti ng 11/28/2021 until 11/28/2021 End: 03-01-2021 Culture, Body Fluid [email or web address] Phone: Comment on above: One Time for 1 Occur rences starting 03/01/2021 until 03/01/2021 End: 12-12-2021 Echocardiogram complete Echocardiogram complete Echocardiography Routine Coronary artery calcification seen on CT scan Essential hypertension Centrilobular emphysema (HCC) Smoker History of smoking greater than 50 pack years 1 Occurrences starting 12/12/2021 until 12/12/2021 [employer] Phone: Comment on above: 1 Occurrences starti ng 12/12/2021 until 12/12/2021 EKG 12 Lead EKG 12 Lead ECG Routine Essential hypertension Hyperlipidemia, unspecified hyperlipidemia type Pre-operative clearance 11/30/2019 1:59 PM EDT [employer] EKG 12 Lead EKG 12 Lead ECG Routine 12/24/2023 4:09 PM EDT [employer] Phone: End: 12-22-2019 Intermittent pulse oximetry Pulse Oximetry Spot Check Respiratory Care Routine One Time for 1 Occurrences starting 12/22/2019 until 12/22/2019 [employer] Comment on above: One Time for 1 Occur rences starting 12/22/2019 until 12/22/2019 End: 03-04-2024 MR Lumbar spine WO contrast [employer] Phone: Comment on above: 1 Occurrences starti ng 03/04/2024 until 03/04/2024 Oxygen therapy [[facility] Data Set] Initiate Oxygen Therapy Protocol Respiratory Care Routine Daily until discontinued starting 12/22/2019 [employer] Comment on above: Daily until disconti nued starting 12/22/2019 Phase I & II - meter ed glucose Phase I & II - metered glucose Point of Care Testing Routine As Needed until discontinued starting 12/22/2019 [employer] Comment on above: As Needed until disc ontinued starting 12/22/2019 Procedure on tissue specimen Tissue Exam Pathology and Cytology STAT Once for 1 Occurrences starting 12/20/2018 [facility] Comment on above: Once for 1 Occurrenc es starting 12/20/2018 Spirometry panel Incentive samantha metry Respiratory Care Routine Every 2hr while awake until discontinued starting 12/22/2019 [facility] Comment on above: Every 2hr while awak e until discontinued starting 12/22/2019 End: 02-03-2022 Stress test, lexiscan Stress test, lexiscan Cardiac Services Routine SOB (shortness of breath) 1 Occurrences starting 02/03/2022 until 02/03/2022 [facility] Work Phone: Comment on above: 1 Occurrences starti ng 02/03/2022 until 02/03/2022 Surgical Pathology Surgical Path ology Lab Routine Release Upon Ordering for 1 Occurrences starting 12/22/2019 [facility] [place] Comment on above: Release Upon Orderin g for 1 Occurrences starting 12/22/2019 Surgical Pathology Surgical Path ology Lab Routine Colon cancer screening Release Upon Ordering for 1 Occurrences starting 06/16/2023 [facility] Work Phone: Comment on above: Release Upon Orderin g for 1 Occurrences starting 06/16/2023 Immunizations Immunization Date Immunization Notes Care Provider R[facility] 12-28-2023 Seasonal trivalent influenza vaccine, adjuvanted, preservative free Tereso Englewood EMERGENCY MEDICINE - PHYSICAL EDUCATION AIDE Work Phone: [facility] 03-02-2023 zoster vaccine recombinant Tereso Leeo EMERGENCY MEDICINE - PHYSICAL EDUCATION AIDE Work Phone: [facility] 12-05-2022 zoster vaccine recombinant Tereso Leeo EMERGENCY MEDICINE - PHYSICAL EDUCATION AIDE Work Phone: [facility] 04-25-2022 Influenza, FLUAD, (a ge 65 y+), Adjuvanted, 0.5mL Violet Ayana DO Work Phone: [facility] 04-25-2022 influenza virus vacc ine, unspecified formulation Caitie VILLA Work Phone: [facility] 02-19-2021 Influenza, Quadv, adjuvanted, 65 yrs +, IM, PF (Fluad) Jadon Byrnes MD Work Phone: [facility] Work Phone: 01-14-2021 tetanus toxoid, redu ioana diphtheria toxoid, and acellular pertussis vaccine, adsorbed Jadon Byrnes MD Work Phone: [facility] 10-31-2020 tetanus toxoid, redu ioana diphtheria toxoid, and acellular pertussis vaccine, adsorbed Jadon Byrnes MD Work Phone: [facility] Work Phone: 02-22-2020 Influenza, injectabl e, Madin Peoa Canine Kidney, preservative free, quadrivalent [facility] 01-16-2017 influenza, injectabl e, quadrivalent, preservative free [facility] [place] 01-16-2017 influenza virus vacc ine, unspecified formulation Harleen Barba MD Work Phone: [facility] 12-08-2014 pneumococcal conjuga te vaccine, 13 valent [facility] 03-11-2014 influenza virus vacc ine, whole virus [facility] 09-15-2013 pneumococcal polysaccharide vaccine, 23 valent [facility] [place] 05-02-2009 diphtheria, tetanus toxoids and acellular pertussis vaccine [facility] 06-06-1996 hepatitis B vaccine, pediatric or pediatric/adolescent dosage Tereso Englewood EMERGENCY MEDICINE [employer] [facility] Work Phone: [facility] 12-24-1995 hepatitis B vaccine, pediatric or pediatric/adolescent dosage Tereso Ernesto [facility] Work Phone: [facility] 09-22-1994 hepatitis B vaccine, pediatric or pediatric/adolescent dosage [place] Ernesto [facility] Work Phone: [facility] Payers Date Payer Category Payer Miscellaneous or Other COMMERCIA L JULIANN LAUGHLIN [id number] 2014 Private Health [place] [id number] [id number] .[id number] 2014 Unknown [id number] 1.2.840.245370.1.13.385.2 .7.3.249894.315 2014 Unknown COMMERCIAL COMME RCIAL MISCELLANEOUS [id number] 2014-Present [id number] 1.2.840.088093.1.13.385.2 .7.3.575687.315 2014 Unknown 1.2.840.619613. 1.13.693.2 .7.3.011763.315 2014 Unknown [id number] 1.2.840.088928.1.13.239.2 .7.3.086632.315 2012 Medicare xxxxxxxxxxx 1.2.840.555790.1.13.385.2 .7.3.100448.315 2012 Medicare MEDICARE MEDICAR E PART A & B [id number] 2012-Present MD [id number] 1.2.840.800559.1.13.385.2 .7.3.427619.315 2012 Medicare 1.2.840.826961. 1.13.693.2 .7.3.926462.315 2012 Medicare [id number] 1.2.840.402984.1.13.239.2 .7.3.140502.315 1947 Unknown [id number] 2.16.840.1.087284.3.579.2 .182 1947 Unknown [id number] 2.16.840.1.415632.3.579.2 .182 1947 Unknown [id number] 2.16.840.1.542386.3.579.2 .182 1947 Unknown [id number] 2.16.840.1.020040.3.579.2 .174 1947 Unknown [id number] 2.16.840.1.455138.3.579.2 .174 1947 Unknown [id number] 2.16.840.1.009735.3.579.2 .174 1947 Unknown [id number] 2.16.840.1.704668.3.579.2 .174 1947 Unknown [id number] 2.16.840.1.580246.3.579.2 .174 1947 Unknown [id number] 2.16.840.1.368727.3.579.2 .174 1947 Unknown [id number] 2.16.840.1.577956.3.579.2 .174 1947 Unknown [id number] 2.16.840.1.313098.3.579.2 .174 1947 Unknown [id number] 2.16.840.1.070865.3.579.2 .174 1947 Unknown [id number] 2.16.840.1.314073.3.579.2 .174 1947 Unknown [id number] 2.16.840.1.232150.3.579.2 .174 1947 Unknown [id number] 2.16.840.1.297231.3.579.2 .174 1947 Unknown [id number] 2.16.840.1.326243.3.579.2 .174 1947 Unknown [id number] 2.16.840.1.658770.3.579.2 .174 1947 Unknown [id number] 2.16.840.1.641729.3.579.2 .174 1947 Unknown [id number] 2.16.840.1.484269.3.579.2 .1947 Unknown [id number] 2.16.840.1.007488.3.579.2 .174 1947 Unknown [id number] 2.16.840.1.993812.3.579.2 .1947 Unknown [id number] 2.16.840.1.582805.3.579.2 .1947 Unknown [id number] 2.16.840.1.277041.3.579.2 .174 1947 Unknown [id number] 2.16.840.1.848101.3.579.2 .1947 Unknown [id number] 2.16.840.1.548090.3.579.2 .1947 Unknown [id number] 2.16.840.1.430247.3.579.2 .1947 Unknown [id number] 2.16.840.1.792892.3.579.2 .1947 Unknown [id number] 2.16.840.1.531181.3.579.2 .1947 Unknown [id number] 2.16.840.1.431768.3.579.2 .1947 Unknown [id number] 2.16.840.1.802549.3.579.2 .1947 Unknown [id number] 2.16.840.1.503873.3.579.2 .903 1947 Unknown [id number] 2.16.840.1.308409.3.579.2 .1947 Unknown [id number] 2.16.840.1.506978.3.579.2 .1947 Unknown [id number] 2.16.840.1.346674.3.579.2 .1947 Unknown [id number] 2.16.840.1.292693.3.579.2 .1947 Unknown [id number] 2.16.840.1.587364.3.579.2 .1947 Unknown [id number] 2.16.840.1.112916.3.579.2 .1947 Unknown [id number] 2.840.1.024322.3.579.2 1947 Unknown [id number] 2.16840.1.562693.3.579.2 .1947 Unknown [id number] 2.840.1.966183.3.579.2 .1947 Unknown [id number] 2.16.840.1.404938.3.579.2 .1947 Unknown [id number] 2.16840.1.482350.3.579.2 .1947 Unknown [id number] 2.16.840.1.423258.3.579.2 .1947 Unknown [id number] 2.16.840.1.654232.3.579.2 .1947 Unknown [id number] 2.16.840.1.994876.3.579.2 .1947 Unknown [id number] 2.16.840.1.881230.3.579.2 .1947 Unknown [id number] 2.16.840.1.989492.3.579.2 .1259 Medicare [id number] Social History Date Type Detail Facility Start: 12-17-2018 End: 05-22-2023 Tobacco smoking status MAIS Current every day smoker [facility] History of tobacco use Cigarette Smoker [place] Start: 12-17-2018 End: 05-22-2023 Cigarettes smoked current (pack per day) - Reported [facility] Start: 12-17-2018 End: 05-02-2024 Alcohol intake Current drinker of alcohol (finding) [facility] Start: 12-17-2018 History SDOH Alcohol Frequency 4 [facility] Start: 12-17-2018 History SDOH Alcohol Std Drinks 2 [facility] Start: 12-17-2018 History SDOH Alcohol Binge 3 [facility] Start: 12-17-2018 Alcohol Comment 2 days per week on weekends [facility] Start: 1945 Sex Assigned At Not on file [place] Start: 10-27-2019 End: 05-22-2023 Tobacco use and exposure Never used [place] Exposure to SARS-CoV -2 (event) Not sure [place] Start: 12-15-2019 Alcohol Comment occassion [place] Start: 11-10-2018 End: 05-22-2023 Alcohol intake Yes [place] Start: 02-19-2021 History SDOH [facility] Work Phone: Start: 02-19-2021 History SDOH Food Worry 1 [facility] Work Phone: Tobacco smoking stat [facility] Tobacco smoking consumption unknown [facility] How often to you hav e a drink containing alcohol? 2-3 time sa week [facility] How many standard drinks containing alcohol do you have on a typical day? 1 or 2 [facility] How often do you hav e 6 or more drinks on 1 occasion? Never [facility] How hard is it for y ou to pay for the very basics like food, housing, medical care, and heating Not hard at all [facility] (I/We) worried brian er (my/our) food would run out before (I/we) got money to buy more. Never true [facility] At any time in the p ast 12 months, were you homeless or living in [facility] [including now]? No [facility] How hard is it for y ou to pay for the very basics like food, housing, medical care, and heating Not very hard [facility] Start: 12-17-2018 Gender identity Identifies as male gender (finding) [facility] Start: 12-17-2018 Sexual orientation Heterosexual (finding) [facility] Medical Equipment Procedure Code Equipment Code Equipment Origin al Text Equipment Identifier Dates Clip [employer] Del Sys 17 [id number] Cm Ergo Hndl Resol 360 Ultra - [id number] Start: 06-16-2023 Clinical Notes 05-22-2023 to 05-23-2024 Caitie Del Cid, PA - 05/23/2024 12:50 PM Lissy Gongora, PT - 05/04/2024 10:15 AM Sobia Redman, ENVIRONMENTAL MANAGER - 04/20/2024 12:30 PM Sondra Hargrove ENVIRONMENTAL MANAGER - 04/12/2024 1:15 PM EST Note Date & Type Note Facility 05-23-2024 History of Presen t illness Narrative Skin Check Location: Patient requests a skin examination from the waist up Dermatologic history: history of Actinic Keratosis, history of Squamous Cell Carcinoma Last visit: 1 year ago Established patient Lesions: Location: left hand, right cheek Duration: months Quality: denies pain, denies itch, denies bleeding Modifying factors: aggravated by picking, aggravated by shaving Associated symptoms: rough Treatments: none All pertinent medical history, medications, and allergies were reviewed. General Exam: alert, oriented to person, place, and time, normal affect, well appearing Accompanied by spouse , uses a cane A complete skin exam was offered, pt declined. Areas not examined despite medical recommendation: From the waist down Scalp, Examined Head, Face Examined Neck Examined Chest Examined Back Examined Abdomen Examined Right arm Examined Left arm Examined Hands Examined Digits,nails: Examined Lymphatics: Not examined 1. Seborrheic keratosis (3) Arms, Head - Anterior (Face), Trunk Stuck on verrucous, variably pigmented papules and plaques. Patient was counseled regarding these benign growths. Removal is normally not necessary, but they may be removed if they are symptomatic or for cosmetic reasons. 2. Actinic keratosis (7) Left Dorsal Hand, Left Hand - Posterior (3), Left [place], Right Dorsal Hand, Right Forearm - Posterior Erythematous scaly papules Patient was counseled regarding these sun-induced growths that can develop into squamous cell carcinoma if left untreated. Discussed treatment with cryotherapy. It was emphasized that any treated lesions that fail to resolve should be re-evaluated. Cryotherapy performed today; see procedure note Diagnosis: Actinic keratosis Indication: Precancerous Location: see skin exam Consent: Verbal consent was obtained and risks were discussed, including, but not limited to risks of scarring, darker or diet therapist pigmentary changes, recurrence, incomplete removal and infection. Method: Liquid nitrogen was used to treat the lesion(s) with two 5-10 second freeze-thaw cycles. Number of lesions treated: 7 Post-procedure instructions: Instructions were given orally and in writing. The office will be contacted if the lesion fails to resolve despite treatment, or if a side effect develops such as abnormal crusting, scabbing, redness or tenderness Cryotherapy, skin lesion - Left Dorsal Hand, Left Hand - Posterior (3), Left [place], Right Dorsal Hand, Right Forearm - Posterior 3. History of squamous cell carcinoma of skin 4. Melanocytic nevus of trunk Trunk Scattered benign appearing, regular brown to light brown melanocytic papules and macules with similar morphology Counseled regarding these benign growths. Rarely, a nevus can develop into malignant melanoma, so any changing nevi should be promptly re-evaluated. 5. Lentigines Torso - Posterior (Back) Scattered valentino macules in sun-exposed areas. The patient was informed that lentigines are benign pigmented lesions that occur on sun-exposed and sun-damaged skin. No treatment is necessary. Recommended regular use of broad spectrum sunscreen SPF 30 or higher Next Visit: 1 year documented in this encounter [facility] 05-04-2024 History of Presen t illness Narrative [facility] DAILY TREATMENT NOTE Today's Date 05/04/2024 Patient Name: Elizabeth LAUGHLINN: [id number] Date of : 1945 Current Visit #: 23 Authorized Visits: [id number] Case Name: back surgery History: Pre-Treatment Pain Scale: 2 Symptoms: stabilized Functional Diagnosis: 1. Aftercare following surgery of the musculoskeletal system Clinical Information: Subjective: Patient reports pain in leg does awaken him at nights. Objective Treatments: Physical Therapy Exercise Log - 05/04/24 1014 OTHER Precautions/Contraindications Low back surgery 01/13/24 Avoid excessive bending, twisting, lifting greater than 10# for 6 weeks post op, Back brace when up. Notes Visit 23: 10:13-11:00 Vitals Eval 02/08, 2x8 PN completed 03/11, cont POC, Recert 04/08 2x4 Therapeutic Exercise (96149) Intervention NuStep L5 x 5 min Parameters -- Intervention -- Parameters -- Intervention -- Parameters -- Intervention -- Parameters -- Parameters Access Code: [email or web address] URL: [email or web address] Date: 02/09/2024 Prepared by: Lissy Jacques Neuro Re-Ed ([id number]) Intervention Reassessment of patient status including 5x STS, TUG, gait on level, uneven with cane Functional Activity (86602) Parameters STS w/o UE assist 2x10 from low mat table height to progress pt per goal of completing STS w/ decreased time needed, onto A[employer]x Add more exercises? Yes Additional Exercises Add more exercises? Yes Goals: Physical Therapy 1) MOBILITY: Patient will be able to ambulate for 15 minutes in community without difficulty in 8 weeks. (Met 03/11, with walker) NEW ST/27 Patient will be able to ambulate 5-10 minutes with standard cane without difficulty in 4 weeks.(05/04, Near MET, able to ambulate up to 4 minutes with cane) 2) MOBILITY: Patient will be able to ascend/descend stairs without difficulty in 8 weeks. (Not met 03/11)(04/08, Progressing is able to ascend stairs step to gait pattern with rails)(05/04, MET) 3) Patient will improve 5 x STS from 16.08 seconds to 12 seconds or less to demonstrate improved mobility in 8 weeks. (Met 03/11)(04/08 MET to near MET 12.35 seconds on this date with bilateral upper extremity assist) NEW ST/27 Patient will perform 5 x STS in 20 seconds without upper extremity assist. (05/04, MET 8.93 seconds with UE assist. 15.91 seconds without UE assist) 4) Patient will improve TUG from 19.18 seconds to 13 seconds or less to demonstrate decreased fall risk in 8 weeks. (Partially Met 03/11; 13.88 )(04/08, MET with rollator 13 seconds, 14.10 seconds with cane) NEW ST/27 Patient will improve TUG to 13 seconds or less with use of cane to demonstrate decreased fall risk in 4 weeks.(05/04, Near MET 13.93 seconds with cane) 5) Patient will be able to perform sit to supine and car transfers without lifting left leg with Upper extremities in 8 weeks. (Improving but not not met 03/11)(04/08, Partially MET no difficulty with sit to supine, but does have to lift leg into car with upper extremities at times.)(05/04, NEAR MET, assist leg into car intermittently) 6) OTHER: Patient will increase FOTO score from 47 to at least 66 to show MDC/MCII and expected functional outcome in 8 weeks.(04/08, Progressing FOTO = 58)(05/04, Progressed FOTO = 61) 7) OTHER: Patient will be able to properly demonstrate independence with HEP in 2 weeks. (Met 03/11)(04/08, MET for present HEP)(05/04, MET) Patient Education: Quality of movement with patient demonstrated understanding. Post-Treatment Pain Scale: 2 Assessment: Patient had an expected response to treatment. Patient has met or neared all goals and is independent with HEP. Plan to discharge to independent HEP. Patient agreeable with plan. Skilled Intervention demonstrated by modifications of treatment per exercise log including assessment of patient's response and safety interventions per exercise log. Progress towards goals as expected. Plan for Next Visit: Discharge Lissy Jacques, ADRIEN[place] State License, [id number] documented in this encounter [facility] 04-20-2024 History of Presen t illness Narrative [facility] DAILY TREATMENT NOTE Today's Date 04/20/2024 Patient Name: lEizabeth Reis Date of : 1945 Current Visit #: 20 Authorized Visits: 199 Case Name: back surgery History: Pre-Treatment Pain Scale: 1 Symptoms: gradually improved Functional Diagnosis: 1. Aftercare following surgery of the musculoskeletal system Clinical Information: Subjective: Pt reports his L LE is bothering him today. Reports it started this morning and is in the thigh. Objective Treatments: Physical Therapy Exercise Log - 04/20/24 1230 OTHER Precautions/Contraindications Low back surgery 01/13/24 Avoid excessive bending, twisting, lifting greater than 10# for 6 weeks post op, Back brace when up. Notes Visit 19: 12:30-1:10 Vitals Eval 02/08, 2x8 PN completed 03/11, cont POC, Recert 04/08 2x4 Therapeutic Exercise (56826) Intervention NuStep L5 x 5 min Parameters Step stretches HS, gastroc, Quad 3 x 20sec bilat. Intervention Shuttle with wedge DL 62# 2x20 / SL 25# 2x15 bilat Parameters TKE with 40# resistance 20xeach annette - NT (04/18). Intervention Steamboats L3 x10ea bilat Parameters BOSU Step Ups FWD/LAT x 10 ea Intervention BOSU lunges x20 annette Parameters BOSU squats dome up x15 Intervention TKE Blue TBand x20ea Parameters Access Code: [email or web address] URL: [email or web address] Date: 02/09/2024 Prepared by: Lissy Jacques Functional Activity ([id number]) Intervention -- Parameters STS w/o UE assist 2x10 from low mat table height to progress pt per goal of completing STS w/ decreased time needed, onto Airex Add more exercises? Yes Additional Exercises Add more exercises? Yes Gait Training ([id number]) Intervention SPC ambulation w/ L and R turns, SBA, 800ft. PT Treatment Times Therex Total Time 40 12:30-1:10 Direct Treatment Time 40 Total Treatment Time 40 Goals: Physical Therapy Ortho Goals: 1) MOBILITY: Patient will be able to ambulate for 15 minutes in community without difficulty in 8 weeks. (Met 03/11, with walker) NEW ST/27 Patient will be able to ambulate 5-10 minutes with standard cane without difficulty in 4 weeks. 2) MOBILITY: Patient will be able to ascend/descend stairs without difficulty in 8 weeks. (Not met 03/11)(04/08, Progressing is able to ascend stairs step to gait pattern with rails) 3) Patient will improve 5 x STS from 16.08 seconds to 12 seconds or less to demonstrate improved mobility in 8 weeks. (Met 03/11)(04/08 MET to near MET 12.35 seconds on this date with bilateral upper extremity assist) NEW ST/27 Patient will perform 5 x STS in 20 seconds without upper extremity assist. 4) Patient will improve TUG from 19.18 seconds to 13 seconds or less to demonstrate decreased fall risk in 8 weeks. (Partially Met 03/11; 13.88 )(04/08, MET with rollator 13 seconds, 14.10 seconds with cane) NEW ST/27 Patient will improve TUG to 13 seconds or less with use of cane to demonstrate decreased fall risk in 4 weeks. 5) Patient will be able to perform sit to supine and car transfers without lifting left leg with Upper extremities in 8 weeks. (Improving but not not met 03/11)(04/08, Partially MET no difficulty with sit to supine, but does have to lift leg into car with upper extremities at times.) 6) OTHER: Patient will increase FOTO score from 47 to at least 66 to show MDC/MCII and expected functional outcome in 8 weeks.(04/08, Progressing FOTO = 58) 7) OTHER: Patient will be able to properly demonstrate independence with HEP in 2 weeks. (Met 03/11)(04/08, MET for present HEP) Patient Education: Quality of movement and Verbal HEP with patient demonstrated understanding and verbalized understanding. Post-Treatment Pain Scale: 1 Assessment: Patient had an expected response to treatment. Pt had no LOB with gait this date. Does decrease step length when walking with std cane. Skilled Intervention demonstrated by modifications of treatment per exercise log including increased load, increased intensity, increased volume, and assessment of patient's response and safety interventions per exercise log. Progress towards goals as expected. Plan for Next Visit: Treatment Visit with focus on LE strength and balance. Sobia Diana PTA STATE LICENSE, [id number] Cosigned by Lissy Jacques PT at 04/20/2024 3:59 PM EST documented in this encounter [facility] 04-12-2024 History of Presen t illness Narrative Images from the original note were not included. [facility] DAILY TREATMENT NOTE Today's Date 04/12/2024 Patient Name: Elizabeth Reis Date of : 1945 Current Visit #: 17 Authorized Visits: 199 Case Name: back surgery History: Pre-Treatment Pain Scale: 0 Symptoms: stabilized Functional Diagnosis: 1. Aftercare following surgery of the musculoskeletal system Clinical Information: Subjective: Pt. expresses the last couple of days he is getting pain in the groin down to knee L leg when he moves around the pain alleviates. Denies having/wearing back brace this date. Pt. expresses not taking Gabapentin currently d/t increased swelling. Is on water pill to decrease swelling. Denies having any falls since last tx. expresses he lifts grocery bags and his rollator into car. Pt. reports the most extensive thing he currently does is lift his rollator in his car. Expresses he completes stair ambulation at home. Objective Treatments: Physical Therapy Exercise Log - 04/12/24 1320 OTHER Precautions/Contraindications Low back surgery 01/13/24 Avoid excessive bending, twisting, lifting greater than 10#, Back brace when up. Notes Visit 17: 1:20 - 1:59 Vitals Eval 02/08, 2x8 PN completed 03/11, cont POC, Recert 04/08 2x4 Therapeutic Exercise ([id number]) Intervention NuStep L5 x 5 min Parameters 6'' step stretches HS and gastroc 3 x 20 sec bilat Intervention Shuttle with wedge DL 62# 2x20 / SL 25# 2x15 bilat - NT (04/12) Parameters TKE with 40# resistance 20xeach annette - NT (04/12) Intervention Sink exercises including heel raises, hip extension, hamstring curls, hip abduction x20bil. (marching)- NT (04/12) Parameters 6 inch Fwd/Lat Step Ups x 10 ea Intervention Education on BLT precautions and the importance of maintaing them until released by surgeon. Instruction to call doctor about stopping Gabapentin. Parameters Access Code: [email or web address] URL: [email or web address] Date: 02/09/2024 Prepared by: Lissy Jacques Neuro Re-Ed ([id number]) Intervention -- Parameters -- Intervention -- Parameters -- Functional Activity (28441) Add more exercises? Yes Additional Exercises Add more exercises? Yes Gait Training (31565) Intervention Ambulate with SP cane 200' x1 (gait belt and cga) Parameters Flight of stairs RUE up LUE down w/ a step-to pattern PT Treatment Times Therex Total Time 29 1:20 - 1:49 Gait Training Total Time 10 1:49-1:59 Direct Treatment Time 39 Total Treatment Time 39 Goals: Physical Therapy Ortho Goals: 1) MOBILITY: Patient will be able to ambulate for 15 minutes in community without difficulty in 8 weeks. (Met 03/11, with walker) NEW ST/27 Patient will be able to ambulate 5-10 minutes with standard cane without difficulty in 4 weeks. 2) MOBILITY: Patient will be able to ascend/descend stairs without difficulty in 8 weeks. (Not met 03/11)(04/08, Progressing is able to ascend stairs step to gait pattern with rails) 3) Patient will improve 5 x STS from 16.08 seconds to 12 seconds or less to demonstrate improved mobility in 8 weeks. (Met 03/11)(04/08 MET to near MET 12.35 seconds on this date with bilateral upper extremity assist) NEW ST/27 Patient will perform 5 x STS in 20 seconds without upper extremity assist. 4) Patient will improve TUG from 19.18 seconds to 13 seconds or less to demonstrate decreased fall risk in 8 weeks. (Partially Met 03/11; 13.88 )(04/08, MET with rollator 13 seconds, 14.10 seconds with cane) NEW ST/27 Patient will improve TUG to 13 seconds or less with use of cane to demonstrate decreased fall risk in 4 weeks. 5) Patient will be able to perform sit to supine and car transfers without lifting left leg with Upper extremities in 8 weeks. (Improving but not not met 03/11)(04/08, Partially MET no difficulty with sit to supine, but does have to lift leg into car with upper extremities at times.) 6) OTHER: Patient will increase FOTO score from 47 to at least 66 to show MDC/MCII and expected functional outcome in 8 weeks.(04/08, Progressing FOTO = 58) 7) OTHER: Patient will be able to properly demonstrate independence with HEP in 2 weeks. (Met 03/11)(04/08, MET for present HEP) Patient Education: Quality of movement and Verbal HEP with patient demonstrated understanding and verbalized understanding. Post-Treatment Pain Scale: 0 Assessment: Patient had an expected response to treatment. Skilled Intervention demonstrated by modifications of treatment per exercise log including increased load, increased rate, and increased intensity and safety interventions per exercise log. Progress towards goals as expected. Plan for Next Visit: Treatment Visit with focus on progressing LE strengthening as maliha as well as continuing SP cane ambulation. Sondra Tavarez PTA State License, [id number] Cosigned by Lissy Jacques, PT at 04/12/2024 5:00 PM EST documented in this encounter [facility] 04-08-2024 History of Presen t illness Narrative Images from the original note were not included. [facility] DAILY TREATMENT NOTE Today's Date 04/08/2024 Patient Name: Elizabeth Reis Date of : 1945 Current Visit #: 16 Authorized Visits: 199 Case Name: back surgery History: Pre-Treatment Pain Scale: 1 Symptoms: gradually improved Functional Diagnosis: 1. Aftercare following surgery of the musculoskeletal system Clinical Information: Subjective: Patient reports can see improvement. Was using cane in house on/off the other day. Objective Treatments: Physical Therapy Exercise Log - 04/08/24 1309 OTHER Precautions/Contraindications Low back surgery 01/13/24 Avoid excessive bending, twisting, lifting greater than 10#, Back brace when up. Notes Visit 16: 1:15 - 2:00 Vitals Eval 02/08, 2x8 PN completed 03/11, cont POC Therapeutic Exercise ([id number]) Intervention NuStep L5 x 5 min Parameters Step Stretches HS and gastroc 3 x 20 sec bilat NT 04/08 Intervention Shuttle with wedge DL 62# 2x20 / SL 25# 2x15 bilat NT 04/08 Parameters TKE with 40# resistance 20xeach annette NT 04/08 Intervention sink exercises including heel raises, hip extension, hamstring curls, hip abduction, marching x 20 reps bilateral NT 04/08 Parameters 6 inch Fwd/Lat Step Ups x 20 ea NT 04/08 Parameters Access Code: [email or web address] URL: [email or web address] Date: 02/09/2024 Prepared by: Lissy Jacques Neuro Re-Ed ([id number]) Intervention Gait in parallel bars without UE assist with short stride Parameters Ambulate with st cane 200' x1, 100 ' x 1 (gait belt and cga) without foot slap on this date. Intervention Reassessment of patient status including TUG, 5x STS, Gait on level, functional mobility Parameters Sit to stand without UE assist x 5 PT Treatment Times Therex Total Time 5 115-120 Neuro Re-Ed Total Time 40 120-200 Direct Treatment Time 45 Goals: Physical Therapy 1) MOBILITY: Patient will be able to ambulate for 15 minutes in community without difficulty in 8 weeks. (Met 03/11, with walker) NEW ST/27 Patient will be able to ambulate 5-10 minutes with standard cane without difficulty in 4 weeks. 2) MOBILITY: Patient will be able to ascend/descend stairs without difficulty in 8 weeks. (Not met 03/11)(04/08, Progressing is able to ascend stairs step to gait pattern with rails) 3) Patient will improve 5 x STS from 16.08 seconds to 12 seconds or less to demonstrate improved mobility in 8 weeks. (Met 03/11)(04/08 MET to near MET 12.35 seconds on this date with bilateral upper extremity assist) NEW ST/27 Patient will perform 5 x STS in 20 seconds without upper extremity assist. 4) Patient will improve TUG from 19.18 seconds to 13 seconds or less to demonstrate decreased fall risk in 8 weeks. (Partially Met 03/11; 13.88 )(04/08, MET with rollator 13 seconds, 14.10 seconds with cane) NEW ST/27 Patient will improve TUG to 13 seconds or less with use of cane to demonstrate decreased fall risk in 4 weeks. 5) Patient will be able to perform sit to supine and car transfers without lifting left leg with Upper extremities in 8 weeks. (Improving but not not met 03/11)(04/08, Partially MET no difficulty with sit to supine, but does have to lift leg into car with upper extremities at times.) 6) OTHER: Patient will increase FOTO score from 47 to at least 66 to show MDC/MCII and expected functional outcome in 8 weeks.(04/08, Progressing FOTO = 58) 7) OTHER: Patient will be able to properly demonstrate independence with HEP in 2 weeks. (Met 03/11)(04/08, MET for present HEP) Patient Education: Quality of movement with patient demonstrated understanding. Post-Treatment Pain Scale: 1 Assessment: Patient had an expected response to treatment. Patient is progressing towards all goals. Does continue to demonstrate decrease transfers, gait, balance and functional ability. Recommend continued PT with emphasis on transfers, gait, balance including There Ex, neuromuscular reeducation, gait training, and functional activities 2x/wk x 4 weeks. Skilled Intervention demonstrated by modifications of treatment per exercise log including assessment of patient's response and safety interventions per exercise log. Progress towards goals as expected. Plan for Next Visit: Treatment Visit with focus on gait with anthony Jacques, [place]RIEN[place] State License, [id number] documented in this encounter [facility] 03-31-2024 History of Presen t illness Narrative Images from the original note were not included. [facility] DAILY TREATMENT NOTE Today's Date 03/31/2024 Patient Name: Elizabeth Reis Date of : 1945 Current Visit #: 14 Authorized Visits: 199 Case Name: back surgery History: Pre-Treatment Pain Scale: 1 Symptoms: stabilized Functional Diagnosis: 1. Aftercare following surgery of the musculoskeletal system Clinical Information: Subjective: Patient reports had aching in legs at night when in bed 2 nights ago that interrupted sleep. Did sleep better last night. Does have mild swelling in feet. Does notice legs are getting stronger going up stairs. Objective Treatments: Physical Therapy Exercise Log - 03/31/24 1056 OTHER Precautions/Contraindications Low back surgery 01/13/24 Avoid excessive bending, twisting, lifting greater than 10#, Back brace when up. Notes Visit 14: 10:56-11:46 Vitals Eval 02/08, 2x8 PN completed 03/11, cont POC Therapeutic Exercise ([id number]) Intervention NuStep L5 x 5 min Parameters Step Stretches HS and gastroc 3 x 20 sec bilat Intervention Shuttle with wedge DL 56# 2x20 / SL 18# 2x15 ea (TC and facilitation for proper body mechanics) Parameters sink exercises including heel raises, hip extension, hamstring curls, hip abduction, marching x 20 reps bilateral (NT 03/31 d/t time) Intervention TKE with 40# resistance 20xeach annette NT 03/31 d/t time Parameters 6 inch Fwd/Lat Step Ups x 20 ea NT 03/31 d/t time Intervention sit to stand from chair without armrests using seat to push off x 30 reps Parameters Access Code: [email or web address] URL: [email or web address] Date: 02/09/2024 Prepared by: Lissy Jacques Neuro Re-Ed ([id number]) Intervention Alternating BOSU Lunges x20 (light UE support) (NT 03/31 d/t time) Parameters Alternating fwd toe taps onto 8 step standing on Airex x15 BLEs (fingertip support only) (NT 1219 d/t time) Intervention Airex Sit to stand 2x10 from chair with bilateral UE to assist NT 03/31 d/t time Parameters Ambulate with st cane 200' x1, 100 ' x 1 (gait belt and cga) with foot slap on left Intervention Fwd Stepping over Short Hurdles x10 with finger tip support (NT) Parameters Standing beach ball over head reach, side reaches, diagonals x 10 each direction Intervention Gait in parallel bars without UE assist with short stride PT Treatment Times Therex Total Time 20 4599-8733 Neuro Re-Ed Total Time 30 1306-8368 Direct Treatment Time 50 Goals: Physical Therapy OrthoPT: 1) MOBILITY: Patient will be able to ambulate for 15 minutes in community without difficulty in 8 weeks. (Met 03/11, with walker) 2) MOBILITY: Patient will be able to ascend/descend stairs without difficulty in 8 weeks. (Not met 03/11) 3) Patient will improve 5 x STS from 16.08 seconds to 12 seconds or less to demonstrate improved mobility in 8 weeks. (Met 03/11) 4) Patient will improve TUG from 19.18 seconds to 13 seconds or less to demonstrate decreased fall risk in 8 weeks. (Partially Met 03/11; 13.88 ) 5) Patient will be able to perform sit to supine and car transfers without lifting left leg with Upper extremities in 8 weeks. (Improving but not not met 03/11) 6) OTHER: Patient will increase FOTO score from 47 to at least 66 to show MDC/MCII and expected functional outcome in 8 weeks. 7) OTHER: Patient will be able to properly demonstrate independence with HEP in 2 weeks. (Met 03/11) Patient Education: Quality of movement with patient demonstrated understanding. Post-Treatment Pain Scale: 0 Assessment: Patient had an expected response to treatment. Improved gait without upper extremity assist for balance Skilled Intervention demonstrated by modifications of treatment per exercise log including increased mobility and safety interventions per exercise log. Progress towards goals as expected. Plan for Next Visit: Treatment Visit with focus on balance and strengthening. Lissy Jacques, [place] State License, [id number] documented in this encounter [facility] 03-29-2024 History of Presen t illness Narrative Images from the original note were not included. [facility] DAILY TREATMENT NOTE Today's Date 03/29/2024 Patient Name: Elizabeth Reis Date of : 1945 Current Visit #: 13 Authorized Visits: 199 Case Name: back surgery History: Pre-Treatment Pain Scale: 0 Symptoms: gradually improved Functional Diagnosis: 1. Aftercare following surgery of the musculoskeletal system Clinical Information: Subjective: Pt denies pain at this time although does report that he was having pain in L hip the past two days. Objective Treatments: Physical Therapy Exercise Log - 03/29/24 1615 OTHER Precautions/Contraindications Low back surgery 01/13/24 Avoid excessive bending, twisting, lifting greater than 10#, Back brace when up. Notes Visit 13: 4:15-4:58 Vitals Eval 02/08, 2x8 PN completed 03/11, cont POC Therapeutic Exercise ([id number]) Intervention NuStep L5 x 5 min Parameters Step Stretches HS and gastroc 3 x 20 sec bilat Intervention Shuttle with wedge DL 56# 2x20 / SL 18# 2x15 ea (TC and facilitation for proper body mechanics) Parameters sink exercises including heel raises, hip extension, hamstring curls, hip abduction, marching x 20 reps bilateral (NT) Intervention TKE with 40# resistance 20xeach annette Parameters 6 inch Fwd/Lat Step Ups x 20 ea Parameters Access Code: [email or web address] URL: [email or web address] Date: 02/09/2024 Prepared by: Lissy Jacques Neuro Re-Ed ([id number]) Intervention Alternating BOSU Lunges x20 (light UE support) (NT) Parameters Alternating fwd toe taps onto 8 step standing on Airex x15 BLEs (fingertip support only) (NT) Intervention Airex Sit to stand 2x10 from chair with bilateral UE to assist Parameters Ambulate with st cane 200' (gait belt and cga) Intervention Fwd Stepping over Short Hurdles x10 with finger tip support (NT) PT Treatment Times Therex Total Time 28 4:15-4:43 Neuro Re-Ed Total Time 15 4:43-4:58 Direct Treatment Time 43 Total Treatment Time 43 Goals: Physical Therapy Ortho Goals: 1) MOBILITY: Patient will be able to ambulate for 15 minutes in community without difficulty in 8 weeks. (Met 03/11, with walker) 2) MOBILITY: Patient will be able to ascend/descend stairs without difficulty in 8 weeks. (Not met 03/11) 3) Patient will improve 5 x STS from 16.08 seconds to 12 seconds or less to demonstrate improved mobility in 8 weeks. (Met 03/11) 4) Patient will improve TUG from 19.18 seconds to 13 seconds or less to demonstrate decreased fall risk in 8 weeks. (Partially Met 03/11; 13.88 ) 5) Patient will be able to perform sit to supine and car transfers without lifting left leg with Upper extremities in 8 weeks. (Improving but not not met 03/11) 6) OTHER: Patient will increase FOTO score from 47 to at least 66 to show MDC/MCII and expected functional outcome in 8 weeks. 7) OTHER: Patient will be able to properly demonstrate independence with HEP in 2 weeks. (Met 03/11) Patient Education: Quality of movement and Verbal HEP with patient demonstrated understanding and verbalized understanding. Post-Treatment Pain Scale: 0 Assessment: Patient had an expected response to treatment. Skilled Intervention demonstrated by modifications of treatment per exercise log including increased mobility, increased volume, and assessment of patient's response and safety interventions per exercise log. Progress towards goals as expected. Plan for Next Visit: Treatment Visit with focus on continued strength and stability training. Lilly Ham PTA State License, [id number] Cosigned by Lissy Jacques PT at 03/29/2024 5:21 PM EST documented in this encounter [facility] 03-18-2024 History of Presen t illness Narrative Images from the original note were not included. [facility] DAILY TREATMENT NOTE Today's Date 03/18/2024 Patient Name: Elizabeth Reis Date of : 1945 Current Visit #: 10 Authorized Visits: 199 Case Name: back surgery History: Pre-Treatment Pain Scale: soreness Symptoms: gradually improved Functional Diagnosis: 1. Aftercare following surgery of the musculoskeletal system Clinical Information: Subjective: Pt reports some soreness across low back from getting in and out of the car and driving a lot for his follow up with his surgeon this morning. Pt reports his surgeon wants him to continue with PT and he will go back to him in June. Objective Treatments: Physical Therapy Exercise Log - 03/18/24 1231 OTHER Precautions/Contraindications Low back surgery 01/13/24 Avoid excessive bending, twisting, lifting greater than 10#, Back brace when up. Notes Visit 10: 12:31-13:14 Vitals Eval 02/08, 2x8 PN completed 03/11, cont POC Therapeutic Exercise ([id number]) Intervention NuStep L5 x 5 min Parameters Step Stretches (HS and Gastroc on 1/2 foam) 3 x 20 sec bilat Intervention Shuttle with wedge DL 56# 2x20 / LLE 12# and RLE 25# 2x15 ea (TC and facilitation for proper body mechanics) Parameters sink exercises including heel raises, hip extension, hamstring curls, hip abduction, marching x 15 reps bilateral Intervention TKE with L3 tubing LLE / L5 tubing RLE 3 sec x 20 ea Parameters 6 inch Fwd Step Ups x 10 ea Parameters Access Code: [email or web address] URL: [email or web address] Date: 02/09/2024 Prepared by: Lissy Jacques Neuro Re-Ed ([id number]) Intervention Alternating BOSU Lunges x20 (light UE support) Parameters Alternating fwd toe taps onto 8 step standing on Airex x15 BLEs (fingertip support only) Intervention Airex Sit to stand 2x10 from high chair with bilateral UE to assist Parameters Ambulate with st cane 200' (gait belt and close cga) Intervention Fwd Stepping over Short Hurdles x10 with one UE support PT Treatment Times Therex Total Time 32 12:31-13:03 Neuro Re-Ed Total Time 11 13:03-13:14 Direct Treatment Time 43 Total Treatment Time 43 12:31-13:14 Goals: Physical Therapy Ortho Goals: 1) MOBILITY: Patient will be able to ambulate for 15 minutes in community without difficulty in 8 weeks. (Met 03/11, with walker) 2) MOBILITY: Patient will be able to ascend/descend stairs without difficulty in 8 weeks. (Not met 03/11) 3) Patient will improve 5 x STS from 16.08 seconds to 12 seconds or less to demonstrate improved mobility in 8 weeks. (Met 03/11) 4) Patient will improve TUG from 19.18 seconds to 13 seconds or less to demonstrate decreased fall risk in 8 weeks. (Partially Met 03/11; 13.88 ) 5) Patient will be able to perform sit to supine and car transfers without lifting left leg with Upper extremities in 8 weeks. (Improving but not not met 03/11) 6) OTHER: Patient will increase FOTO score from 47 to at least 66 to show MDC/MCII and expected functional outcome in 8 weeks. 7) OTHER: Patient will be able to properly demonstrate independence with HEP in 2 weeks. (Met 03/11) Patient Education: Quality of movement with patient demonstrated understanding and verbalized understanding. Post-Treatment Pain Scale: 0 Assessment: Patient had an expected response to treatment. Pt continues to have difficulty with stepping over juan pablo with LLE and needs cues to decrease circumduction. No knee buckling noted this date during ambulation with SPC. Skilled Intervention demonstrated by modifications of treatment per exercise log including increased volume and assessment of patient's response and safety interventions per exercise log. Verbal/tactile cues and/or demonstration for each exercise to improve technique and decrease compensatory motions with good carryover to maximize benefit of performing. Progress towards goals as expected. Plan for Next Visit: Treatment Visit with focus on progressing closed chain exercises/balance activities to improve functional mobility Da Gaspar PTA STATE LICENSE, [id number] Cosigned by Lissy Jacques PT at 03/18/2024 2:17 PM EST documented in this encounter [facility] 02-25-2024 History of Presen t illness Narrative [facility] DAILY TREATMENT NOTE Today's Date 02/25/2024 Patient Name: Elizabeth Reis Date of : 1945 Current Visit #: 5 Authorized Visits: 199 Case Name: back surgery History: Pre-Treatment Pain Scale: 0 Symptoms: stabilized Functional Diagnosis: 1. Aftercare following surgery of the musculoskeletal system Clinical Information: Subjective: Patient with no new complaints. Does continue to have difficulty with steps. Objective Lumbar Spine Muscle Strength: Hip Flexion Left: 3+ Knee extension Left: 3+ Ankle DF Left: 4- Knee flexion Left: 4 Treatments: Physical Therapy Exercise Log - 02/25/24 1229 OTHER Precautions/Contraindications Low back surgery 01/13/24 Avoid excessive bending, twisting, lifting greater than 10#, Back brace when up. Notes Visit 5: 12:30 - 1:15 Vitals Eval 02/08, 2x8 PN due by 10th visit or 03/11 Therapeutic Exercise (33575) Intervention NuStep L5 x 5 min Parameters Step Stretches (HS and Gastroc on 1/2 foam) 3 x 20 sec bilat Intervention Shuttle DL 43# 2x15 / LLE 12# and RLE 25# x15 ea (TC and facilitation for proper body mechanics) Parameters sink exercises including heel raises, hip extension, hamstring curls, hip abduction, marching x 20 reps bilateral NT 02/24 d/t time Intervention -- Intervention Alternating fwd and lateral toe taps onto 6 step x10 BLEs (RUE Support) NT 02/24 d/t time Parameters TKE with L3 tubing LLE / L5 tubing RLE 3 sec x 20 ea Intervention -- Parameters 4 inch Fwd Step Ups x 20 RLE fwd/lateral(BUE support) Parameters Access Code: [email or web address] URL: [email or web address] Date: 02/09/2024 Prepared by: Lissy Jacques Neuro Re-Ed ([id number]) Intervention airex parallel and staggered stance 30 seconds each direction Parameters Sit to stand 2x10 from high chair with bilateral UE to assist, Sit to stand from elevated plinth(24 inches) with hands on knees PT Treatment Times Therex Total Time 35 Neuro Re-Ed Total Time 10 Direct Treatment Time 45 Goals: Physical Therapy Ortho Goals: 1) MOBILITY: Patient will be able to ambulate for 15 minutes in community without difficulty in 8 weeks. 2) MOBILITY: Patient will be able to ascend/descend stairs without difficulty in 8 weeks. 3) Patient will improve 5 x STS from 16.08 seconds to 12 seconds or less to demonstrate improved mobility in 8 weeks. 4) Patient will improve TUG from 19.18 seconds to 13 seconds or less to demonstrate decreased fall risk in 8 weeks. 5) Patient will be able to perform sit to supine and car transfers without lifting left leg with Upper extremities in 8 weeks. 6) OTHER: Patient will increase FOTO score from 47 to at least 66 to show MDC/MCII and expected functional outcome in 8 weeks. 7) OTHER: Patient will be able to properly demonstrate independence with HEP in 2 weeks. Patient Education: Quality of movement with patient demonstrated understanding. Post-Treatment Pain Scale: 0 Assessment: Patient had an expected response to treatment. Patient demonstrates increase in left LE strength as per objective findingz Skilled Intervention demonstrated by modifications of treatment per exercise log including increased load and safety interventions per exercise log. Progress towards goals as expected. Plan for Next Visit: Treatment Visit with focus on strengthening and balance Lissy Jacques, PT State License, [id number] documented in this encounter [facility] 02-19-2024 History of Presen t illness Narrative [facility] DAILY TREATMENT NOTE Today's Date 02/19/2024 Patient Name: Elizabeth Reis Date of : 1945 Current Visit #: 3 Authorized Visits: 199 Case Name: back surgery History: Pre-Treatment Pain Scale: 0 Symptoms: gradually improved Functional Diagnosis: 1. Aftercare following surgery of the musculoskeletal system Clinical Information: Subjective: Pt denies pain at this time and expressing that pain is only present in low back when completing transfers. Pt also reports feeling out of breath from walking into building and back to therapy room. Objective Treatments: Physical Therapy Exercise Log - 02/19/24 1227 OTHER Precautions/Contraindications Low back surgery 01/13/24 Avoid excessive bending, twisting, lifting greater than 10#, Back brace when up. Eval 02/08, 2x8 Notes Visit 3: 12:27-1:11 Therapeutic Exercise (63957) Intervention Patient educated verbally and via demonstration on HEP, Issued written HEP. Patient able to return demonstration of exercises. Access Code: [email or web address] URL: [email or web address] Date: 02/09/2024 Prepared by: Lissy Jacques Exercises - Standing Knee Flexion with Counter Support - 1 x daily - 7 x weekly - 1 sets - 10 reps - Standing March with Unilateral Counter Support - 1 x daily - 7 x weekly - 1 sets - 10 reps - Standing Hip Extension with Unilateral Counter Support - 1 x daily - 7 x weekly - 1 sets - 10 reps - Heel Toe Raises with Unilateral Counter Support - 1 x daily - 7 x weekly - 1 sets - 10 reps - Standing Hip Abduction with Unilateral Counter Support - 1 x daily - 7 x weekly - 1 sets - 10 reps Parameters sink exercises including heel raises, hip extension, hamstring curls, hip abduction, marching x 20 reps bilateral Intervention LAQs and Hamstring curls with yellow tband x 20 left Parameters Hip adduction ball squeezes/hip abduction with yellow tband x 20 each Intervention NuStep lvl 3 x 5 minutes Parameters Sit to stand 2x10 from high chair with bilateral UE to assist Intervention Alternating fwd and lateral toe taps onto 6 step 2x10 BLEs Parameters Bosu alternating lunge x 10 with left knee hyperextending intermittently Intervention TKE with yellow tband x 20 left Parameters -- Neuro Re-Ed ([id number]) Intervention Modified tandem stance [id number] each BLEs Parameters side stepping with bilateral and single UE assist in parallel bars x 4 laps Intervention Fwd and lateral ambulation over 6 hurdles in parallel bars x 3 laps with cueing for decreased circumduction with LLE PT Treatment Times Therex Total Time 30 Neuro Re-Ed Total Time 14 Direct Treatment Time 44 Total Treatment Time 44 Goals: Physical Therapy Ortho Goals: MOBILITY: Patient will be able to ambulate for 15 minutes in community without difficulty in 8 weeks. MOBILITY: Patient will be able to ascend/descend stairs without difficulty in 8 weeks. Patient will improve 5 x STS from 16.08 seconds to 12 seconds or less to demonstrate improved mobility in 8 weeks. Patient will improve TUG from 19.18 seconds to 13 seconds or less to demonstrate decreased fall risk in 8 weeks. Patient will be able to perform sit to supine and car transfers without lifting left leg with Upper extremities in 8 weeks. OTHER: Patient will increase FOTO score from 47 to at least 66 to show MDC/MCII and expected functional outcome in 8 weeks. OTHER: Patient will be able to properly demonstrate independence with HEP in 2 weeks. Patient Education: Quality of movement with patient demonstrated understanding and verbalized understanding. Post-Treatment Pain Scale: 0 Assessment: Patient had an expected response to treatment. Skilled Intervention demonstrated by modifications of treatment per exercise log including increased mobility, increased volume, and assessment of patient's response and safety interventions per exercise log. Progress towards goals as expected. Plan for Next Visit: Treatment Visit with focus on continued strength and stability training for improved activity tolerance and to decrease muscular fatigue in LLE. Lilly Ham PTA State License, [id number] documented in this encounter [facility] 02-18-2024 History of Presen t illness Narrative [facility] DAILY TREATMENT NOTE Today's Date 02/18/2024 Patient Name: Elizabeth Reis Date of : 1945 Current Visit #: 2 Authorized Visits: 199 Case Name: back surgery History: Pre-Treatment Pain Scale: 0 Symptoms: stabilized Functional Diagnosis: 1. Aftercare following surgery of the musculoskeletal system Clinical Information: Subjective: Patient reports legs cramp up at night Objective Treatments: Physical Therapy Exercise Log - 02/18/24 1229 OTHER Precautions/Contraindications Low back surgery 01/13/24 Avoid excessive bending, twisting, lifting greater than 10#, Back brace when up. Eval 02/08, 2x8 Notes Visit 2: 12:30-1:10 Therapeutic Exercise (43040) Intervention Patient educated verbally and via demonstration on HEP, Issued written HEP. Patient able to return demonstration of exercises. Access Code: [email or web address] URL: [email or web address] Date: 02/09/2024 Prepared by: Lissy Jacques Exercises - Standing Knee Flexion with Counter Support - 1 x daily - 7 x weekly - 1 sets - 10 reps - Standing March with Unilateral Counter Support - 1 x daily - 7 x weekly - 1 sets - 10 reps - Standing Hip Extension with Unilateral Counter Support - 1 x daily - 7 x weekly - 1 sets - 10 reps - Heel Toe Raises with Unilateral Counter Support - 1 x daily - 7 x weekly - 1 sets - 10 reps - Standing Hip Abduction with Unilateral Counter Support - 1 x daily - 7 x weekly - 1 sets - 10 reps Parameters sink exercises including heel raises, hip extension, hamstring curls, hip abduction, marching x 20 reps bilateral Intervention LAQs x10/Hamstring curl with yellow tband x 20 left Parameters Hip adduction ball squeezes/hip abduction with yellow tband x 20 each Intervention NuStep lvl 3 x 5 minutes Parameters Sit to stand x10 from high chair with bilateral UE to assist Parameters Bosu alternating lunge x 10 with left knee hyperextending intermittently Intervention TKE with yellow tband x 20 left Neuro Re-Ed (89382) Intervention parallel stance and staggered stance 30 seconds each direction Parameters side stepping with bilateral and single UE assist in parallel bars x 8 laps PT Treatment Times Therex Total Time 30 Neuro Re-Ed Total Time 10 Direct Treatment Time 40 Goals: Physical Therapy Ortho Goals: MOBILITY: Patient will be able to ambulate for 15 minutes in community without difficulty in 8 weeks. MOBILITY: Patient will be able to ascend/descend stairs without difficulty in 8 weeks. Patient will improve 5 x STS from 16.08 seconds to 12 seconds or less to demonstrate improved mobility in 8 weeks. Patient will improve TUG from 19.18 seconds to 13 seconds or less to demonstrate decreased fall risk in 8 weeks. Patient will be able to perform sit to supine and car transfers without lifting left leg with Upper extremities in 8 weeks. OTHER: Patient will increase FOTO score from 47 to at least 66 to show MDC/MCII and expected functional outcome in 8 weeks. OTHER: Patient will be able to properly demonstrate independence with HEP in 2 weeks. Patient Education: Quality of movement with patient demonstrated understanding. Post-Treatment Pain Scale: 0 Assessment: Patient had an expected response to treatment. Able to increase exercises without increase in symptoms Skilled Intervention demonstrated by modifications of treatment per exercise log including increased load and safety interventions per exercise log. Progress towards goals as expected. Plan for Next Visit: Treatment Visit with focus on left LE strengthening and balance Lissy Jacques, ADRIENNE State License, [id number] documented in this encounter [facility] 02-09-2024 History of Presen t illness Narrative [facility] Evaluation Today's Date 02/09/2024 Patient Name: Elizabeth Reis Date of : 1945 Case Name: back surgery Functional Diagnosis: 1. Aftercare following surgery of the musculoskeletal system Clinical Information: Subjective Referring Diagnosis: aftercare following surgery of musculoskeletal system Follow-up with physician: 02/26/2024 History of Present Illness Date of Onset: 01/13/2024 Surgery Date: 01/13/2024 Days Post-Op: 27 Subjective History: Patient is s/p back surgery 01/13/24. Patient reports had numbness in left LE prior to surgery but was able to use cane for gait. Patient does reports falling 2 times in last 24 hours. Patient presently requires walker for gait. Patient does have back brace. Patient does own cane and FWW. Patient does lives in 2 story home with full bath on 2nd floor with 0 JAUN. Patient does have difficulty getting out of low chairs, does have to pick remover left leg to get into bed and car. Patient does have Hx of restless leg and is awakened at night d/t left leg tensing up. Does have numbness in bilateral feet and left leg. Patient is to avoid excessive bending, twisting, lifting greater than 10 pounds. Previous Treatment for this condition: No Hand dominance: right Overall rating of health: Good Pain Scale Average Pain: 2/10 Personal Goals: Patient would like to have increased use out of left leg Social Support: Jainism, social, or cultural considerations to be made aware of before starting treatment: No Home Environment Do you feel safe at home? Yes Red Flags: None Comments: Barriers to Care: Other Mobility Fall risk screening Fallen 2 or more times in the last 12 months: Yes Injured as a result of a fall in the last 12 months: Yes Jainism, social, or cultural considerations to be made aware of before starting treatment: No Lumbar Spine Dermatomes Sensation: decreased Muscle Strength: Hip Flexion Right: 5 Left: 2+ Knee extension Right: 5 Left: 2+ Ankle DF Right: 5 Left: 4 Hallux ext Right: 5 Left: 4 Ankle PF Right: 5 Left: 4- Knee flexion Right: 5 Left: 4- Hip ABD Right: 5 Left: 3 Lumbar classification Other: 5 x STS 16.08 seconds TUG = with FWW = 19.18 seconds FOTO Score: 47 Treatments: Physical Therapy Exercise Log - 02/09/24 1006 OTHER Precautions/Contraindications Low back surgery 01/13/24 Avoid excessive bending, twisting, lifting greater than 10#, Back brace when up. Eval 02/08, 2x8 Notes Visit 1: 10:12 - 11:00 Therapeutic Exercise (20920) Intervention Patient educated verbally and via demonstration on HEP, Issued written HEP. Patient able to return demonstration of exercises. Access Code: [email or web address] URL: [email or web address] Date: 02/09/2024 Prepared by: Lissy Jacques Exercises - Standing Knee Flexion with Counter Support - 1 x daily - 7 x weekly - 1 sets - 10 reps - Standing March with Unilateral Counter Support - 1 x daily - 7 x weekly - 1 sets - 10 reps - Standing Hip Extension with Unilateral Counter Support - 1 x daily - 7 x weekly - 1 sets - 10 reps - Heel Toe Raises with Unilateral Counter Support - 1 x daily - 7 x weekly - 1 sets - 10 reps - Standing Hip Abduction with Unilateral Counter Support - 1 x daily - 7 x weekly - 1 sets - 10 reps Parameters sink exercises including heel raises, hip extension, hamstring curls, hip abduction, marching x 10 reps bilateral PT Treatment Times Therex Total Time 12 Direct Treatment Time 12 Treatment Plan: Frequency of Visits: twice per week Duration: 8 weeks Interventions: Therapeutic Exercise (93196), Neuromuscular Re-Education (80524), Therapeutic/ Functional Activities (31124), and Gait Training (80688) Rehab Potential: good Goals: Physical Therapy Ortho Goals: MOBILITY: Patient will be able to ambulate for 15 minutes in community without difficulty in 8 weeks. MOBILITY: Patient will be able to ascend/descend stairs without difficulty in 8 weeks. Patient will improve 5 x STS from 16.08 seconds to 12 seconds or less to demonstrate improved mobility in 8 weeks. Patient will improve TUG from 19.18 seconds to 13 seconds or less to demonstrate decreased fall risk in 8 weeks. Patient will be able to perform sit to supine and car transfers without lifting left leg with Upper extremities in 8 weeks. OTHER: Patient will increase FOTO score from 47 to at least 66 to show MDC/MCII and expected functional outcome in 8 weeks. OTHER: Patient will be able to properly demonstrate independence with HEP in 2 weeks. Patient Education provided: Patient educated verbally and via demonstration on HEP, Issued written HEP. Patient able to return demonstration of exercises. Access Code: [email or web address] URL: [email or web address] Date: 02/09/2024 Prepared by: Lissy Jacques Exercises - Standing Knee Flexion with Counter Support - 1 x daily - 7 x weekly - 1 sets - 10 reps - Standing March with Unilateral Counter Support - 1 x daily - 7 x weekly - 1 sets - 10 reps - Standing Hip Extension with Unilateral Counter Support - 1 x daily - 7 x weekly - 1 sets - 10 reps - Heel Toe Raises with Unilateral Counter Support - 1 x daily - 7 x weekly - 1 sets - 10 reps - Standing Hip Abduction with Unilateral Counter Support - 1 x daily - 7 x weekly - 1 sets - 10 reps Clinical Impression: CPT Code 97177 Low 28563 Moderate 59181 High History 0 1-2 3+ Comorbidities: HTN and sleep apnea, Personal factors: age and chronicity or severity of the current condition Examination of body systems (elements of body structures & functions, activity limitations, and/or participation restrictions) 1-2 elements 3+ elements 4+ elements See below clinical impression Clinical Presentation Stable Evolving Unstable As evidenced by reports of fluctuating symptoms over time Decision Making Low (FOTO >/= 69) Moderate (FOTO 34 - 68) High (FOTO </= 33) FOTO score= 47 and TUG score= 19.18 seconds Pt is a 78 y.o. male who presents to PT services s/p back surgery with left LE weakness. Upon assessment, pt has been found with the following impairments: decreased strength, antalgic gait, decreased stability, and pain. The documented impairments result in the following functional limitations: regular PA/exercise, functional mobility, walking, stairs, recreational activities, and quality of life. The pt would benefit from skilled PT services focused on the above listed impairments and limitations in order to safely progress pt to their desired level of function. Pt to be discharged from OP PT services if/when goals are met, if they fail to make progress with conservative management in PT, if their level of progress plateaus, or if they do not maintain compliance with attendance or HEP. At this time, it is my clinical judgment that services are medically necessary. Lissy Jacques, PT State License, [id number] documented in this encounter [facility] 06-16-2023 History of Presen t illness Narrative Clip card given to patient with dc instructions. .es Discharge Criteria Outpatients must meet criteria 1 through 7. Up to restroom, void sufficient amount. Yes 1. Minimum 30 minutes after last dose of sedative medication, minimum 120 minutes after last dose of reversal agent. Yes 2. Systolic BP stable within 20 mmHg for 30 minutes & systolic BP between 90 & 180 or within 10 mmHg of baseline. Yes 3. Pulse between 60 and 100 or within 10 bpm of baseline. Yes 4. Spontaneous respiratory rate >/= 10 per minute. Yes 5. SaO2 >/= 95 or >/= baseline. Yes 6. Able to cough and swallow or return to baseline function. Yes 7. Alert and oriented or return to baseline mental status. Yes 8. Demonstrates controlled, coordinated movements, ambulates with steady gait, or return to baseline activity function. Yes 9. Minimal or no pain or nausea, or at a level tolerable and acceptable to patient. Yes 10. Takes and retains oral fluids as allowed. Yes 11. Procedural / perioperative site stable. Minimal or no bleeding. Yes 12. If GI endoscopy procedure, minimal or no abdominal distention or passing flatus. Yes 13. Written discharge instructions and emergency telephone number provided. Yes 14. Accompanied by a responsible adult. Yes Adult patient discharged from facility without responsible person meets above criteria plus the following: a) remains awake without stimulus for 30 minutes b) oriented appropriate for age c) all vital signs stable d) no significant risk of losing protective reflexes e) able to maintain pre-procedure mobility without assistance f) no nausea or dizziness g) transportation arrangements that do not require patient to operate motor Vehicle. Yes Clips were placed in the colon as part of the polyp removal process; these clips are metal and can interfere with MRI imaging; the clips will pass as part of a bowel movement after several weeks. Until that time, the patient has been given an implant card stating when and where the clip is located. The patient was instructed to present the card to radiology prior to having any MRI imaging taken. [facility] Preadmission Testing Name: Elizabeth Reis : 1945 Patient (home) [phone] (work) Procedure: Colonscopy Date of Procedure: 06/15 Surgeon: Cleopatra Sotelo MD Ht: 188 cm (6' 2 ) Wt: 102.5 kg (226 lb) Wt method: Stated Allergies: No Known Allergies There were no vitals filed for this visit. No LMP for male patient. Do you take blood thinners? [] Yes [x] No Instructed to stop blood thinners prior to procedure? [] Yes [] No [x] N/A Do you have sleep apnea? [x] Yes [] No Do you have acid reflux ? [x] Yes [] No Do you have hiatal hernia? [] Yes [x] No Do you ever experience motion sickness? [] Yes [x] No Have you had a respiratory infection or sore throat in last 4 weeks before surgery? [] Yes [x] No Do you have poorly controlled asthma or COPD? Difficulty with intubation in past? [] Yes [x] No [] Yes [x] No Do you have a history of angina in the last month or symptomatic arrhythmia? [] Yes [x] No Do you have significant central nervous system disease? [] Yes [x] No Have you had an EKG, labs, or chest xray in last 12 months? If yes provide copies to anesthesia [x] Yes [] No [] Lab [x] EKG [] CXR Have you had a stress test? [x] Yes [] No When/where: Was it normal? [x] Yes [] No Do you or your family have a history of Malignant Hyperthermia? [] Yes [x] No Do you smoke? [x] Yes [] No Please refrain from smoking on the day of surgery. Patient instructed on: [x] NPO Status [x] Meds to Take [] Hold GLP-1 Receptor Agonist [x] Ride Home [x] No Jewelry/Contact Lenses/Nail Luxembourger [x] Prep/Lax/Clear Liquids [] Chlorhexidene DOS Patient Needs [] HCG [] Blood Sugar [] PT/INR [] T&S Do you have any metal allergies? [] Yes [x] No If yes, to what metals: Patient instructed on the pre-operative, intra-operative, and post-operative process? Yes Medication instructions reviewed with patient? Yes documented in this encounter [facility] 06-16-2023 [facility] Discharg e instructions Lilo Kauffman RN - 06/16/2023 10:04 AM EST Discharge Instructions for Colonoscopy Colonoscopy is a visual exam of the lining of the large intestine, also called the bowel or colon, with a colonoscope. A colonoscope is a flexible tube with a light and a viewing device. It allows the doctor to view the inside of the colon through a tiny video camera. Colonoscopy is performed for many reasons: unexplained anemia , pain, diarrhea , bloody stools, cancer screening, among many other reasons. Complications from a colonoscopy are rare. Some possible serious complications include perforated bowel (which might require surgery) and bleeding (which could require blood transfusion ). Minor complications include bloating, gas, and cramping that can last for 1-2 days after the procedure. Because air is put into your colon during the procedure, it is normal to pass large amounts of air from your rectum. You may not have a bowel movement for 1-3 days after the procedure. What You Will Need Someone to drive you home after the procedure Steps to Take Home Care Rest when you get home. Because the sedative will make you drowsy, don't drive, operate machinery, or make important decisions the day of the procedure. Feelings of bloating, gas, or cramping may persist for 24 hours. Diet Try sips of water first. If tolerated, resume regular diet or the diet recommended by your physician. Do not drink alcohol for 24 hours. Physical Activity Ask your doctor when you will be able to return to work. Do not drive, operate heavy machinery, or do activities that require coordination or balance for 24 hours. Otherwise, return to your normal routine as soon as you are comfortable to do so, which is usually the next day after the procedure. Medications When taking medications, it's important to: Take your medication as directednot more, not less, not at a different time. Do not stop taking them without consulting your healthcare provider. Don't share them with anyone else. Know what effects and side effects to expect, and report them to your healthcare provider. If you are taking more than one drug, even if it is an ivqk-faj-jqkbiib medication, herb, or dietary supplement, be sure to check with a physician or pharmacist about drug interactions. Plan ahead for refills so you don't run out. Lifestyle Changes The results of your colonoscopy will determine if any lifestyle changes are necessary. Follow-up The doctor will usually give you a preliminary report after the medication wears off and you are more alert. The results from a biopsy can take as long as 1-2 weeks to be completed. Schedule a follow-up appointment as directed by your doctor. You should schedule a follow-up colonoscopy as recommended by your doctor. Call Your Doctor If Any of the Following Occurs Monitor your recovery once you leave the hospital. As soon as you have a problem, alert your doctor. If any of the following occur, call your doctor: Bleeding from your rectum; notify your doctor if you pass a teaspoonful or more of blood Black, tarry stools Severe abdominal pain Hard, swollen abdomen Signs of infection, including fever or chills Inability to pass gas or stool Coughing, shortness of breath, chest pain, severe nausea or vomiting In case of an emergency, call 911 immediately. documented in this encounter [facility] 05-22-2023 History of Presen t illness Narrative Skin Check Location: Patient requests a skin examination from the waist up Dermatologic history: history of Actinic Keratosis, history of Squamous Cell Carcinoma (left dorsal hand) Last visit: 12/2021 All pertinent medical history, medications, and allergies were reviewed. General Exam: alert , oriented to person, place, and time , normal affect, well appearing uses a walker A complete skin exam was offered, pt declined. Areas not examined despite medical recommendation: From the waist down Scalp, Examined Head, Face Examined Neck Examined Chest Examined Back Examined Abdomen Examined Right arm Examined Left arm Examined Hands Examined Digits,nails: Examined Lymphatics: Not examined 1. Melanocytic nevus of trunk Scattered benign appearing, regular brown to light brown melanocytic papules and macules with similar morphology Counseled regarding these benign growths. Rarely, a nevus can develop into malignant melanoma, so any changing nevi should be promptly re-evaluated. 2. Personal history of squamous cell carcinoma of skin Left Dorsal Hand No evidence of recurrence at SCC scar. The patient was counseled that scars from excisional sites of nonmelanoma skin cancers should be monitored closely for recurrence. The patient was instructed to contact the office for any new, changing, or symptomatic moles. The patient was also instructed to contact the office for any new lesions that develop within or around the previous surgery scar. 3. Actinic keratosis (8) Left Forearm - Posterior (2), Left Hand - Posterior (4), Left Wrist - Posterior (2) Erythematous scaly papules Patient was counseled regarding these sun-induced growths that can develop into squamous cell carcinoma if left untreated. Discussed treatment with cryotherapy. It was emphasized that any treated lesions that fail to resolve should be re-evaluated. Cryotherapy performed today; see procedure note Diagnosis: Actinic keratosis Indication: Precancerous Location: see skin exam Consent: Verbal consent was obtained and risks were discussed, including, but not limited to risks of scarring, darker or diet therapist pigmentary changes, recurrence, incomplete removal and infection. Method: Liquid nitrogen was used to treat the lesion(s) with two 5-10 second freeze-thaw cycles. Number of lesions treated: 8 Post-procedure instructions: Instructions were given orally and in writing. The office will be contacted if the lesion fails to resolve despite treatment, or if a side effect develops such as abnormal crusting, scabbing, redness or tenderness Cryotherapy, skin lesion - Left Forearm - Posterior (2), Left Hand - Posterior (4), Left Wrist - Posterior (2) 4. Seborrheic keratosis Stuck on verrucous, variably pigmented papules and plaques. Patient was counseled regarding these benign growths. Removal is normally not necessary, but they may be removed if they are symptomatic or for cosmetic reasons. Next Visit: 1 year documented in this encounter [facility] Evaluation note Diagnosis Mixed hyperlipidemia Essential hypertension Unspecified essential hypertension documented in this encounter [email or web address] Phone: evaluation note* Diagnosis Personal history of nicotine dependence Personal history of tobacco use, presenting hazards to health documented in this encounter [email or web address] Phone: evaluation note* Diagnosis Essential hypertension Unspecified essential hypertension Centrilobular emphysema (HCC) Other emphysema Screening for thyroid disorder Mixed hyperlipidemia Prostate cancer screening Special screening for malignant neoplasm of prostate documented in this encounter [email or web address] Phone: [email or web address] note* Diagnosis Olecranon bursitis of left elbow- Primary Olecranon bursitis documented in this encounter [email or web address] Phone: evaluation note* Diagnosis Mixed hyperlipidemia Screening for thyroid disorder Centrilobular emphysema (HCC) Other emphysema Essential hypertension Unspecified essential hypertension documented in this encounter [employer] Phone: [email or web address] note* Diagnosis Personal history of nicotine dependence Personal history of tobacco use, presenting hazards to health documented in this encounter [employer] Phone: [email or web address] note* Diagnosis Coronary artery calcification seen on CT scan Essential hypertension Unspecified essential hypertension Centrilobular emphysema (HCC) Other emphysema Smoker Tobacco use disorder History of smoking greater than 50 pack years documented in this encounter [facility] [place] [employer] Phone: evaluation note* Diagnosis SOB (shortness of breath) Shortness of breath [facility]* Diagnosis Melanocytic nevus of trunk- Primary Benign neoplasm of skin of trunk, except scrotum Personal history of squamous cell carcinoma of skin Personal history of other malignant neoplasm of skin Actinic keratosis Seborrheic keratosis [facility] Diagnosis Balance disorder Other symptoms involving nervous and musculoskeletal systems Unsteady gait Abnormality of gait Colon cancer screening Special screening for malignant neoplasms, colon documented in this [facility] Diagnosis Colon cancer screening Special screening for malignant neoplasms, colon documented in this [facility]* Diagnosis Acute right hip pain Pain in joint, pelvic region and thigh Primary osteoarthritis of right hip Primary localized osteoarthrosis, pelvic region and thigh documented in this encounter [facility]* Diagnosis Pre-op chest exam Pre-operative respiratory examination documented in this encounter [facility]* Diagnosis Hypercholesterolemia Pure hypercholesterolemia Screening for prostate cancer Special screening for malignant neoplasm of prostate documented [facility] this encounter [facility]* Diagnosis History of smoking greater than 50 pack years Personal history of tobacco use Personal history of tobacco use, presenting hazards to health documented in this encounter [facility]* Diagnosis Aftercare following surgery of the musculoskeletal system- Primary Aftercare following surgery of the musculoskeletal system, NEC [facility] Diagnosis Aftercare following surgery of the musculoskeletal system Aftercare following surgery of the musculoskeletal system, NEC [facility]* Diagnosis Aftercare following surgery of the musculoskeletal system- Primary Aftercare following surgery of the musculoskeletal system, NEC [facility]* Diagnosis Aftercare following surgery of the musculoskeletal system- Primary Aftercare following surgery of the musculoskeletal system, NEC [facility]* Diagnosis Aftercare following surgery of the musculoskeletal system- Primary Aftercare following surgery of the musculoskeletal system, NEC [facility]* Diagnosis Aftercare following surgery of the musculoskeletal system- Primary Aftercare following surgery of the musculoskeletal system, NEC [facility]* Diagnosis Encounter for other orthopedic aftercare Weakness Other malaise and fatigue documented [facility] this [facility] Diagnosis Aftercare following surgery of the musculoskeletal system- Primary Aftercare following surgery of the musculoskeletal system, NEC [facility]* Diagnosis Aftercare following surgery of the musculoskeletal system- Primary Aftercare following surgery of the musculoskeletal system, NEC [facility]* Diagnosis Aftercare following surgery of the musculoskeletal system- Primary Aftercare following surgery of the musculoskeletal system, NEC [facility]* Diagnosis Aftercare following surgery of the musculoskeletal system- Primary Aftercare following surgery of the musculoskeletal system, NEC [facility]* Diagnosis Aftercare following surgery of the musculoskeletal system- Primary Aftercare following surgery of the musculoskeletal system, NEC [facility]* Diagnosis Seborrheic keratosis- Primary Actinic keratosis History of squamous cell carcinoma of skin Personal history of other malignant neoplasm of skin Melanocytic nevus of trunk Benign neoplasm of skin of trunk, except scrotum Lentigines [facility]* Attachments The following attachments cannot be sent through Care Everywhere. * Elbow Bursitis (Eritrean) [facility]: Summary Purpose Family History No Family History Records FoundNo Family History Records FoundNo Family History Records FoundNo Family History Records FoundNo Family History Records Found Advance Directives No Advanced Directives Records FoundDocuments on File Type Date Recorded Patient Senior Technical Support Engineer Expl anation Advance Directives and Livin g Will 12/17/2018 8:02 AM Documents on File Type Date Recorded Patient Senior Technical Support Engineer Expl anation Advance Directives and Livin g Will 12/20/2018 8:02 AM Documents on File Type Date Recorded Patient Senior Technical Support Engineer Expl anation Advance Directives and Living Will Power of Full Time Paramedic Documents on File Type Date Recorded Patient Senior Technical Support Engineer Expl anation ACP-Advance Directive ACP-Power of Full Time Paramedic Documents on File Type Date Recorded Patient Senior Technical Support Engineer Expl anation ACP-Advance Directive ACP-Power of Full Time Paramedic Documents on File Type Date Recorded Patient Senior Technical Support Engineer Expl anation Advance Directives and Livin g Will 12/20/2018 8:02 AM Documents on File Type Date Recorded Patient Senior Technical Support Engineer Expl anation ACP-Advance Directive ACP-Advance Directive 02/29/2020 7:53 AM ACP-Power of Full Time Paramedic ACP-Power of Full Time Paramedic 02/29/2020 7:53 AM Healthcare Agents on File Name Relationship Healthcare Agent Relationshi p Communication Tereso Reis Spouse Primary Decision Maker Modesta Holida Child Supplemental (Other) Decis ion Maker Cristiana Neer Child Secondary Decision Maker Documents on File Type Date Recorded Patient Senior Technical Support Engineer Expl anation ACP-Advance Directive ACP-Power of Full Time Paramedic ACP-Advance Directive 02/29/2020 7:53 AM ACP-Power of Full Time Paramedic 02/29/2020 7:53 AM Healthcare Agents on File Name Relationship Healthcare Agent Relationshi p Communication Tereso Reis Spouse Primary Decision Maker Modesta Holida Child Supplemental (Other) Decis ion Maker Cristiana Neer Child Secondary Decision Maker Documents on File Type Date Recorded Patient Senior Technical Support Engineer Expl anation ACP-Advance Directive ACP-Power of Full Time Paramedic ACP-Advance Directive 02/29/2020 7:53 AM ACP-Power of Full Time Paramedic 02/29/2020 7:53 AM Healthcare Agents on File Name Relationship Healthcare Agent Relationshi p Communication Tereso Reis Spouse Primary Decision Maker Modesta Holida Child Supplemental (Other) Decis ion Maker Cristiana Neer Child Secondary Decision Maker Healthcare Agents on File Name Relationship Healthcare Agent Relationshi p Communication Tereso Reis Spouse Primary Decision Maker Modesta Holida Child Supplemental (Other) Decis ion Maker Cristiana Neer Child Secondary Decision Maker Documents on File Type Date Recorded Patient Senior Technical Support Engineer Expl anation ACP-Advance Directive 02/29/2020 7:53 AM ACP-Power of Full Time Paramedic 02/29/2020 7:53 AM Documents on File Type Date Recorded Patient Senior Technical Support Engineer Expl anation ACP-Advance Directive 02/29/2020 7:53 AM ACP-Power of Full Time Paramedic 02/29/2020 7:53 AM Healthcare Agents on File Name Relationship Healthcare Agent Relationshi p Communication Tereso Reis Spouse Primary Decision Maker Modesta Holida Child Supplemental (Other) Decis ion Maker Cristiana Neer Child Secondary Decision Maker Healthcare Agents on File Name Relationship Healthcare Agent Relationshi p Communication Tereso Reis Spouse Primary Decision Maker [phone] (Home) Modesta Holida Child Supplemental (Other) Decis ion Maker Cristiana Neer Child Secondary Decision Maker Healthcare Agents on File Name Relationship Healthcare Agent Relationshi p Communication Tereso Reis Spouse Primary Decision Maker [phone] (Home) Modesta Holida Child Supplemental (Other) Decis ion Maker Cristiana Neer Child Secondary Decision Maker Healthcare Agents on File Name Relationship Healthcare Agent Relationshi p Communication Tereso Reis Spouse Primary Decision Maker [phone] (Home) Modesta Holida Child Supplemental (Other) Decis ion Maker Cristiana Neer Child Secondary Decision Maker Healthcare Agents on File Name Relationship Healthcare Agent Relationshi p Communication Tereso Robinson Smiley Spouse Primary Decision Maker [phone] (Home) Modesta Holida Child Supplemental (Other) Decis ion Maker Cristiana Neer Child Secondary Decision Maker Healthcare Agents on File Name Relationship Healthcare Agent Relationshi p Communication Tereso Reis Spouse Primary Decision Maker [phone] (Home) Modesta Holida Child Supplemental (Other) Decis ion Maker Cristiana Neer Child Secondary Decision Maker Healthcare Agents on File Name Relationship Healthcare Agent Relationshi p Communication Tereso Reis Spouse Primary Decision Maker Modesta Holida Child Supplemental (Other) Decis ion Maker Cristiana Neer Child Secondary Decision Maker Healthcare Agents on File Name Relationship Healthcare Agent Relationshi p Communication Tereso Reis Spouse Primary Decision Maker [phone] (Home) Modesta Holida Child Supplemental (Other) Decis ion Maker Cristiana Neer Child Secondary Decision Maker Healthcare Agents on File Name Relationship Healthcare Agent Relationshi p Communication Tereso Reis Spouse Primary Decision Maker [phone] (Home) Modesta Holida Child Supplemental (Other) Decis ion Maker Cristiana Neer Child Secondary Decision Maker Healthcare Agents on File Name Relationship Healthcare Agent Relationshi p Communication Tereso Reis Spouse Primary Decision Maker [phone] (Home) Modesta Holida Child Supplemental (Other) Decis ion Maker Cristiana Neer Child Secondary Decision Maker Healthcare Agents on File Name Relationship Healthcare Agent Relationshi p Communication Tereso Reis Spouse Primary Decision Maker Modesta Holida Child Supplemental (Other) Decis ion Maker Cristiana Neer Child Secondary Decision Maker Healthcare Agents on File Name Relationship Healthcare Agent Relationshi p Communication Tereso Reis Spouse Primary Decision Maker Modesta Holida Child Supplemental (Other) Decis ion Maker Cristiana Neer Child Secondary Decision Maker Reason for Referral Status Reason Specialty Diagnoses / Procedures Referred By Contact Referred To Contact Authorized Cardiology Diagnoses Preop testing Procedures ECG 12 Lead Declan Romeo MD [address] [place] [address] Status Reason Specialty Diagnoses / Procedures Referre d By Contact Referred To Contact Closed Radiology Diagnoses Personal history of tobacco use Cigarette nicotine dependence, uncomplicated Procedures CT Lung Screen (Annual) Tereso Orozco APRN - [place] [address] [place] [address] Status Reason Specialty Diagnoses / Procedures Referre d By Contact Referred To Contact Closed Radiology Diagnoses Lumbosacral radiculopathy at L5 Foot drop, right Procedures MRI LUMBAR SPINE WO CONTRAST MD MRI, LUMBAR SPINE Tereso Orozco EMERGENCY MEDICINE - [place] [address] Status Reason Specialty Diagnoses / Procedures Re ferred By Contact Referred To Contact Open Cardiology Diagnoses Essential hypertension Hyperlipidemia, unspecified hyperlipidemia type Pre-operative clearance Procedures EKG 12 Lead Gunner Pena MD [address] [place] [address] Status Reason Specialty Diagnoses / Procedures Referre d By Contact Referred To Contact Closed Radiology Diagnoses Pain Procedures Fluoro For Surgical Procedures Ronnie King MD [address] [facility], [address] [place] [address] Status Reason Specialty Diagnoses / Procedures Referre d By Contact Referred To Contact Open Diagnoses Essential hypertension Encounter for abdominal aortic aneurysm (AAA) screening Smoker Procedures US SCREENING FOR AAA US, RETROPERITNL ABD, LTD Tereso Orozco, EMERGENCY MEDICINE - [place] [address] [facility] [address] [place] [address] Status Reason Specialty Diagnoses / Procedures Referred By Contact Referred To Contact Authorized Radiology Diagnoses Personal history of nicotine dependence Procedures CT lung screen [Initial/Annual] Tereso Orozco EMERGENCY MEDICINE - [place] [address] Specialty Diagnoses / Procedures Referred By Contac t Referred To Contact Radiology Diagnoses Personal history of nicotine dependence Procedures CT lung screen [Initial/Annual] Tereso Orozco, EMERGENCY MEDICINE - [place] [address] Referral ID Status Reason Start Date Expiration Date Visits Re quested Visits Authorized [id number] Closed 10/30/2021 10/30/2022 1 1 Specialty Diagnoses / Procedures Referred By Contac t Referred To Contact Cardiology Diagnoses Coronary artery calcification seen on CT scan Essential hypertension Centrilobular emphysema (HCC) Smoker History of smoking greater than 50 pack years Procedures Echocardiogram complete Tereso Orozco, EMERGENCY MEDICINE - [place] [address] Referral ID Status Reason Start Date Expiration Date Visits Re quested Visits Authorized [id number] Closed 12/09/2021 12/08/2022 1 1 Specialty Diagnoses / Procedures Referred By Contac t Referred To Contact Cardiology Diagnoses SOB (shortness of breath) Procedures Stress test, Gunner Boland MD [address] [place] [id number] Referral ID Status Reason Start Date Expiration Date Visits Re quested Visits Authorized [id number] Closed 01/22/2022 01/22/2023 1 1 Specialty Diagnoses / Procedures Referred By Contac t Referred To Contact Radiology Diagnoses Balance disorder Procedures MRI LUMBAR SPINE W WO CONTRAST Violet Piña DO [address] [facility] [address] [place] [id number] Referral ID Status Reason Start Date Expiration Date V isits Requested Visits Authorized [id number] Not Required - RTA 06/03/2023 06/02/2024 1 1 Specialty Diagnoses / Procedures Referred By Contac t Referred To Contact Radiology Diagnoses History of smoking greater than 50 pack years Personal history of tobacco use Procedures CT Lung Screen (Initial/Annual/Baseline) Tereso Orozco, EMERGENCY MEDICINE - [place] [address] Referral ID Status Reason Start Date Expiration Date V isits Requested Visits Authorized [id number] Not Required - RTA 12/28/2023 12/27/2024 1 1 Specialty Diagnoses / Procedures Referred By Roxanne t Referred To Contact Rehabilitation Diagnoses Aftercare following surgery of the musculoskeletal system Harleen Barba MD [address] [place] [address] [place] [address] Op Physical Therapy [address] [place] [address] Referral ID Status Reason Start Date Expiration Date V isits Requested Visits Authorized [id number] Authorized 01/25/2024 01/24/2025 1 1 Specialty Diagnoses / Procedures Referred By Roxanne t Referred To Contact Radiology Diagnoses Encounter for other orthopedic aftercare Weakness Procedures CT LUMBAR SPINE WO CONTRAST Harleen Barba MD [address] [place] [id number] Referral ID Status Reason Start Date Expiration Date V isits Requested Visits Authorized [id number] Not Required - RTA 02/26/2024 02/25/2025 1 1 Specialty Diagnoses / Procedures Referred By Roxanne t Referred To Contact Radiology Diagnoses Encounter for other orthopedic aftercare Weakness Procedures MRI LUMBAR SPINE WO CONTRAST Harleen Barba MD [address] [place] [address] Referral ID Status Reason Start Date Expiration Date V isits Requested Visits Authorized [id number] Not Required - RTA 02/26/2024 02/25/2025 1 1 Assessments Diagnosis Preop testing- Primary Unspecified pre-operative examination Diagnosis Personal history of tobacco use Personal history of tobacco use, presenting hazards to health Cigarette nicotine dependence, uncomplicated Tobacco use disorder Diagnosis Lumbosacral radiculopathy at L5 Thoracic or lumbosacral neuritis or radiculitis, unspecified Foot drop, right Other acquired deformity of ankle and foot Diagnosis Essential hypertension Unspecified essential hypertension Hyperlipidemia, unspecified hyperlipidemia type Pre-operative clearance Preoperative examination, unspecified Diagnosis Essential hypertension Unspecified essential hypertension Hyperlipidemia, unspecified hyperlipidemia type Pre-operative clearance Preoperative examination, unspecified Diagnosis Lumbar stenosis Spinal stenosis, lumbar region, without neurogenic claudication Diagnosis Postoperative pain Other acute postoperative pain Diagnosis Pain Generalized pain Diagnosis Essential hypertension Unspecified essential hypertension Encounter for abdominal aortic aneurysm (AAA) screening Smoker Tobacco use disorder Discharge Instructions * Attachments The following attachments cannot be sent through Care Everywhere. * High-Fiber Diet (Eritrean) * Low-Fat: Diet: General Info (Eritrean) documented in this encounter* Instructions* Ronnie King MD - 12/22/2019 medication given may have significant effects after discharge. Therefore on the day of surgery: 1) you should be accompanied by a responsible adult upon discharge and for 24 hours after surgery. Do not drive a motor vehicle, operate machinery, power tools or appliance, drink alcoholic beverages, or make critical decisions for 24 hours 2) Be aware of dizziness, which may cause a fall. Change positions slowly. 3) Eating: you may resume your regular diet but it is better to increase intake slowly with mild foods and working up to your regular diet. 4) Nausea/Vomiting: Nausea and vomiting may occur as you become more active or begin to increase food intake. If this should happen, decrease activity and return to liquids. 5) Pain: Your surgeon may have given you a prescription for pain medication. Take pain medication with food as prescribed. Pain medication may cause constipation, so drink plenty of fluids. You may need to use laxatives. 6) Ice: You may use a cool pack to operative site for 20 min 5-6 times a day as needed for comfort. 8) Dressing: Change dressing as frequently as needed to keep clean and dry. Remove all sticky tape in 5 days. May shower in three days. Do not put soap or soak on the incision until healed. 9) INCREASE ACTIVITY TOLERATED AND INSTRUCTED. GO BY HOW YOU FEEL. 10) See physical therapist when advised by your physician 11) Call your doctor at [phone] for an appointment (or follow up as scheduled). 12) If have an order for X-Rays have done within a week before your follow up appointment. ? Contact OFFICE IF o Increased redness, swelling, excess drainage, and/or pain to surgery site. As well as new onset fevers and or chills. These could signify an infection. o Calf or thigh tenderness to touch as well as increased swelling or redness. This could signify a clot formation. o Numbness or tingling to an area around the incision site or below the incision site (toes). Or ifthe operative extremity becomes cold, blue. o Any rash appears, increased or new onset nausea/vomiting occur. This may indicate a reaction to amedication. o Temp is 38.5 C (101F) 12) If you have any concerns or questions, please call OFFICE. The 24- hour phone is [phone] 13) If you are unable to contact your surgeon, in an emergency situation, go to the nearest hospital emergency room. 14) remove dressing on Thursday and keep him off 15) shower on Thursday 16) no driving * Attachments The following attachments cannot be sent through Care Everywhere. * Coronavirus Disease (COVID-19): General Info (Eritrean) documented in this encounter History of Present Illness * Annetta Mathias APRN - CNP - 12/15/2019 1:00 PM EDT Cardiac alma-op clearance / H & PE dated 11/30/[address] Gunner Pena -- on [place]. EKG dated 11/30/2019 & on Epic. CBC with diff dated 11/30/2019 & on Epic. Sophy-Hex wash instructions given to patient--to be done Thursday12/20/2019 & Thursday12/21/2019. Covid test to be done 12/15/2019 & will self quarantine until OR 12/22/2019. documented in this encounter* Eliezer Braun RN - 12/22/2019 4:06 PM EDT Pt voicing no complints waiting for family for a ride * Eliezer Braun RN - 12/22/2019 3:36 PM EDT Pt has met criteria, awaiting ride from [employer] will be an additional hour * Eliezer Braun RN - 12/22/2019 3:29 PM EDT Pt Ambulated in hallway and voided. Ate and drank at this time no complints voiced * Eliezer Braun RN - 12/22/2019 3:27 PM EDT Pt given discharge instructions at this time verbalized understanding * Tamy Hinojosa RN - 12/22/2019 1:[address] king in to see pt, unable to get ahold of , stated to pt everything went well documented in this encounter Additional Source Comments (unrecognized sect ion and content) No Status Records FoundNo Status Records FoundNo Status Records FoundNo Status Records FoundNo Status Records Found INFORMATION SOURCE (unrecogn ized section and content) DATE CREATED AUTHOR 10/07/2017 [facility] DATE CREATED AUTHOR AUTHOR'S ORGANIZ ATION 12/26/2019 [facility] DATE CREATED AUTHOR AUTHOR'S ORGANIZ ATION 03/10/2024 [facility] DATE CREATED AUTHOR AUTHOR'S ORGANIZ ATION 05/08/2024 [facility] DATE CREATED AUTHOR AUTHOR'S ORGANIZ ATION 05/25/2024 [facility] EPIC Reason for Visit (unrecogniz ed section and content) Status Reason Specialty Diagnoses / Procedures Referre d By Contact Referred To Contact Diagnoses HX OF RECURRENT MULTIPLE ADENOMATOUS POLYP Procedures COLONOSCOPY Status Reason Specialty Diagnoses / Procedures Referre d By Contact Referred To Contact Closed Radiology Diagnoses Personal history of tobacco use Cigarette nicotine dependence, uncomplicated Procedures CT Lung Screen (Annual) Tereso Orozco EMERGENCY MEDICINE - PHYSICAL EDUCATION AIDE [place] [id number] [facility] [address] [place] [address] Status Reason Specialty Diagnoses / Procedures Referre d By Contact Referred To Contact Closed Radiology Diagnoses Lumbosacral radiculopathy at L5 Foot drop, right Procedures MRI LUMBAR SPINE WO CONTRAST MD MRI, LUMBAR SPINE Tereso Orozco, EMERGENCY MEDICINE - [place] [address] Status Reason Specialty Diagnoses / Procedures Re ferred By Contact Referred To Contact Diagnoses Radiculopathy Weakness UWXLOVAN-YKEKMFEMHLBLX-GB AKNESS Procedures MD LAMNOTMY INCL W/DCMPRSN NRV ROOT 1 INTRSPC LUMBR L 3-4, L 4-5, L5-S1 DECOMPRESSON FORAMINOTOMIES 1 1/2 HOURS/ 1 C-ARM 2ND CASE Ronnie King MD [address], [address] [place] [address] [facility] Status Reason Specialty Diagnoses / Procedures Referre d By Contact Referred To Contact Open Diagnoses Essential hypertension Encounter for abdominal aortic aneurysm (AAA) screening Smoker Procedures US SCREENING FOR AAA US, RETROPERITNL ABD, LTD Tereso Orozco, EMERGENCY MEDICINE - PHYSICAL EDUCATION AIDE [place] [id number] [facility] [address] [place] [address] Status Reason Specialty Diagnoses / Procedures Referred By Contact Referred To Contact Authorized Radiology Diagnoses Personal history of nicotine dependence Procedures CT lung screen [Initial/Annual] Tereso Orozco, EMERGENCY MEDICINE - [place] [address] Reason Comments Joint Swelling x2 days with redness , warmth, pain and edema - February 12 had a skin biopsy to left elbow Specialty Diagnoses / Procedures Referred By Contac t Referred To Contact Radiology Diagnoses Personal history of nicotine dependence Procedures CT lung screen [Initial/Annual] Tereso Orozco, EMERGENCY MEDICINE - [place] [address] Referral ID Status Reason Start Date Expiration Date Visits Re quested Visits Authorized [id number] Closed 10/30/2021 10/30/2022 1 1 Specialty Diagnoses / Procedures Referred By Contac t Referred To Contact Cardiology Diagnoses Coronary artery calcification seen on CT scan Essential hypertension Centrilobular emphysema (HCC) Smoker History of smoking greater than 50 pack years Procedures Echocardiogram complete Tereso Orozco, EMERGENCY MEDICINE - [place] [address] Referral ID Status Reason Start Date Expiration Date Visits Re quested Visits Authorized [id number] Closed 12/09/2021 12/08/2022 1 1 Specialty Diagnoses / Procedures Referred By Contac t Referred To Contact Cardiology Diagnoses SOB (shortness of breath) Procedures Stress test, Gunner Boland MD [address] [place] [address] Referral ID Status Reason Start Date Expiration Date Visits Re quested Visits Authorized [id number] Closed 01/22/2022 01/22/2023 1 1 Reason Comments Skin Check Specialty Diagnoses / Procedures Referred By Contac t Referred To Contact Radiology Diagnoses Balance disorder Procedures MRI LUMBAR SPINE W WO CONTRAST Violet Piña DO [address] [place] [id number] Referral ID Status Reason Start Date Expiration Date V isits Requested Visits Authorized [id number] Not Required - RTA 06/03/2023 06/02/2024 1 1 Specialty Diagnoses / Procedures Referred By Contac t Referred To Contact Diagnoses Colon cancer screening Colon cancer screening [Z12.11] Procedures MD COLONOSCOPY FLX DX W/COLLJ SPEC WHEN PFRMD COLONOSCOPY Cleopatra Sotelo MD [address] [place] [address] [facility] [address] [place] [address] Referral ID Status Reason Start Date Expiration Date Visits Re quested Visits Authorized [id number] 1 1 Specialty Diagnoses / Procedures Referred By Contac t Referred To Contact Radiology Diagnoses History of smoking greater than 50 pack years Personal history of tobacco use Procedures CT Lung Screen (Initial/Annual/Baseline) Tereso Orozco, EMERGENCY MEDICINE - [place] [address] Referral ID Status Reason Start Date Expiration Date V isits Requested Visits Authorized [id number] Not Required - RTA 12/28/2023 12/27/2024 1 1 Reason Comments Physical Therapy Specialty Diagnoses / Procedures Referred By Contac t Referred To Contact Rehabilitation Diagnoses Aftercare following surgery of the musculoskeletal system Harleen Barba MD [address] [place] [address] [place] [address] Phone: tel: fax: [facility] [address] [place] [address] Phone: tel: fax: Referral ID Status Reason Start Date Expiration Date V isits Requested Visits Authorized [id number] Authorized 01/25/2024 01/24/2025 16 199 Referral ID Status Reason Start Date Expiration Date V isits Requested Visits Authorized [id number] Authorized 01/25/2024 04/27/2024 16 199 Specialty Diagnoses / Procedures Referred By Contac t Referred To Contact Radiology Diagnoses Encounter for other orthopedic aftercare Weakness Procedures CT LUMBAR SPINE WO CONTRAST Harleen Barba MD [address] [place] [address] [place] [address] Referral ID Status Reason Start Date Expiration Date V isits Requested Visits Authorized [id number] Not Required - RTA 02/26/2024 02/25/2025 1 1 Specialty Diagnoses / Procedures Referred By Contac t Referred To Contact Radiology Diagnoses Encounter for other orthopedic aftercare Weakness Procedures MRI LUMBAR SPINE WO CONTRAST Harleen Barba MD [address] [place] [address] Referral ID Status Reason Start Date Expiration Date V isits Requested Visits Authorized [id number] Not Required - RTA 02/26/2024 02/25/2025 1 1 Referral ID Status Reason Start Date Expiration Date V isits Requested Visits Authorized [id number] Authorized 01/25/2024 04/27/2024 24 199 Referral ID Status Reason Start Date Expiration Date Visits Re quested Visits Authorized [id number] Closed 01/25/2024 04/27/2024 24 199 Dario Smith MD - 12/20/2018 8:14 AM EDT H&P Notes (unrecognized sect ion and content) INTERVAL HISTORY AND PHYSICAL Patient Name: Elizabeth Reis Admit Date: [id number] MR #: [id number] : 1945 The H&P has been reviewed and the patient has been examined. I concur with the findings of the H&P. There are no significant changes. It is appropriate to proceed with the planned procedure. Dario Smith MD 12/20/2018 8:14 AM documented in this encounter Zara Herman RN - 12/20/2018 10:30 AM Zara Salas RN - 12/20/2018 9:57 AM Zara Salas RN - 12/20/2018 6:46 AM EDT Nursing Notes (unrecognized section and content) Discharge instructions given with pt and stating understanding copy of AVS and colonoscopy instructions given. Up at bedside dressed per self Taking cofee talking with Dr Smith here to see pt Tap water enema given with cloudy yellow results maliha well documented in this encounter Brief Op Note - Dario Smith MD - 12/20/2018 9:37 AM EDT Miscellaneous Notes (unrecog nized section and content) Brief Post Operative Note Patient Name: Elizabeth Reis : 1945 (73 y.o.) Date of Service: 12/20/2018 [facility]: [id number] Procedure(s): COLONOSCOPY plus polypectomy with snare and with biopsy forceps Pre-Operative Diagnoses: * HX OF RECURRENT MULTIPLE ADENOMATOUS POLYP; High risk for colon CA Post-Operative Diagnoses: Multiple polyps - hepatic f]lexure and distal ascending colon; moderate diverticulosis sigmoid; external hemorrhoids Surgeon(s) and Role: * Dario Smith MD - Primary Anesthesiologist: Collin Stahl MD Health And Safety Representative: Nicole Cerna RN Scrub Person: Mirella Patel RN Health And Safety Representative Orientee: Chiquita Yoo RN Scrub Person Orientee: Rowan Diaz RN Operative findings: jordyn as post op Intra and immediate post-operative complications: none Type of anesthesia used: Monitor Anesthesia Care Estimated blood loss: Minimal Estimated urine output: Refer to surgical log Specimen(s): ID Type Source Tests Collected by Time Destination A : polyp at hepatic flexure Polypectomy Colon, Hepatic Flexure TISSUE EXAM Dario Smith MD 12/20/2018 0858 B : POLYP AT HEPATIC FLEXURE Polypectomy Colon, Hepatic Flexure TISSUE EXAM Dario Smith MD 12/20/2018 0908 Implant(s): * No implants in log * Drain(s): * No LDAs found * Wound(s): * No LDAs found * Dario Smith MD 12/20/2018 9:37 AM documented in this encounter Ordered Prescriptions (unrec ognized section and content) Prescription Sig Dispensed Refills Start Date End Da te clindamycin (CLEOCIN) 300 MG capsule Take 1 capsule by mouth 3 times daily for 7 days 21 capsule 0 03/01/2021 03/08/2021 No Frequency Active and Recently Administ ered Medications (unrecognized section and content) Medication Order 02/27/2021 02/28/2021 03/01/2021 lidocaine PF 1 % injection Starting on Thu03/01/21 at 1455, For 1 dose, Mikhail Eubanks: cabinet override 1500 (Due) Continuous Medication Order 06/14/2023 06/15/2023 06/16/2023 lactated ringers IV soln infusion IntraVENous, at 100 mL/hr, CONTINUOUS, Starting on Thu06/16/23 at 0745, Pre-op (day of surgery) 0744 (New Bag - Prov ider: Brenda Jameson RN)0929 (NoRateChange - Provider: FIORDALIZA Yanes CRNA)0955 (Anesthesia Volume Adjustment - Provider: FIORDALIZA Yanes CRNA) PRN Medication Order 06/14/2023 06/15/2023 06/16/2023 simethicone (MYLICON) 40 MG/0.6ML suspension drops (CANCELED) PRN, Starting on Thu06/16/23 at 0944, Until Thu06/16/23 at 0958, Intra-op 0944 (Given - Provid er: Cleopatra Sotelo MD) Care Teams (unrecognized sec tion and content) Laboratory Inspector Relationship Specialty Start Date End Date Tereso Orozco, EMERGENCY MEDICINE - PHYSICAL EDUCATION [place] [address] PCP - General Certified Nurse Practitioner 11/24/14 Laboratory Inspector Relationship Specialty Start Date End Date Tereso Orozco EMERGENCY MEDICINE - [place] [address] PCP - General Certified Nurse Practitioner 11/24/14 Laboratory Inspector Relationship Specialty Start Date End Date Tereso Orozco EMERGENCY MEDICINE - [place] [address] PCP - General Certified Nurse Practitioner 11/24/14 Laboratory Inspector Relationship Specialty Start Date End Date Tereso Orozco EMERGENCY MEDICINE - PHYSICAL EDUCATION [place] [facility] [place] [address] PCP - General Certified Nurse Practitioner 11/24/14 Laboratory Inspector Relationship Specialty Start Date End Date Tereso Orozco EMERGENCY MEDICINE - PHYSICAL EDUCATION [place] [address] PCP - General Certified Nurse Practitioner 11/24/14 Laboratory Inspector Relationship Specialty Start Date End Date Tereso Orozco EMERGENCY MEDICINE - [place] [address] PCP - General Certified Nurse Practitioner 11/24/14 Laboratory Inspector Relationship Specialty Start Date End Date Tereso Orozco EMERGENCY MEDICINE - [place] [address] PCP - General Certified Nurse Practitioner 11/24/14 Laboratory Inspector Relationship Specialty Start Date End Date Tereso Orozco EMERGENCY MEDICINE - PHYSICAL [place]UCATION [place] [facility] [address] PCP - General Certified Nurse Practitioner 11/24/14 Laboratory Inspector Relationship Specialty Start Date End Date Tereso Orozco, EMERGENCY MEDICINE - PHYSICAL EDUCATION AIDE [address] [place] [address] PCP - General Certified Nurse Practitioner 11/24/14 Laboratory Inspector Relationship Specialty Start Date End Date Tereso Orozco EMERGENCY MEDICINE - PHYSICAL EDUCATION AIDE [address] [place] [address] PCP - General Certified Nurse Practitioner 11/24/14 Laboratory Inspector Relationship Specialty Start Date End Date Tereso Orozco, EMERGENCY MEDICINE - PHYSICAL EDUCATION AIDE [address] [place] [address] PCP - General Certified Nurse Practitioner 11/24/14 Laboratory Inspector Relationship Specialty Start Date End Date Tereso Orozco EMERGENCY MEDICINE - PHYSICAL EDUCATION AIDE [address] [place] [address] PCP - General Certified Nurse Practitioner 11/24/14 Laboratory Inspector Relationship Specialty Start Date End Date Tereso Orozco EMERGENCY MEDICINE - PHYSICAL EDUCATION AIDE [address] [place] [address] PCP - General Certified Nurse Practitioner 11/24/14 Laboratory Inspector Relationship Specialty Start Date End Date Tereso Orozco CNP PCP - General Nurse Practitioner 12/17/18 Laboratory Inspector Relationship Specialty Start Date End Date Tereso Orozco CNP [address] [place] [address] PCP - General Nurse Practitioner 12/17/18 Laboratory Inspector Relationship Specialty Start Date End Date Tereso Orozco CNP [address] [place] [address] PCP - General Nurse Practitioner 12/17/18 Laboratory Inspector Relationship Specialty Start Date End Date Tereso Orozco PHYSICAL EDUCATION AIDE [address] [place] [address] PCP - General Nurse Practitioner 12/17/18 Laboratory Inspector Relationship Specialty Start Date End Date Tereso Orozco PHYSICAL EDUCATION AIDE [address] [place] [address] PCP - General Nurse Practitioner 12/17/18 Laboratory Inspector Relationship Specialty Start Date End Date Tereso Orozco PHYSICAL EDUCATION AIDE [address] [place] [place] [address] PCP - General Nurse Practitioner 12/17/18 Laboratory Inspector Relationship Specialty Start Date End Date Tereso Orozco CNP [address] [place] [address] PCP - General Nurse Practitioner 12/17/18 Laboratory Inspector Relationship Specialty Start Date End Date Tereso Orozco CNP [address] [place] [place] [address] PCP - General Nurse Practitioner 12/17/18 Laboratory Inspector Relationship Specialty Start Date End Date Tereso Orozco PHYSICAL EDUCATION AIDE [address] [place] [address] PCP - General Nurse Practitioner 12/17/18 Laboratory Inspector Relationship Specialty Start Date End Date Tereso Orozco CNP [address] [place] [address] PCP - General Nurse Practitioner 12/17/18 Laboratory Inspector Relationship Specialty Start Date End Date Tereso Orozco PHYSICAL EDUCATION AIDE [address] [place] [address] PCP - General Nurse Practitioner 12/17/18 Laboratory Inspector Relationship Specialty Start Date End Date Unallocated, [place] Jose Rafael, [address] [place] [address] PCP - General Family Medicine 06/30/23 Violet Piña DO [address] [place] [address] Referring Physician Neurology 06/30/23 FOR RECORDS PERTAINING TO PATIENTS WHO ARE OR HAVE BEEN ENROLLED IN A CHEMICAL DEPENDENCY/SUBSTANCEABUSE PROGRAM, SOME INFORMATION MAY BE OMITTED. This clinical summary was aggregated from multiple sources. Caution should be exercised in using it in the provision of clinical care. This summary normalizes information from multiple sources, and as a consequence, information in this document may materially change the coding, format and clinical context of patient data. In addition, data may be omitted in some cases. CLINICAL DECISIONS SHOULD BE BASED ON THE PRIMARY CLINICAL RECORDS. [employer] [facility]. provides no warranty or guarantee of the accuracy or completeness of information in this document.
== END 2024-06-17 11:24 | disposition home or self-care (01) ==
LOC: EC 11:23
PROVIDERS: Visit Provider Orthopaedic Surgery Orthopaedic Surgery of the Spine
DX: M43.26 Fusion of spine, lumbar region (principal); Z47.89 Encounter for other orthopedic aftercare
CPT/HCPCS: 72100